=== PATIENT | female | born 1965 | race Caucasian/White ===

== ENCOUNTER 2017-12-15 08:28 | Inpatient (IN) ==
[2017-12-15] MEDS ORDERED: Furosemide 40 MG/4 ML VIAL IVP ONE (08:44)
[2017-12-15] MEDS ORDERED: methylPREDNISolone 125 MG/2 ML VIAL IVP ONE (08:44)
[2017-12-15] MEDS ORDERED: Ipratropium/Albuterol Neb 3 ML IH ONE (08:44)
[2017-12-15 09:00] LABS: Basophils # 0.1 K/mcL (0.0-0.2); Basophils % 0.3 %; Eosinophils % 0.1 %; Hematocrit 51.7 % (35.3-44.9); Hemoglobin 16.2 g/dL (11.5-15.4); Immature Granulocytes % 0.5 % (0-4); Lymphocytes # 0.9 K/mcL (0.6-4.6); Mean Corpuscular HGB Conc 31.3 g/dL (31.6-35.5); Mean Corpuscular Hemoglobin 28.5 pg (28.0-33.3); Mean Corpuscular Volume 90.9 fL (83.0-100.0); Monocytes # 1.4 K/mcL (0.0-1.3); Monocytes % 7.4 %; Platelet Count 202 K/mcL (140-400); Red Blood Count 5.69 M/mcL (3.82-4.97); Red Cell Distribution Width 15.6 % (11.5-14.5); Segmented Neutrophils % 86.7 %
[2017-12-15 09:09] LABS: INR 1.2; Prothrombin Time 13.3 Seconds (9.4-12.1)
[2017-12-15] MEDS ORDERED: Nitroglycerin 25 MG/250 ML INFUS..BTL IVC SCH (09:15)
[2017-12-15 09:20] LABS: BUN/Creatinine Ratio 15 (6-26); Blood Urea Nitrogen 11 mg/dL (6-20); Calcium 9.9 mg/dL (8.6-10.3); Carbon Dioxide 32 mEq/L (23-29); Chloride 95 mEq/L (98-107); Glucose 233 mg/dL (70-105); Osmolality,Calculated 283 (280-300); Potassium 4.6 mEq/L (3.5-5.1); Sodium 133 mEq/L (136-145); Troponin I < 0.03 ng/mL (< 0.04); eGFR For Non-African Americans > 60 (> 60)
[2017-12-15] MEDS ORDERED: 0.9 % Sodium Chloride 250 ML ONE (09:23)
[2017-12-15] MEDS ORDERED: levoFLOXacin 500 MG TABLET PO ONE (09:42)
[2017-12-15 09:47] LABS: Bilirubin,Urine Negative (Negative); Blood,Urine Small (Negative); Clarity,Urine Clear (Clear); Color,Urine Yellow (Yellow); Glucose,Urine (UA) Normal (Normal); Ketones,Urine Negative (Negative); Leukocyte Esterase,Urine Negative (Negative); Nitrite,Urine Negative (Negative); Protein,Urine 30 mg/dL (Neg-Trace); Urobilinogen,Urine Normal (Normal)
[2017-12-15 09:50] LABS: Bacteria,Urine None Seen per hpf (None-Few); Hyaline Casts,Urine None Seen per lpf (None-Few); RBC,Urine 0-3 per hpf (0-3); Squamous Epithelial Cell,Urine Many per lpf (None-Few); WBC,Urine 0-3 per hpf (0-3)
[2017-12-15] MEDS ORDERED: Aspirin 81 MG TAB.CHEW ONE (10:09)
[2017-12-15] MEDS: Aspirin 81 MG TAB.CHEW PO STA ×2 (10:10→10:24)
[2017-12-15] MEDS ORDERED: Isovue-370 500 ML INFUS..BTL IV ONE (10:41)
--- NOTE | 2017-12-15 10:47 | Emergency Department Note ---
Disposition Clinical Impression: Chest pain, COPD exacerbation, Lung nodules, Atypical chest pain Disposition: Admitted As Inpatient Condition: Fair Chest Pain HPI - General Chief Complaint: ED Chest Pain Stated Complaint: "CP,back pain,cough" Time Seen by Provider: 12/15/17 08:30 Source: patient, family Limitations: no limitations Vital Signs Reviewed: Yes Nursing Notes Reviewed: Yes - History of Present Illness HPI Narrative: Ms. Urbano is a 52 year old female patient presenting to the emergency department due to acute onset of dull chest pain that started about 3 hours ago. Pt states that she woke up with pain in her chest and took a nitro which helped relieve her discomfort. Pt also states sob, nausea and radiation of pain to left arm. Pt states that the sob has been ongoing for the past few days but assumed it was related to her history of copd, but was concerned about the intermittent chills/fevers she has been experiencing. 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 Pt complaint: chest pain Onset (ago): hour(s) Duration: constant Pain Location: left chest Severity scale (1-10): 6 Quality: dull Pain Radiation: LUE Improves with: nothing Worsens with: nothing Associated symptoms: Reports: nausea, dyspnea, cough - Related Data Home Medications Medication Instructions Recorded Confirmed Aspirin [Adult Aspirin Regimen] 81 mg PO DAILY 12/15/17 12/15/17 Atorvastatin Calcium [Lipitor] 80 mg PO DAILY 12/15/17 12/15/17 Cholecalciferol (D-3) [Vitamin D] 1,000 unit PO BID 12/15/17 12/15/17 Diclofenac Sodium [Voltaren] 1 appl TP QID PRN 12/15/17 12/15/17 Divalproex (24 HR) [Depakote ER 250 mg PO BID 12/15/17 12/15/17 (24 HR)] Ferrous Sulfate [Iron] 325 mg PO DAILY 12/15/17 12/15/17 Furosemide [Lasix] 80 mg PO DAILY PRN 12/15/17 12/15/17 Gabapentin [Neurontin] 800 mg PO TID 12/15/17 12/15/17 Insulin ASPART [Novolog Flexpen] 2 - 12 unit SQ TID 12/15/17 12/15/17 Insulin DETEMIR [Levemir Flextouch] 15 unit PO DAILY 12/15/17 12/15/17 Ipratropium/Albuterol Sulfate 1 puff IH QID 12/15/17 12/15/17 [Combivent Respimat Inhal [place]] Liraglutide [Victoza 3-Venkat] 1.8 mg SQ DAILY 12/15/17 12/15/17 Loratadine [Allergy Relief] 10 mg PO DAILY 12/15/17 12/15/17 Magnesium Oxide [Magnesium] 400 mg PO DAILY 12/15/17 12/15/17 Metformin HCl 1,000 mg PO BID 12/15/17 12/15/17 Metoprolol [Lopressor] 25 mg PO BID 12/15/17 12/15/17 Montelukast [Singulair] 10 mg PO DAILY 12/15/17 12/15/17 Omeprazole [PriLOSEC] 40 mg PO DAILY 12/15/17 12/15/17 Potassium Chloride [K-Tab ER] 20 meq PO DAILY 12/15/17 12/15/17 RX: Budesonide/Formoterol 160/4.5 2 puff PO BID 12/15/17 12/15/17 [Symbicort 160/4.5] RX: HYDROcodone/Acet 10/325 mg 0.5 tab PO BID 12/15/17 12/15/17 [Vancleave 10-325 mg] RX: Nitroglycerin [Nitrostat] 1 tab SL AD 12/15/17 12/15/17 RX: Oxygen 2 - 5 l IH DAILY 12/15/17 12/15/17 RX: Sertraline [Zoloft] 100 mg PO DAILY 12/15/17 12/15/17 Ticagrelor [Brilinta] 90 mg PO BID 12/15/17 12/15/17 Tiotropium [Spiriva] 1 puff IH DAILY 12/15/17 12/15/17 Allergies Allergy/AdvReac Type Severity Reaction Status Date / Time No Known Allergies Allergy Verified 12/15/17 08:42 Constitutional: Reports: chills Cardiovascular: Reports: chest pain, dyspnea on exertion Respiratory: Reports: cough, dyspnea Gastrointestinal: Reports: nausea. Denies: abdominal pain, vomiting Musculoskeletal: Reports: back pain. Denies: neck pain Psychiatric: Denies: anxiety, depression Endocrine: Denies: fatigue, heat or cold intolerance Hematological/Lymphatic: Denies: easy bleeding, easy bruising Chest Pain PMH - Past Medical History Medical history: Reports: diabetes, hyperlipidemia, hypertension, myocardial infarction Psychiatric history: Reports: no psych history - Social History Smoking Status: Former smoker Alcohol use: Reports: none Drug use: Reports: none Physical Exam - General Limitations: no limitations General appearance: alert - Head Head exam: atraumatic, normocephalic - Chest Chest inspection: Present: symmetric chest wall rise - Respiratory Respiratory exam: Present: other (Diffuse Crackles) - Cardiovascular Cardiovascular exam: Present: regular rate, normal rhythm - Abdominal Exam Abdominal exam: Present: soft, Non-Tender, normal bowel sounds - Expanded Lower Extremity Exam Hip/Pelvis exam: Present: normal inspection Upper leg exam: Present: normal inspection Knee exam: Present: normal inspection Lower leg exam: Present: normal inspection Ankle exam: Present: normal inspection Foot/toe exam: Present: normal inspection - Back Exam Back exam: Present: other - Neurological Exam Neurological exam: Present: alert, oriented X3 - Psychiatric Psychiatric exam: Present: normal affect, normal mood - Skin Skin exam: Present: warm, dry, intact Course Vital Signs Temperature 98.2 F 12/15/17 08:30 Pulse Rate 123 12/15/17 08:30 Respiratory Rate 20 12/15/17 08:30 Blood Pressure 133/83 12/15/17 08:30 O2 Sat by Pulse Oximetry 88 12/15/17 08:30 Temperature 98.2 F 12/15/17 08:36 Pulse Rate 132 12/15/17 10:06 Respiratory Rate 18 12/15/17 13:49 Blood Pressure 105/64 12/15/17 13:49 O2 Sat by Pulse Oximetry 93 12/15/17 10:06 Oxygen Delivery Oxygen Delivery Nasal Cannula Chest Pain - Lab Data Result diagrams: 12/15/17 08:42 12/15/17 08:42 Lab Results 12/15/17 12/15/17 12/15/17 Range/Units 08:42 08:42 08:42 WBC 18.5 H (4.3-11.1) K/mcL RBC 5.69 H (3.82-4.97) M/mcL Hgb 16.2 H (11.5-15.4) g/dL Hct 51.7 H (35.3-44.9) % MCV 90.9 (83.0-100.0) fL MCH 28.5 (28.0-33.3) pg MCHC 31.3 L (31.6-35.5) g/dL RDW 15.6 H (11.5-14.5) % Plt Count 202 (140-400) K/mcL MPV 11.0 (9.4-12.4) fL Immature Gran % 0.5 (0-4) % Seg Neutrophils % 86.7 % Lymphocytes % 5.0 % Monocytes % 7.4 % Eosinophils % 0.1 % Basophils % 0.3 % Neutrophils # 16.0 H (1.6-8.9) K/mcL Lymphocytes # 0.9 (0.6-4.6) K/mcL Monocytes # 1.4 H (0.0-1.3) K/mcL Eosinophils # 0.0 (0.0-0.6) K/mcL Basophils # 0.1 (0.0-0.2) K/mcL PT 13.3 H (9.4-12.1) Seconds INR 1.2 D-Dimer 967 H (0-500) ng/mLFEU Sodium 133 L (136-145) mEq/L Potassium 4.6 (3.5-5.1) mEq/L Chloride 95 L (98-107) mEq/L Carbon Dioxide 32 H (23-29) mEq/L BUN 11 (6-20) mg/dL Creatinine 0.74 (0.60-1.20) mg/dL Est GFR ( Amer) > 60 (> 60) Est GFR (Non-Af Amer) > 60 (> 60) BUN/Creatinine Ratio 15 (6-26) Glucose 233 H (70-105) mg/dL Calculated Osmolality 283 (280-300) Calcium 9.9 (8.6-10.3) mg/dL Troponin I < 0.03 (< 0.04) ng/mL B-Natriuretic Peptide (Less than 100) pg/mL Urine Color (Yellow) Urine Clarity (Clear) Urine pH (5.0-8.0) pH Units Ur Specific [place] (1.010-1.025) Urine Protein (Neg-Trace) mg/dL Urine Glucose (UA) (Normal) mg/dL Urine Ketones (Negative) mg/dL Urine Blood (Negative) Urine Nitrite (Negative) Urine Bilirubin (Negative) Urine Urobilinogen (Normal) mg/dL Ur Leukocyte Esterase (Negative) Urine Microscopic RBC (0-3) per hpf Urine Microscopic WBC (0-3) per hpf Ur Squamous Epith Cells (None-Few) per lpf Urine Bacteria (None-Few) per hpf Hyaline Casts (None-Few) per lpf Ur Culture Indicated? (NO) 12/15/17 12/15/17 Range/Units 08:42 09:36 WBC (4.3-11.1) K/mcL RBC (3.82-4.97) M/mcL Hgb (11.5-15.4) g/dL Hct (35.3-44.9) % MCV (83.0-100.0) fL MCH (28.0-33.3) pg MCHC (31.6-35.5) g/dL RDW (11.5-14.5) % Plt Count (140-400) K/mcL MPV (9.4-12.4) fL Immature Gran % (0-4) % Seg Neutrophils % % Lymphocytes % % Monocytes % % Eosinophils % % Basophils % % Neutrophils # (1.6-8.9) K/mcL Lymphocytes # (0.6-4.6) K/mcL Monocytes # (0.0-1.3) K/mcL Eosinophils # (0.0-0.6) K/mcL Basophils # (0.0-0.2) K/mcL PT (9.4-12.1) Seconds INR D-Dimer (0-500) ng/mLFEU Sodium (136-145) mEq/L Potassium (3.5-5.1) mEq/L Chloride (98-107) mEq/L Carbon Dioxide (23-29) mEq/L BUN (6-20) mg/dL Creatinine (0.60-1.20) mg/dL Est GFR ( Amer) (> 60) Est GFR (Non-Af Amer) (> 60) BUN/Creatinine Ratio (6-26) Glucose (70-105) mg/dL Calculated Osmolality (280-300) Calcium (8.6-10.3) mg/dL Troponin I (< 0.04) ng/mL B-Natriuretic Peptide 61 (Less than 100) pg/mL Urine Color Yellow (Yellow) Urine Clarity Clear (Clear) Urine pH 6.0 (5.0-8.0) pH Units Ur Specific [place] 1.010 (1.010-1.025) Urine Protein 30 H (Neg-Trace) mg/dL Urine Glucose (UA) Normal (Normal) mg/dL Urine Ketones Negative (Negative) mg/dL Urine Blood Small H (Negative) Urine Nitrite Negative (Negative) Urine Bilirubin Negative (Negative) Urine Urobilinogen Normal (Normal) mg/dL Ur Leukocyte Esterase Negative (Negative) Urine Microscopic RBC 0-3 (0-3) per hpf Urine Microscopic WBC 0-3 (0-3) per hpf Ur Squamous Epith Cells Many H (None-Few) per lpf Urine Bacteria None Seen (None-Few) per hpf Hyaline Casts None Seen (None-Few) per lpf Ur Culture Indicated? NO (NO) Attestation Statement - Attestation Attestation: I, Eleno Guillermo DO, examined this patient [id number] and my medical decision-making was reviewed with Saul SARGENT-JOSIE I agree with the documented findings, disposition and treatment plan as described except to the extent set forth below. Please see my progress notes for details.
--- NOTE | 2017-12-15 10:48 | Emergency Department Note ---
Disposition Clinical Impression: Chest pain, COPD exacerbation, Lung nodules, Atypical chest pain Disposition: Admitted As Inpatient Condition: Fair Time of Disposition: 09:54 General Adult HPI - General Chief complaint: ED Chest Pain Stated complaint: "CP,back pain,cough" Time Seen by Provider: 12/15/17 08:30 Source: patient, family Mode of arrival: wheelchair Limitations: no limitations Nursing Notes Reviewed: Yes Vital Signs Reviewed: Yes - History of Present Illness HPI Narrative: Patient is a 52-year-old female that presents emergency Department with chest pain. Patient states that this began around 4:30 this morning. Patient states is located on the left side of her chest and will radiate into her left neck. Patient denies any radiation to her arms or into her back. Patient states that she has had some associated shortness of breath with her chest pain. Patient al so reports that she took one nitroglycerin and this did mildly help her pain. Patient also states that she has had one episode of vomiting. Patient states that she has had 2 previous MIs and 2 stents placed. Patient also states that she does have a history of congestive heart failure and COPD. Patient states that her shortness of breath began approximately one day ago. Patient denies any hormone therapy, recent long car rides, recent surgeries or any history of cancer. Pain Scale: 0 - Related Data Allergies Allergy/AdvReac Type Severity Reaction Status Date / Time No Known Allergies Allergy Verified 12/15/17 08:42 All systems ED: reviewed and negative except as stated. Cardiovascular: Reports: chest pain Respiratory: Reports: cough, dyspnea Gastrointestinal: Reports: nausea, vomiting Past Medical History - Past Medical History Medical history: Reports: diabetes, hyperlipidemia, hypertension, myocardial infarction Psychiatric history: Reports: no psych history - Social History Smoking Status: Former smoker Smokeless Tobacco Status: No Alcohol use: Reports: none Drug use: Reports: none Physical Exam - General Limitations: no limitations General appearance: alert, in no apparent distress - Head Head exam: atraumatic, normocephalic - Eye Eye exam: Present: normal appearance, EOMI - Neck Neck exam: Present: normal inspection, full ROM, trachea midline - Respiratory Respiratory exam: Present: other (R[place] bilaterally) - Cardiovascular Cardiovascular exam: Present: normal rhythm, tachycardia, normal heart sounds, +S1, +S2 - Abdominal Exam Abdominal exam: Present: soft, Non-Tender, normal bowel sounds - Neurological Exam Neurological exam: Present: alert, oriented X3 - Psychiatric Psychiatric exam: Present: normal affect, normal mood - Skin Skin exam: Present: warm, dry, intact Course Vital Signs Temperature 98.2 F 12/15/17 08:30 Pulse Rate 123 12/15/17 08:30 Respiratory Rate 20 12/15/17 08:30 Blood Pressure 133/83 12/15/17 08:30 O2 Sat by Pulse Oximetry 88 12/15/17 08:30 Temperature 98.2 F 12/15/17 08:36 Pulse Rate 132 12/15/17 10:06 Respiratory Rate 22 12/15/17 10:06 Blood Pressure 113/76 12/15/17 10:06 O2 Sat by Pulse Oximetry 93 12/15/17 10:06 Oxygen Delivery Oxygen Delivery Nasal Cannula Medical Decision Making - MDM Narrative Medical decision making narrative: Due the patient is not emergency Department with chest pain and shortness of breath we will obtain basic lab for testing CBC, BMP, trunk chest x-ray and EKG. We will also obtain a BMP and a urinalysis. Patient will be given breathing treatment, Lasix and steroids here in the emergency department. Due to the patient's history of cardiac disease and acute onset of her chest pain patient will likely need admission to the hospital. Patient did have a significant elevated white count of greater than 18. Chest x-ray showed concern for pulmonary edema based on our read here in the emergency department. Patient did have a hemoglobin of 16.2. The patient will need to be admitted to the hospital for further evaluation and management of likely COPD exacerbation and pulmonary edema. Called and spoke with the admitting hospitals Dr. Caro and she has requested a d-dimer be ordered. The d-dimer was ordered and was elevated at 967. A CTA of the chest will be ordered. CTA was negative for pulmonary embolus. There was evidence of possible multifocal pneumonia versus inflammatory changes. The patient will need to be admitted to the hospital for further evaluation and management of her chest pain and respiratory symptoms. 1308 I called and spoke the admitting hospitalist Dr. Caro and she is accepted the patient to their service. Patient be admitted to the hospital at this time for further evaluation and management. - Medical Records Medical records reviewed: Yes I reviewed the patient's medical records. - Lab Data Lab results reviewed: Yes I reviewed the patient's lab results. Result diagrams: 12/16/17 01:25 12/16/17 01:25 Lab Results 12/15/17 12/15/17 12/15/17 Range/Units 08:42 08:42 08:42 WBC 18.5 H (4.3-11.1) K/mcL RBC 5.69 H (3.82-4.97) M/mcL Hgb 16.2 H (11.5-15.4) g/dL Hct 51.7 H (35.3-44.9) % MCV 90.9 (83.0-100.0) fL MCH 28.5 (28.0-33.3) pg MCHC 31.3 L (31.6-35.5) g/dL RDW 15.6 H (11.5-14.5) % Plt Count 202 (140-400) K/mcL MPV 11.0 (9.4-12.4) fL Immature Gran % 0.5 (0-4) % Seg Neutrophils % 86.7 % Lymphocytes % 5.0 % Monocytes % 7.4 % Eosinophils % 0.1 % Basophils % 0.3 % Neutrophils # 16.0 H (1.6-8.9) K/mcL Lymphocytes # 0.9 (0.6-4.6) K/mcL Monocytes # 1.4 H (0.0-1.3) K/mcL Eosinophils # 0.0 (0.0-0.6) K/mcL Basophils # 0.1 (0.0-0.2) K/mcL PT 13.3 H (9.4-12.1) Seconds INR 1.2 D-Dimer 967 H (0-500) ng/mLFEU Sodium 133 L (136-145) mEq/L Potassium 4.6 (3.5-5.1) mEq/L Chloride 95 L (98-107) mEq/L Carbon Dioxide 32 H (23-29) mEq/L BUN 11 (6-20) mg/dL Creatinine 0.74 (0.60-1.20) mg/dL Est GFR ( Amer) > 60 (> 60) Est GFR (Non-Af Amer) > 60 (> 60) BUN/Creatinine Ratio 15 (6-26) Glucose 233 H (70-105) mg/dL Calculated Osmolality 283 (280-300) Calcium 9.9 (8.6-10.3) mg/dL Troponin I < 0.03 (< 0.04) ng/mL B-Natriuretic Peptide (Less than 100) pg/mL Urine Color (Yellow) Urine Clarity (Clear) Urine pH (5.0-8.0) pH Units Ur Specific [place] (1.010-1.025) Urine Protein (Neg-Trace) mg/dL Urine Glucose (UA) (Normal) mg/dL Urine Ketones (Negative) mg/dL Urine Blood (Negative) Urine Nitrite (Negative) Urine Bilirubin (Negative) Urine Urobilinogen (Normal) mg/dL Ur Leukocyte Esterase (Negative) Urine Microscopic RBC (0-3) per hpf Urine Microscopic WBC (0-3) per hpf Ur Squamous Epith Cells (None-Few) per lpf Urine Bacteria (None-Few) per hpf Hyaline Casts (None-Few) per lpf Ur Culture Indicated? (NO) 12/15/17 12/15/17 Range/Units 08:42 09:36 WBC (4.3-11.1) K/mcL RBC (3.82-4.97) M/mcL Hgb (11.5-15.4) g/dL Hct (35.3-44.9) % MCV (83.0-100.0) fL MCH (28.0-33.3) pg MCHC (31.6-35.5) g/dL RDW (11.5-14.5) % Plt Count (140-400) K/mcL MPV (9.4-12.4) fL Immature Gran % (0-4) % Seg Neutrophils % % Lymphocytes % % Monocytes % % Eosinophils % % Basophils % % Neutrophils # (1.6-8.9) K/mcL Lymphocytes # (0.6-4.6) K/mcL Monocytes # (0.0-1.3) K/mcL Eosinophils # (0.0-0.6) K/mcL Basophils # (0.0-0.2) K/mcL PT (9.4-12.1) Seconds INR D-Dimer (0-500) ng/mLFEU Sodium (136-145) mEq/L Potassium (3.5-5.1) mEq/L Chloride (98-107) mEq/L Carbon Dioxide (23-29) mEq/L BUN (6-20) mg/dL Creatinine (0.60-1.20) mg/dL Est GFR ( Amer) (> 60) Est GFR (Non-Af Amer) (> 60) BUN/Creatinine Ratio (6-26) Glucose (70-105) mg/dL Calculated Osmolality (280-300) Calcium (8.6-10.3) mg/dL Troponin I (< 0.04) ng/mL B-Natriuretic Peptide 61 (Less than 100) pg/mL Urine Color Yellow (Yellow) Urine Clarity Clear (Clear) Urine pH 6.0 (5.0-8.0) pH Units Ur Specific [place] 1.010 (1.010-1.025) Urine Protein 30 H (Neg-Trace) mg/dL Urine Glucose (UA) Normal (Normal) mg/dL Urine Ketones Negative (Negative) mg/dL Urine Blood Small H (Negative) Urine Nitrite Negative (Negative) Urine Bilirubin Negative (Negative) Urine Urobilinogen Normal (Normal) mg/dL Ur Leukocyte Esterase Negative (Negative) Urine Microscopic RBC 0-3 (0-3) per hpf Urine Microscopic WBC 0-3 (0-3) per hpf Ur Squamous Epith Cells Many H (None-Few) per lpf Urine Bacteria None Seen (None-Few) per hpf Hyaline Casts None Seen (None-Few) per lpf Ur Culture Indicated? NO (NO) - Radiology Data Radiology results reviewed: Yes I reviewed the patient's radiology results. Chest X-Ray 12/15/17 08:33 IMPRESSION: 1. No radiographic finding to account for patient's chest pain. D/ / Nayan Pearce MD / Nayan Pearce MD Interpreting Provider: Nayan Pearce MD - EKG Data EKG #1 EKG attestation: Yes I reviewed and interpreted this EKG. EKG results narrative: EKG shows sinus tach cardiac rate of 123 bpm, MI interval 147, QRS duration 91, QTC of 452. No evidence of STEMI on EKG. This compared to previous EKG on 03/06/13 which showed a sinus tachycardia at a rate of 106. No evidence of any acute ischemic changes. Attestation Statement - Attestation Attestation: I, Eleno Guillermo DO, examined this patient [id number] and my medical decision-making was reviewed with Dr. Yves Isaacs, Resident Physician. I agree with the documented findings, disposition and treatment plan as described except to the extent set forth below. Please see my progress notes for details.
--- NOTE | 2017-12-15 10:49 | Emergency Department Note ---
Disposition Clinical Impression: COPD exacerbation, Hx of heart failure, Lung nodules Chest pain Qualifiers: Chest pain type: unspecified Qualified Code(s): R07.9 - Chest pain, unspecified Disposition: Admitted As Inpatient Condition: Fair Referrals: Song Diaz DO [Primary Care Provider] - Forms: ED Satisfaction Letter Time of Disposition: 13:02 General Adult HPI - General Chief complaint: ED Chest Pain Stated complaint: "CP,back pain,cough" Time Seen by Provider: 12/15/17 08:30 Source: patient, family Mode of arrival: wheelchair Limitations: no limitations - History of Present Illness Pain Scale: 0 - Related Data Allergies Allergy/AdvReac Type Severity Reaction Status Date / Time No Known Allergies Allergy Verified 12/15/17 08:42 Constitutional: Reports: chills Cardiovascular: Reports: chest pain Respiratory: Reports: cough, dyspnea Gastrointestinal: Reports: nausea, vomiting Musculoskeletal: Reports: back pain. Denies: neck pain Psychiatric: Denies: anxiety, depression Endocrine: Denies: fatigue, heat or cold intolerance Hematological/Lymphatic: Denies: easy bleeding, easy bruising Past Medical History - Past Medical History Medical history: Reports: diabetes, hyperlipidemia, hypertension, myocardial infarction Psychiatric history: Reports: no psych history - Social History Smoking Status: Former smoker Smokeless Tobacco Status: No Alcohol use: Reports: none Drug use: Reports: none Physical Exam - General Limitations: no limitations General appearance: alert, in no apparent distress Course Vital Signs Temperature 98.2 F 12/15/17 08:30 Pulse Rate 123 12/15/17 08:30 Respiratory Rate 20 12/15/17 08:30 Blood Pressure 133/83 12/15/17 08:30 O2 Sat by Pulse Oximetry 88 12/15/17 08:30 Temperature 98.2 F 12/15/17 08:36 Pulse Rate 132 12/15/17 10:06 Respiratory Rate 22 12/15/17 10:06 Blood Pressure 113/76 12/15/17 10:06 O2 Sat by Pulse Oximetry 93 12/15/17 10:06 Oxygen Delivery Oxygen Delivery Nasal Cannula Medical Decision Making - Lab Data Result diagrams: 12/15/17 08:42 12/15/17 08:42 Lab Results 12/15/17 12/15/17 12/15/17 Range/Units 08:42 08:42 08:42 WBC 18.5 H (4.3-11.1) K/mcL RBC 5.69 H (3.82-4.97) M/mcL Hgb 16.2 H (11.5-15.4) g/dL Hct 51.7 H (35.3-44.9) % MCV 90.9 (83.0-100.0) fL MCH 28.5 (28.0-33.3) pg MCHC 31.3 L (31.6-35.5) g/dL RDW 15.6 H (11.5-14.5) % Plt Count 202 (140-400) K/mcL MPV 11.0 (9.4-12.4) fL Immature Gran % 0.5 (0-4) % Seg Neutrophils % 86.7 % Lymphocytes % 5.0 % Monocytes % 7.4 % Eosinophils % 0.1 % Basophils % 0.3 % Neutrophils # 16.0 H (1.6-8.9) K/mcL Lymphocytes # 0.9 (0.6-4.6) K/mcL Monocytes # 1.4 H (0.0-1.3) K/mcL Eosinophils # 0.0 (0.0-0.6) K/mcL Basophils # 0.1 (0.0-0.2) K/mcL PT 13.3 H (9.4-12.1) Seconds INR 1.2 D-Dimer 967 H (0-500) ng/mLFEU Sodium 133 L (136-145) mEq/L Potassium 4.6 (3.5-5.1) mEq/L Chloride 95 L (98-107) mEq/L Carbon Dioxide 32 H (23-29) mEq/L BUN 11 (6-20) mg/dL Creatinine 0.74 (0.60-1.20) mg/dL Est GFR ( Amer) > 60 (> 60) Est GFR (Non-Af Amer) > 60 (> 60) BUN/Creatinine Ratio 15 (6-26) Glucose 233 H (70-105) mg/dL Calculated Osmolality 283 (280-300) Calcium 9.9 (8.6-10.3) mg/dL Troponin I < 0.03 (< 0.04) ng/mL B-Natriuretic Peptide (Less than 100) pg/mL Urine Color (Yellow) Urine Clarity (Clear) Urine pH (5.0-8.0) pH Units Ur Specific [place] (1.010-1.025) Urine Protein (Neg-Trace) mg/dL Urine Glucose (UA) (Normal) mg/dL Urine Ketones (Negative) mg/dL Urine Blood (Negative) Urine Nitrite (Negative) Urine Bilirubin (Negative) Urine Urobilinogen (Normal) mg/dL Ur Leukocyte Esterase (Negative) Urine Microscopic RBC (0-3) per hpf Urine Microscopic WBC (0-3) per hpf Ur Squamous Epith Cells (None-Few) per lpf Urine Bacteria (None-Few) per hpf Hyaline Casts (None-Few) per lpf Ur Culture Indicated? (NO) 12/15/17 12/15/17 Range/Units 08:42 09:36 WBC (4.3-11.1) K/mcL RBC (3.82-4.97) M/mcL Hgb (11.5-15.4) g/dL Hct (35.3-44.9) % MCV (83.0-100.0) fL MCH (28.0-33.3) pg MCHC (31.6-35.5) g/dL RDW (11.5-14.5) % Plt Count (140-400) K/mcL MPV (9.4-12.4) fL Immature Gran % (0-4) % Seg Neutrophils % % Lymphocytes % % Monocytes % % Eosinophils % % Basophils % % Neutrophils # (1.6-8.9) K/mcL Lymphocytes # (0.6-4.6) K/mcL Monocytes # (0.0-1.3) K/mcL Eosinophils # (0.0-0.6) K/mcL Basophils # (0.0-0.2) K/mcL PT (9.4-12.1) Seconds INR D-Dimer (0-500) ng/mLFEU Sodium (136-145) mEq/L Potassium (3.5-5.1) mEq/L Chloride (98-107) mEq/L Carbon Dioxide (23-29) mEq/L BUN (6-20) mg/dL Creatinine (0.60-1.20) mg/dL Est GFR ( Amer) (> 60) Est GFR (Non-Af Amer) (> 60) BUN/Creatinine Ratio (6-26) Glucose (70-105) mg/dL Calculated Osmolality (280-300) Calcium (8.6-10.3) mg/dL Troponin I (< 0.04) ng/mL B-Natriuretic Peptide 61 (Less than 100) pg/mL Urine Color Yellow (Yellow) Urine Clarity Clear (Clear) Urine pH 6.0 (5.0-8.0) pH Units Ur Specific [place] 1.010 (1.010-1.025) Urine Protein 30 H (Neg-Trace) mg/dL Urine Glucose (UA) Normal (Normal) mg/dL Urine Ketones Negative (Negative) mg/dL Urine Blood Small H (Negative) Urine Nitrite Negative (Negative) Urine Bilirubin Negative (Negative) Urine Urobilinogen Normal (Normal) mg/dL Ur Leukocyte Esterase Negative (Negative) Urine Microscopic RBC 0-3 (0-3) per hpf Urine Microscopic WBC 0-3 (0-3) per hpf Ur Squamous Epith Cells Many H (None-Few) per lpf Urine Bacteria None Seen (None-Few) per hpf Hyaline Casts None Seen (None-Few) per lpf Ur Culture Indicated? NO (NO) Attestation Statement - Attestation Attestation: I, Eleno Guillermo DO, examined this patient [id number] and my medical decision-making was reviewed with Dr. Yves Isaacs, Resident Physician. I agree with the documented findings, disposition and treatment plan as described except to the extent set forth below. Please see my progress notes for details. 52-year-old female presents emergency room for evaluation of shortness of breath and chest pain. Over the last 24-48 hours she has had progressively worsening shortness of breath and difficulty breathing. She is orthopneic and has not been able to do anything as far as her normal axis daily living secondary to the shortness of breath. At an unknown time this morning the patient started chest discomfort and pain that woke her from sleep. She describes it as being persistent since approximately midnight. Patient thinks it similar to her previous myocardial infarctions. She has had 4 stents in the past. Initial EKG shows sinus tachycardia with no visible signs of ischemic changes or concern for myocardial ischemia this point. Patient is currently describing chest discomfort or shortness of breath. Denies fevers chills nausea vomiting or diarrhea. No headache or vision change. No new medications falls trauma or injury. She is sitting upright in the bed with oxygen in place. She typically uses 3 L of oxygen at home. She is alert she needed more oxygen. She also has a history of congestive heart failure. Patient's mucous membranes are moist trachea is midline no stridor no trismus. Lungs have diffuse crackles bilaterally in all 4 listing gutiérrez. Heart is regular and tachycardic. Abdomen is soft nontender nondistended no guarding no rigidity no peritoneal symptoms. No pulsatile masses or lesions noted at this time. Patient does have pitting edema bilateral lower extremities up to the knees. She has good pulses in extremities. She moves her upper and lower extremities without any difficulty. Neurologic evaluation shows no asymmetry. Cranial nerves III through XII are grossly intact. Patient is concerning for fluid overload versus anginal-like presentation. EKG CBC chemistry troponin and BNP along with urinalysis will be ordered and collected. Single dose of IV Lasix along with aspirin and nitroglycerin drip will be started for symptomatically control. Breathing treatments and steroids will also be given secondary to COPD history. Patient will be medically managed for what appears to be acute fluid overload with increased work of breathing and orthopnea with concern for anginal equivalent. Initial EKG is unremarkable and nondiagnostic. Disposition will be admission. Approximately 35 minutes of critical care will be applied the patient's hiram tment course secondary to multidisciplinary medical intervention as well as symptomatic treatment. See detailed documentation of the physical exam, medical intervention, medical decision-making and disposition in the resident physician's note. 1045 Patient feels much better after the nitroglycerin as well as breathing treatments have been provided. Chest x-ray does show what looks like early B- lines with no focal signs of fluid overload or vascular congestion. Patient is asymptomatic at this point. Presentation is most consistent this time with COPD exacerbation with underlying bronchitis versus pneumonia and pulmonary edema. The treatment courses been established for flash pulmonary edema considering the context of the presentation as well as a coarse crackles that were noted on ex am. At this time patient will be admitted to the hospitals for continuation of care. No other imaging modalities workup required at this point. Nitroglycerin drip has been titrated 25 g as been stable and the patient has been asymptomatic. Patient will be observed in emergency room until admission processes established. D-dimer was requested by the hospitalist prior to the admission. This test was ordered and is 967. CT angiography the chest is ordered for completion of care prior to the admission be established. 1300 CT angiography the chest is unremarkable. Patient is otherwise stable. There is concern for multifocal pneumonia versus cavitary lesions. Is also discussed the possibility of cancerous presentation of this point. Oral Levaquin was provided. Medications will be discussed with the hospitalist admission process will be completed
--- NOTE | 2017-12-15 13:43 | Internal Med History&Physical ---
<Ashish Yan S - Last Filed: 12/15/17 14:24> Date of Encounter: 12/15/17 Time of Encounter: 13:39 Internal Medicine - H&P: HPI Chief complaint: chest pain Admitted From: Home Plans for Post Hospital Care: Home History of present illness: [facility]. Urbano [facility] 52 [facility], COPD, chronic bronchitis, HTN, HDL, T2DM, bipolar d/o, hx of stents x 4 last was 10 yrs ago, GERD, anixety/depression. She states that her symptoms started yesterday and they woke her up from sleep. She took a nitro and that resolved her pain and then five minutes later she began to vomit and become SOB. At baseline at she uses 2L of oxygen during the day and 5L at night. Yesterday she had to turn up her oxygen to 3.5 L. She had 10/10 crushing chest pain that felt similar to her previous PR's and there was radiation to her left arm/back. Her SOB has been worsening for the last few days. At baseline she is SOB with any activity and at at rest. The pt describes an increase in watery sputum but denies changes in color. In the ER , the pt is given a nitro drip. She has a d-dimer of 967; CT scan was negative for PE. Past Med Surg Social Fam HX - Past Medical History Medical history: diabetes, hyperlipidemia, hypertension, myocardial infarction Psychiatric history: no psych history - Past Surgical History Additional surgical history: Heart Stent x4 - Social History Smoking Status: Former smoker Smokeless Tobacco Status: No Alcohol use: none Drug use: none Internal Medicine - H&P: Meds Aspirin [Adult Aspirin Regimen] 81 mg PO DAILY 12/15/17 [History] Atorvastatin Calcium [Lipitor] 80 mg PO DAILY 12/15/17 [History] Budesonide/Formoterol 160/4.5 [Symbicort 160/4.5] 2 puff PO BID 12/15/17 [History] Cholecalciferol (D-3) [Vitamin D] 1,000 unit PO BID 12/15/17 [History] Diclofenac Sodium [Voltaren] 1 appl TP QID PRN 12/15/17 [History] Divalproex (24 HR) [Depakote ER (24 HR)] 250 mg PO BID 12/15/17 [History] Ferrous Sulfate [Iron] 325 mg PO DAILY 12/15/17 [History] Furosemide [Lasix] 80 mg PO DAILY PRN 12/15/17 [History] Gabapentin [Neurontin] 800 mg PO TID 12/15/17 [History] HYDROcodone/Acet 10/325 mg [Paradis 10-325 mg] 0.5 tab PO BID 12/15/17 [History] Insulin ASPART [Novolog Flexpen] 2 - 12 unit SQ TID 12/15/17 [History] Insulin DETEMIR [Levemir Flextouch] 15 unit PO DAILY 12/15/17 [History] Ipratropium/Albuterol Sulfate [Combivent Respimat Inhal Dike] 1 puff IH QID 12/15/17 [History] Liraglutide [Victoza 3-Venkat] 1.8 mg SQ DAILY 12/15/17 [History] Loratadine [Allergy Relief] 10 mg PO DAILY 12/15/17 [History] Magnesium Oxide [Magnesium] 400 mg PO DAILY 12/15/17 [History] Metformin HCl 1,000 mg PO BID 12/15/17 [History] Metoprolol [Lopressor] 25 mg PO BID 12/15/17 [History] Montelukast [Singulair] 10 mg PO DAILY 12/15/17 [History] Nitroglycerin [Nitrostat] 1 tab SL AD 12/15/17 [History] Omeprazole [PriLOSEC] 40 mg PO DAILY 12/15/17 [History] Oxygen 2 - 5 l IH DAILY 12/15/17 [History] Potassium Chloride [K-Tab ER] 20 meq PO DAILY 12/15/17 [History] Sertraline [Zoloft] 100 mg PO DAILY 12/15/17 [History] Ticagrelor [Brilinta] 90 mg PO BID 12/15/17 [History] Tiotropium [Spiriva] 1 puff IH DAILY 12/15/17 [History] Allergy/AdvReac Type Severity Reaction Status Date / Time No Known Allergies Allergy Verified 12/15/17 08:42 All Systems PM: A 10-system review of systems was performed and is negative for pertinent find ings except as documented above in the HPI. - Constitutional Constitutional: chills, fatigue, fever(s) - EENT Ears: no decreased hearing, no tinnitus - Cardiovascular Cardiovascular ROS IM: chest pain, diaphoresis, dyspnea, dyspnea on exertion, no orthopnea, no palpitations - Respiratory Respiratory: cough, dyspnea, dyspnea on exertion, excessive phlegm production, no change in phlegm color - Gastrointestinal Gastrointestinal: abdominal pain, vomiting, no nausea - Musculoskeletal Musculoskeletal ROS IM: back pain, myalgias, stiffness - Integumentary Integumentary IM: sores, no rash - Neurological Neurological ROS: headache(s), no numbness, no tingling - Psychiatric Psychiatric: anxiety, depression - Constitutional Vitals: Temp Pulse Resp BP Pulse Ox 98.2 F 132 22 113/76 93 12/15/17 08:36 12/15/17 10:06 12/15/17 10:06 12/15/17 10:06 12/15/17 10:06 Exam: General - AOx3, slightly distressed, laying in bed HEENT - normocephalic, atraumatic, moist mucus membranes Cardio - tacycardic, s1s2, regular rhythm Lungs - decreased breath sounds bilaterally, no wheeze/rhonchi/crackles noted Abd - nontender, nondistended, no rebound/guarding, obese Extremities - 1+ pitting edema Skin - no rash, no track cueva, no tattoos Internal Med - H&P Results - Labs CBC & Chem 7: 12/15/17 08:42 12/15/17 08:42 Labs: Short CBC 12/15/17 Range/Units 08:42 WBC 18.5 H (4.3-11.1) K/mcL Hgb 16.2 H (11.5-15.4) g/dL Hct 51.7 H (35.3-44.9) % Plt Count 202 (140-400) K/mcL Neutrophils # 16.0 H (1.6-8.9) K/mcL BMP 12/15/17 08:42 Sodium 133 L Potassium 4.6 Chloride 95 L Carbon Dioxide 32 H BUN 11 Creatinine 0.74 Glucose 233 H Calcium 9.9 Cardiac Enzymes 12/15/17 Range/Units 08:42 Troponin I < 0.03 (< 0.04) ng/mL Urine 12/15/17 Range/Units 09:36 Urine Color Yellow (Yellow) Urine Clarity Clear (Clear) Urine pH 6.0 (5.0-8.0) pH Units Ur Specific [place] 1.010 (1.010-1.025) Urine Protein 30 H (Neg-Trace) mg/dL Urine Glucose (UA) Normal (Normal) mg/dL - Impressions ITS Impressions Chest X-Ray 12/15/17 08:33 IMPRESSION: 1. No radiographic finding to account for patient's chest pain. D/ / Nayan Pearce MD / Nayan Pearce MD Interpreting Provider: Nayan Pearce MD Chest CTA 12/15/17 10:41 IMPRESSION: No pulmonary emboli are identified. Acute bilateral multilobar nonspecific centrilobular pulmonary nodules seen with minimal adjacent ground-glass change most concerning for an acute atypical infectious/inflammatory process. Some of the small areas of nodularity demonstrate central lucency which could be related to associated bronchiectasis versus cavitation. There is also mild mediastinal lymphadenopathy. No spiculated lung mass or bulky lymphadenopathy. Recommend a follow-up CT scan of the chest following treatment to document resolution. Sequela of remote granulomatous process. D/ / Alvarado Velásquez MD / Alvarado Velásquez MD Interpreting Provider: Alvarado Velásquez MD - Assessment and plan (1) Sepsis Current Visit: Yes Status: Acute Assessment and plan: Pt presented with increasing sputum productive, fevers/chills, chest pain On admission pt met SIRS criteria - HR 132, WBC 18.5 - (+) source most likely atypical infxn vs inflammatory process seen on CT CXR negative for acute cardiopulmonary process Plan: - most likely due to a bacterial pneumonia IV solumedrol q8hr DuoNebs q6hr scheduled - monitor CBC/CMP - blood cultures pending - sputum cx pending - legionella, mycoplasma IgM/IgG, s pnuemo pending - lactic acid and procalcitonin pending - start Azithromycin 500mg PO daily and Rocephin 2g q24hr Qualifiers: Sepsis type: sepsis due to unspecified organism Qualified Code(s): A41.9 - Sepsis, unspecified organism (2) Lung nodules Current Visit: Yes Status: Acute Assessment and plan: On CT there were some small areas of nodularity and mild mediastinla LAD - may need close follow up after resolution of infxn for further workup (3) Acute on chronic respiratory failure Current Visit: Yes Status: Acute Assessment and plan: Pt usually requires 2L , currently requiring 4L - O2 sat 93% on 4L - most likely due to COPD exacerbation and underlying pneumonia - see plan as above for sepsis Qualifiers: Respiratory failure complication: unspecified whether with hypoxia or hypercapnia Qualified Code(s): J96.20 - Acute and chronic respiratory failure, unspecified whether with hypoxia or hypercapnia (4) Chest pain Current Visit: Yes Status: Acute Assessment and plan: Most likely due to underlying pneumonia causing pleuritic chest pain - may be unstable angina Pt has an extensive hx of cardiac problems, including multiple PR's and stents x 4 Troponin was <0.03 in the ER EKG showed sinus tacycardia, old anteroseptal PR -normal sinus rhythm - normal axis - no ST elevation or depression Plan: - cycle troponins x3 - ECHO pending - continue home dose Lasix 80mg PO daily Qualifiers: Chest pain type: other chest pain Qualified Code(s): R07.89 - Other chest pain; R07.8 - Other chest pain (5) COPD exacerbation Current Visit: Yes Status: Acute Assessment and plan: Most likely due to underlying pneumonia - see plan as above for sepsis (6) Tobacco abuse Current Visit: No Status: Chronic Assessment and plan: Smokes 1/2 ppd - offer nrt and counseling (7) Obesity (BMI 30.0-34.9) Current Visit: No Status: Chronic Assessment and plan: BMI 33.4 - healthier lifestyle choices (8) GERD (gastroesophageal reflux disease) Current Visit: No Status: Chronic Assessment and plan: On prilosec chronic continue home meds Qualifiers: Esophagitis presence: esophagitis presence not specified Qualified Code(s): K21.9 - Gastro-esophageal reflux disease without esophagitis (9) Type 2 diabetes mellitus Current Visit: No Status: Chronic Assessment and plan: Hx of T2DM - glucose was 233 - MDSS Qualifiers: Diabetes mellitus remote computer terminal operator insulin use: unspecified remote computer terminal operator insulin use status Diabetes mellitus complication status: with unspecified complications Qualified Code(s): E11.8 - Type 2 diabetes mellitus with unspecified complications (10) Anxiety and depression Current Visit: No Status: Chronic Assessment and plan: On sertaline (11) Hypertension Current Visit: No Status: Chronic Assessment and plan: BP 113/76 - controlled - on Lopressor Qualifiers: Hypertension type: essential hypertension Qualified Code(s): I10 - Essential (primary) hypertension (12) Hyperlipidemia Current Visit: No Status: Chronic Assessment and plan: On lipitor - chronic Qualifiers: Hyperlipidemia type: unspecified Qualified Code(s): E78.5 - Hyperlipidemia, unspecified (13) DVT prophylaxis Current Visit: Yes Status: Acute Assessment and plan: SQ heparin (14) Coronary artery disease Current Visit: Yes Status: Acute Assessment and plan: Hx of multiple PR's and stents x4 Plan: - continue aspirin, brillineta, lipitor, lopressor - continue lasix home dose Qualifiers: Coronary Disease-Associated Artery/Lesion type: unspecified vessel or lesion type [place] vs. transplanted heart: [place] heart Associated angina: with unstable angina Qualified Code(s): I25.110 - Atherosclerotic heart disease of [place] coronary artery with unstable angina pectoris - Time Spent With Patient Total time spent is greater than 50% in coordination of care (as documented) at patient's floor/unit and/or counseling patient: less than 15 minutes <Tayler Dawson - Last Filed: 12/16/17 15:00> Internal Medicine - H&P: HPI History of present illness: Ms. Urbano is a 52 year old female Past Med Surg Social Fam HX - Family History Mother Living Status: Still Living Hx Family Cardiac Disorders: Yes All Systems PM: A 10-system review of systems was performed and is negative for pertinent findings except as documented above in the HPI. - Constitutional Vitals: Temp Pulse Resp BP Pulse Ox 98.5 F 100 17 106/70 90 12/16/17 11:45 12/16/17 11:45 12/16/17 11:45 12/16/17 11:45 12/16/17 11:45 Internal Med - H&P Results - Labs CBC & Chem 7: 12/16/17 01:25 12/16/17 01:25 Labs: Short CBC 12/16/17 Range/Units 01:25 WBC 14.9 H (4.3-11.1) K/mcL Hgb 14.8 (11.5-15.4) g/dL Hct 46.6 H (35.3-44.9) % Plt Count 189 (140-400) K/mcL Neutrophils # 13.1 H (1.6-8.9) K/mcL BMP 12/16/17 01:25 Sodium 130 L Potassium 4.5 Chloride 92 L Carbon Dioxide 29 BUN 21 H Creatinine 0.90 Glucose 374 H Calcium 10.0 Cardiac Enzymes 12/15/17 12/15/17 12/16/17 Range/Units 14:40 18:47 01:25 Troponin I < 0.03 < 0.03 < 0.03 (< 0.04) ng/mL Liver Function 12/16/17 Range/Units 01:25 Total Bilirubin 0.2 L (0.3-1.0) mg/dL AST 15 (13-39) Units/L ALT 12 (7-52) Units/L Alkaline Phosphatase 124 H (34-104) Units/L Albumin 3.8 (3.5-5.7) g/dL - Impressions ITS Impressions Chest X-Ray 12/15/17 08:33 IMPRESSION: 1. No radiographic finding to account for patient's chest pain. D/ / Nayan Pearce MD / Nayan Pearce MD Interpreting Provider: Nayan Pearce MD Chest CTA 12/15/17 10:41 IMPRESSION: No pulmonary emboli are identified. Acute bilateral multilobar nonspecific centrilobular pulmonary nodules seen with minimal adjacent ground-glass change most concerning for an acute atypical infectious/inflammatory process. Some of the small areas of nodularity demonstrate central lucency which could be related to associated bronchiectasis versus cavitation. There is also mild mediastinal lymphadenopathy. No spiculated lung mass or bulky lymphadenopathy. Recommend a follow-up CT scan of the chest following treatment to document resolution. Sequela of remote granulomatous process. D/ / Alvarado Velásquez MD / Alvarado Velásquez MD Interpreting Provider: Alvarado Velásquez MD Echocardiogram 12/15/17 14:03 Impressions: LVEF 55-60%. Normal LV chamber size, wall thickness and function. Normal right ventricular structure and function. No significant valvular dysfunction. - Assessment and plan (1) Chest pain Current Visit: Yes Status: Resolved Qualifiers: Chest pain type: other chest pain Qualified Code(s): R07.89 - Other chest pain; R07.8 - Other chest pain (2) COPD exacerbation Current Visit: Yes Status: Acute (3) Lung nodules Current Visit: Yes Status: Acute (4) Tobacco abuse Current Visit: No Status: Chronic (5) Sepsis Current Visit: Yes Status: Acute Qualifiers: Sepsis type: sepsis due to unspecified organism Qualified Code(s): A41.9 - Sepsis, unspecified organism (6) Acute on chronic respiratory failure Current Visit: Yes Status: Resolved Qualifiers: Respiratory failure complication: unspecified whether with hypoxia or hypercapnia Qualified Code(s): J96.20 - Acute and chronic respiratory failure, unspecified whether with hypoxia or hypercapnia (7) Obesity (BMI 30.0-34.9) Current Visit: No Status: Chronic (8) GERD (gastroesophageal reflux disease) Current Visit: No Status: Chronic Qualifiers: Esophagitis presence: esophagitis presence not specified Qualified Code(s): K21.9 - Gastro-esophageal reflux disease without esophagitis (9) Type 2 diabetes mellitus Current Visit: No Status: Chronic Qualifiers: Diabetes mellitus long-term insulin use: unspecified remote computer terminal operator insulin use status Diabetes mellitus complication status: with unspecified complications Qualified Code(s): E11.8 - Type 2 diabetes mellitus with unspecified complications (10) Anxiety and depression Current Visit: No Status: Chronic (11) Hypertension Current Visit: No Status: Chronic Qualifiers: Hypertension type: essential hypertension Qualified Code(s): I10 - Essential (primary) hypertension (12) Hyperlipidemia Current Visit: No Status: Chronic Qualifiers: Hyperlipidemia type: unspecified Qualified Code(s): E78.5 - Hyperlipidemia, unspecified (13) DVT prophylaxis Current Visit: Yes Status: Acute (14) Coronary artery disease Current Visit: Yes Status: Acute Qualifiers: Coronary Disease-Associated Artery/Lesion type: unspecified vessel or lesion type [place] vs. transplanted heart: [place] heart Associated angina: with unstable angina Qualified Code(s): I25.110 - Atherosclerotic heart disease of [place] coronary artery with unstable angina pectoris - Time Spent With Patient Total time spent is greater than 50% in coordination of care (as documented) at patient's floor/unit and/or counseling patient: - Attending Attestation I examined this patient and my medical decision-making was reviewed with the Resident Physician. I agree with the documented findings, disposition and treatment plan as described except to the extent set forth below.
[2017-12-15] MEDS ORDERED: Naloxone 0.4 MG/ML INJ IVP PRN (13:57)
[2017-12-15] MEDS ORDERED: *HR* Dextrose 50 % in Water (Syg) 50 ML SYRINGE IVP PRN (14:42)
[2017-12-15] MEDS ORDERED: Dextrose Gel 15 GM/37.5 ML TUBE PO PRN ×2 (14:42)
[2017-12-15] MEDS ORDERED: D5% in Water 1,000 ML IVC PRN (14:42)
[2017-12-15] MEDS ORDERED: Gabapentin 400 MG CAPSULE PO SCH (15:45)
[2017-12-15] MEDS ORDERED: methylPREDNISolone 125 MG/2 ML VIAL IVP SCH (16:00)
[2017-12-15] MEDS: Azithromycin 250 MG TABLET PO SCH (16:15)
[2017-12-15] MEDS: cefTRIAXone 2,000 MG in Water for inj. (sterile) 20 ML 20 ML IVP SCH (16:16)
[2017-12-15] MEDS: Insulin LISPRO 300 UNITS/3 ML VIAL SQ SCH (16:19)
[2017-12-15] MEDS: Ipratropium/Albuterol Neb 3 ML IH SCH ×2 (16:36→21:57)
[2017-12-15] MEDS: *HR* Heparin 5,000 UNIT/ML VIAL SQ SCH (17:20)
[2017-12-15] MEDS ORDERED: Furosemide 40 MG TABLET PO PRN (17:27)
[2017-12-15] MEDS ORDERED: Nitroglycerin 0.4 MG TAB.SUBL SL PRN (17:30)
[2017-12-15] MEDS ORDERED: Ondansetron 4 MG/2 ML VIAL IVP PRN (17:30)
[2017-12-15] MEDS: *HR* Ticagrelor 90 MG TABLET PO SCH (20:38)
[2017-12-15] MEDS: Divalproex (24 HR) 250 MG TABLET PO SCH (20:39)
[2017-12-15] MEDS: Gabapentin 400 MG CAPSULE PO SCH (20:39)
[2017-12-15] MEDS ORDERED: NON-FORMULARY MEDICATION 1 EACH EACH (Ipratropium/Albuterol Sulfate [Combivent Respimat 20 IH SCH (21:00)
[2017-12-15] MEDS ORDERED: Insulin LISPRO 300 UNITS/3 ML VIAL SQ SCH (21:00)
[2017-12-15] MEDS ORDERED: Insulin DETEMIR 100 UNIT/ML X5UNITS SQ SCH (21:00)
[2017-12-15] MEDS: *HR* HYDROcodone/Acet 10/325 mg TABLET PO SCH (21:45)
[2017-12-15] MEDS: Budesonide/Formoterol 160/4.5 1 PUFF INH IH SCH (21:57)
[2017-12-15] MEDS ORDERED: Insulin DETEMIR 100 UNIT/ML X5UNITS SQ ONE (22:15)
[2017-12-16] MEDS: methylPREDNISolone 125 MG/2 ML VIAL IVP SCH ×4 (00:26→17:37)
[2017-12-16] MEDS: *HR* HYDROcodone/Acet 10/325 mg TABLET PO SCH ×2 (00:26→07:52)
[2017-12-16] MEDS ORDERED: Insulin LISPRO 300 UNITS/3 ML VIAL SQ ONE ×2 (01:12→14:50)
[2017-12-16 01:58] LABS: Basophils % 0.1 %; Hematocrit 46.6 % (35.3-44.9); Hemoglobin 14.8 g/dL (11.5-15.4); Immature Granulocytes % 0.5 % (0-4); Lymphocytes % 6.7 %; Mean Corpuscular HGB Conc 31.8 g/dL (31.6-35.5); Mean Corpuscular Hemoglobin 28.8 pg (28.0-33.3); Mean Corpuscular Volume 90.7 fL (83.0-100.0); Mean Platelet Volume 11.8 fL (9.4-12.4); Monocytes # 0.7 K/mcL (0.0-1.3); Monocytes % 4.4 %; Neutrophils # 13.1 K/mcL (1.6-8.9); Platelet Count 189 K/mcL (140-400); Red Blood Count 5.14 M/mcL (3.82-4.97); Red Cell Distribution Width 15.8 % (11.5-14.5); Segmented Neutrophils % 88.3 %
[2017-12-16 02:32] LABS: Bilirubin,Total 0.2 mg/dL (0.3-1.0)
[2017-12-16 02:33] LABS: Alanine Aminotransferase 12 Units/L (7-52); Albumin 3.8 g/dL (3.5-5.7); Alkaline Phosphatase 124 Units/L (34-104); Aspartate Amino Transferase 15 Units/L (13-39); BUN/Creatinine Ratio 23 (6-26); Blood Urea Nitrogen 21 mg/dL (6-20); Carbon Dioxide 29 mEq/L (23-29); Chloride 92 mEq/L (98-107); Globulin 3.9 g/dL (2.4-3.5); Glucose 374 mg/dL (70-105); Osmolality,Calculated 288 (280-300); Potassium 4.5 mEq/L (3.5-5.1); Sodium 130 mEq/L (136-145); Total Protein 7.7 g/dL (6.4-8.9); eGFR For Non-African Americans > 60 (> 60)
[2017-12-16] MEDS: Ipratropium/Albuterol Neb 3 ML IH SCH ×4 (04:21→22:08)
[2017-12-16] MEDS: *HR* Heparin 5,000 UNIT/ML VIAL SQ SCH ×2 (07:14→17:36)
[2017-12-16] MEDS: Loratadine 10 MG TABLET PO SCH (07:52)
[2017-12-16] MEDS: *HR* Ticagrelor 90 MG TABLET PO SCH ×2 (07:53→21:21)
[2017-12-16] MEDS: Azithromycin 250 MG TABLET PO SCH (07:54)
[2017-12-16] MEDS: Gabapentin 400 MG CAPSULE PO SCH ×3 (07:54→21:20)
[2017-12-16] MEDS: Magnesium Oxide 400 MG TABLET PO SCH (07:54)
[2017-12-16] MEDS: Aspirin Enteric Coated 81 MG Tablet PO SCH (07:54)
[2017-12-16] MEDS ORDERED: Insulin DETEMIR 100 UNIT/ML X5UNITS SQ SCH (08:00)
[2017-12-16] MEDS: Divalproex (24 HR) 250 MG TABLET PO SCH ×2 (08:13→21:21)
[2017-12-16] MEDS: Insulin LISPRO 300 UNITS/3 ML VIAL SQ SCH ×4 (08:15→21:27)
--- NOTE | 2017-12-16 08:55 | Internal Med Progress Note ---
<Tayler Dawson - Last Filed: 12/16/17 15:00> Hospitalist Progress Note - Exam Vitals: Temp Pulse Resp BP Pulse Ox 98.5 F 100 17 106/70 90 12/16/17 11:45 12/16/17 11:45 12/16/17 11:45 12/16/17 11:45 12/16/17 11:45 - Assessment and Plan (1) Chest pain Current Visit: Yes Status: Resolved (2) COPD exacerbation Current Visit: Yes Status: Acute (3) Lung nodules Current Visit: Yes Status: Acute (4) Tobacco abuse Current Visit: No Status: Chronic (5) Sepsis Current Visit: Yes Status: Acute (6) Acute on chronic respiratory failure Current Visit: Yes Status: Resolved (7) Obesity (BMI 30.0-34.9) Current Visit: No Status: Chronic (8) GERD (gastroesophageal reflux disease) Current Visit: No Status: Chronic (9) Type 2 diabetes mellitus Current Visit: No Status: Chronic (10) Anxiety and depression Current Visit: No Status: Chronic (11) Hypertension Current Visit: No Status: Chronic (12) Hyperlipidemia Current Visit: No Status: Chronic (13) DVT prophylaxis Current Visit: Yes Status: Acute (14) Coronary artery disease Current Visit: Yes Status: Acute - Time Spent with Patient Total time spent is greater than 50% in coordination of care (as documented) at patient's floor/unit and/or counseling patient: Internal Medicine: Result - Labs CBC & Chem 7: 12/16/17 01:25 12/16/17 01:25 Labs: Short CBC 12/16/17 Range/Units 01:25 WBC 14.9 H (4.3-11.1) K/mcL Hgb 14.8 (11.5-15.4) g/dL Hct 46.6 H (35.3-44.9) % Plt Count 189 (140-400) K/mcL Neutrophils # 13.1 H (1.6-8.9) K/mcL BMP 12/16/17 01:25 Sodium 130 L Potassium 4.5 Chloride 92 L Carbon Dioxide 29 BUN 21 H Creatinine 0.90 Glucose 374 H Calcium 10.0 Cardiac Enzymes 12/15/17 12/15/17 12/16/17 Range/Units 14:40 18:47 01:25 Troponin I < 0.03 < 0.03 < 0.03 (< 0.04) ng/mL Liver Function 12/16/17 Range/Units 01:25 Total Bilirubin 0.2 L (0.3-1.0) mg/dL AST 15 (13-39) Units/L ALT 12 (7-52) Units/L Alkaline Phosphatase 124 H (34-104) Units/L Albumin 3.8 (3.5-5.7) g/dL - ABG Interpretation ABG results: PT/INR, D-dimer PT 13.3 Seconds (9.4-12.1) H 12/15/17 08:42 D-Dimer 967 ng/mLFEU (0-500) H 12/15/17 08:42 - Impressions Impressions Echocardiogram 12/15/17 14:03 Impressions: LVEF 55-60%. Normal LV chamber size, wall thickness and function. Normal right ventricular structure and function. No significant valvular dysfunction. Consult Discharge Plan - Plan Referrals: Song Diaz DO [Primary Care Provider] - (Web-requested) - Attending Attestation I examined this patient and my medical decision-making was reviewed with the Resident Physician. I agree with the documented findings, disposition and treatment plan as described except to the extent set forth below. <Ashish Yan S - Last Filed: 12/17/17 07:01> Hospitalist Progress Note - Encounter Date of Encounter: 12/16/17 Time of Encounter: 08:52 - Subjective Interval History: [facility]rb[facility] 52 [facility], COPD, chronic bronchitis, HTN, HDL, T2DM, bipolar d/o, hx of stents x 4 last was 10 yrs ago, GERD, anixety/depression. She states that her symptoms started the day before she came to the hospital and they woke her up from sleep. She took a nitro and that resolved her pain and then five minutes later she began to vomit and become SOB. At baseline at she uses 2L of oxygen during the day and 5L at night. Yesterday she had to turn up her oxygen to 3.5 L. She had 10/10 crushing chest pain that felt similar to her previous NM's and there was radiation to her left arm/back. Her SOB has been worsening for the last few days. At baseline she is SOB with any activity and at at rest. The pt describes an increase in watery sputum but denies changes in color. In the ER , the pt is given a nitro drip. She has a d-dimer of 967; CT scan was negative for PE. Today the pt feels much better. CP has resolved. SOB improving. She has no n/v/d. No abd pain. At baseline oxygen use. - Exam Vitals: Temp Pulse Resp BP Pulse Ox 97.7 F 101 17 100/59 90 12/16/17 07:26 12/16/17 07:26 12/16/17 07:26 12/16/17 07:26 12/16/17 07:26 Exam: General - AOx3, slightly distressed, laying in bed HEENT - normocephalic, atraumatic, moist mucus membranes Cardio - tacycardic, s1s2, regular rhythm Lungs - decreased breath sounds bilaterally, mild expiratory wheeze Abd - nontender, nondistended, no rebound/guarding, obese Extremities - 1+ pitting edema Skin - no rash, no track cueva, no tattoos - Assessment and Plan (1) Sepsis Current Visit: Yes Status: Acute Assessment and Plan: Pt presented with increasing sputum productive, fevers/chills, chest pain On admission pt met SIRS criteria - HR 132, WBC 18.5 - (+) source most likely atypical infxn vs inflammatory process seen on CT Currently meets criteria for WBC of 14.9, HR 101 - afebrile - RR 17 - BP stable overnight CXR negative for acute cardiopulmonary process Lactic acid 3.9 on admission, 3.6 on repeat Legionella, s pneumo antigens negative Plan: - most likely due to a bacterial pneumonia IV solumedrol q8hr, will decrease to q12hr DuoNebs q6hr scheduled - monitor CBC/CMP - blood cultures pending - sputum cx pending - mycoplasma IgM/IgG pending - repeat lactic acid and procalcitonin pending - start Azithromycin 500mg PO daily and Rocephin 2g q24hr day 2 (2) Lung nodules Current Visit: Yes Status: Acute Assessment and Plan: On CT there were some small areas of nodularity and mild mediastinla LAD - may need close follow up after resolution of infxn for further workup (3) Acute on chronic respiratory failure Current Visit: Yes Status: Resolved Assessment and Plan: Pt usually requires 2L , requiring 4L on admission - O2 sat 93% on 4L on admission - most likely due to COPD exacerbation and underlying pneumonia - see plan as above for sepsis Currently the pt is back to baseline O2 use, on 2L currently (4) Chest pain Current Visit: Yes Status: Resolved Assessment and Plan: Resolved. Most likely due to underlying pneumonia causing pleuritic chest pain - may be unstable angina Pt has an extensive hx of cardiac problems, including multiple NM's and stents x 4 Troponin was <0.03 in the ER, repeat <0.03 too EKG showed sinus tacycardia, old anteroseptal NM -normal sinus rhythm - normal axis - no ST elevation or depression Plan: - ECHO pending - continue home dose Lasix 80mg PO daily - fluid restriction diet - cardiac/ada diet (5) COPD exacerbation Current Visit: Yes Status: Acute Assessment and Plan: Most likely due to underlying pneumonia - see plan as above for sepsis (6) Tobacco abuse Current Visit: No Status: Chronic Assessment and Plan: Smokes 1/2 ppd - offer nrt and counseling (7) Obesity (BMI 30.0-34.9) Current Visit: No Status: Chronic Assessment and Plan: BMI 33.4 - healthier lifestyle choices (8) GERD (gastroesophageal reflux disease) Current Visit: No Status: Chronic Assessment and Plan: On prilosec chronic continue home meds (9) Type 2 diabetes mellitus Current Visit: No Status: Chronic Assessment and Plan: Hx of T2DM - glucose was 233 on admission - glucose this morning 374 Plan: - MDSS - levemir 25U BID (10) Anxiety and depression Current Visit: No Status: Chronic Assessment and Plan: On sertaline (11) Hypertension Current Visit: No Status: Chronic Assessment and Plan: BP 100/59 - controlled - on Lopressor (12) Hyperlipidemia Current Visit: No Status: Chronic Assessment and Plan: On lipitor - chronic (13) DVT prophylaxis Current Visit: Yes Status: Acute Assessment and Plan: SQ heparin (14) Coronary artery disease Current Visit: Yes Status: Acute Assessment and Plan: Hx of multiple NM's and stents x4 Plan: - continue aspirin, brillineta, lipitor, lopressor - continue lasix home dose - Time Spent with Patient Total time spent is greater than 50% in coordination of care (as documented) at patient's floor/unit and/or counseling patient: less than 15 minutes Plan of Care Discussed with: patient Internal Medicine: Result - Labs CBC & Chem 7: 12/17/17 05:45 12/17/17 05:45 Labs: Short CBC 12/15/17 12/16/17 Range/Units 08:42 01:25 WBC 18.5 H 14.9 H (4.3-11.1) K/mcL Hgb 16.2 H 14.8 (11.5-15.4) g/dL Hct 51.7 H 46.6 H (35.3-44.9) % Plt Count 202 189 (140-400) K/mcL Neutrophils # 16.0 H 13.1 H (1.6-8.9) K/mcL BMP 12/15/17 12/16/17 08:42 01:25 Sodium 133 L 130 L Potassium 4.6 4.5 Chloride 95 L 92 L Carbon Dioxide 32 H 29 BUN 11 21 H Creatinine 0.74 0.90 Glucose 233 H 374 H Calcium 9.9 10.0 Cardiac Enzymes 12/15/17 12/15/17 12/15/17 Range/Units 08:42 14:40 18:47 Troponin I < 0.03 < 0.03 < 0.03 (< 0.04) ng/mL 12/16/17 Range/Units 01:25 Troponin I < 0.03 (< 0.04) ng/mL Liver Function 12/16/17 Range/Units 01:25 Total Bilirubin 0.2 L (0.3-1.0) mg/dL AST 15 (13-39) Units/L ALT 12 (7-52) Units/L Alkaline Phosphatase 124 H (34-104) Units/L Albumin 3.8 (3.5-5.7) g/dL Urine 12/15/17 Range/Units 09:36 Urine Color Yellow (Yellow) Urine Clarity Clear (Clear) Urine pH 6.0 (5.0-8.0) pH Units Ur Specific [place] 1.010 (1.010-1.025) Urine Protein 30 H (Neg-Trace) mg/dL Urine Glucose (UA) Normal (Normal) mg/dL - ABG Interpretation ABG results: PT/INR, D-dimer PT 13.3 Seconds (9.4-12.1) H 12/15/17 08:42 D-Dimer 967 ng/mLFEU (0-500) H 12/15/17 08:42 - Impressions Impressions Chest X-Ray 12/15/17 08:33 IMPRESSION: 1. No radiographic finding to account for patient's chest pain. D/ / Nayan Pearce MD / Nayan Pearce MD Interpreting Provider: Nayan Pearce MD Chest CTA 12/15/17 10:41 IMPRESSION: No pulmonary emboli are identified. Acute bilateral multilobar nonspecific centrilobular pulmonary nodules seen with minimal adjacent ground-glass change most concerning for an acute atypical infectious/inflammatory process. Some of the small areas of nodularity demonstrate central lucency which could be related to associated bronchiectasis versus cavitation. There is also mild mediastinal lymphadenopathy. No spiculated lung mass or bulky lymphadenopathy. Recommend a follow-up CT scan of the chest following treatment to document resolution. Sequela of remote granulomatous process. D/ / Alvarado Velásquez MD / Alvarado Velásquez MD Interpreting Provider: Alvarado Velásquez MD <Tayler Dawson - Last Filed: 12/16/17 15:00> (1) Chest pain Qualifiers: Chest pain type: other chest pain Qualified Code(s): R07.89 - Other chest pain; R07.8 - Other chest pain (5) Sepsis Qualifiers: Sepsis type: sepsis due to unspecified organism Qualified Code(s): A41.9 - Sepsis, unspecified organism (6) Acute on chronic respiratory failure Qualifiers: Respiratory failure complication: unspecified whether with hypoxia or hypercapnia Qualified Code(s): J96.20 - Acute and chronic respiratory failure, unspecified whether with hypoxia or hypercapnia (8) GERD (gastroesophageal reflux disease) Qualifiers: Esophagitis presence: esophagitis presence not specified Qualified Code(s): K21.9 - Gastro-esophageal reflux disease without esophagitis (9) Type 2 diabetes mellitus Qualifiers: Diabetes mellitus ferry terminal agent insulin use: unspecified intermediate insulin use status Diabetes mellitus complication status: with unspecified complications Qualified Code(s): E11.8 - Type 2 diabetes mellitus with unspecified complications (11) Hypertension Qualifiers: Hypertension type: essential hypertension Qualified Code(s): I10 - Essential (primary) hypertension (12) Hyperlipidemia Qualifiers: Hyperlipidemia type: unspecified Qualified Code(s): E78.5 - Hyperlipidemia, unspecified (14) Coronary artery disease Qualifiers: Coronary Disease-Associated Artery/Lesion type: unspecified vessel or lesion type [place] vs. transplanted heart: [place] heart Associated angina: with unstable angina Qualified Code(s): I25.110 - Atherosclerotic heart disease of [place] coronary artery with unstable angina pectoris <Ashish Yan - Last Filed: 12/17/17 07:01> (1) Sepsis Qualifiers: Sepsis type: sepsis due to unspecified organism Qualified Code(s): A41.9 - Sepsis, unspecified organism (3) Acute on chronic respiratory failure Qualifiers: Respiratory failure complication: unspecified whether with hypoxia or hypercapnia Qualified Code(s): J96.20 - Acute and chronic respiratory failure, unspecified whether with hypoxia or hypercapnia (4) Chest pain Qualifiers: Chest pain type: other chest pain Qualified Code(s): R07.89 - Other chest pain; R07.8 - Other chest pain (8) GERD (gastroesophageal reflux disease) Qualifiers: Esophagitis presence: esophagitis presence not specified Qualified Code(s): K21.9 - Gastro-esophageal reflux disease without esophagitis (9) Type 2 diabetes mellitus Qualifiers: Diabetes mellitus intermediate insulin use: unspecified [place] terminal agent insulin use status Diabetes mellitus complication status: with unspecified complications Qualified Code(s): E11.8 - Type 2 diabetes mellitus with unspecified complications (11) Hypertension Qualifiers: Hypertension type: essential hypertension Qualified Code(s): I10 - Essential (primary) hypertension (12) Hyperlipidemia Qualifiers: Hyperlipidemia type: unspecified Qualified Code(s): E78.5 - Hyperlipidemia, unspecified (14) Coronary artery disease Qualifiers: Coronary Disease-Associated Artery/Lesion type: unspecified vessel or lesion type [place] vs. transplanted heart: [place] heart Associated angina: with unstable angina Qualified Code(s): I25.110 - Atherosclerotic heart disease of [place] coronary artery with unstable angina pectoris
[2017-12-16] MEDS: *HR* HYDROcodone/Acet 5/325 mg TABLET PO SCH ×2 (09:48→21:21)
[2017-12-16] MEDS ORDERED: Tiotropium 18 MCG inhalation IH SCH ×2 (10:00)
[2017-12-16] MEDS: Furosemide 40 MG TABLET PO SCH (10:22)
[2017-12-16] MEDS: Budesonide/Formoterol 160/4.5 1 PUFF INH IH SCH ×2 (10:46→22:08)
[2017-12-16] MEDS: cefTRIAXone 2,000 MG in Water for inj. (sterile) 20 ML 20 ML IVP SCH (15:06)
--- NOTE | 2017-12-16 15:59 | Electrocardiograph Report ---
[facility] [email or web address] Test Date: 2017-12-15 Pat Name: Casi Urbano Department: EXAM3 Room: 2A42 Gender: F Family Medicine Chair: : 1965 Requested By: Yves Isaacs Order Number: [id number] Reading MD: Seth Murray Measurements Intervals [place] Rate: 123 P: 88 ME: 147 QRS: 81 QRSD: 91 T: 74 QT: 316 QTc: 452 Interpretive Statements Sinus tachycardia Anterior infarct, old Electronically Signed On 12-16-2017 15:58:25 EDT by Seth Murray
[2017-12-16] MEDS: Insulin DETEMIR 100 UNIT/ML X5UNITS SQ SCH (22:10)
[2017-12-17] MEDS: Ipratropium/Albuterol Neb 3 ML IH SCH ×4 (03:30→22:26)
[2017-12-17] MEDS: methylPREDNISolone 125 MG/2 ML VIAL IVP SCH (05:53)
[2017-12-17] MEDS: *HR* Heparin 5,000 UNIT/ML VIAL SQ SCH ×2 (05:54→17:37)
[2017-12-17 05:58] LABS: Basophils % 0.2 %; Eosinophils % 0.1 %; Hematocrit 43.1 % (35.3-44.9); Hemoglobin 13.6 g/dL (11.5-15.4); Immature Granulocytes % 0.5 % (0-4); Lymphocytes # 1.6 K/mcL (0.6-4.6); Lymphocytes % 12.4 %; Mean Corpuscular HGB Conc 31.6 g/dL (31.6-35.5); Mean Corpuscular Hemoglobin 28.6 pg (28.0-33.3); Mean Corpuscular Volume 90.5 fL (83.0-100.0); Mean Platelet Volume 10.7 fL (9.4-12.4); Monocytes # 0.7 K/mcL (0.0-1.3); Monocytes % 5.1 %; Neutrophils # 10.7 K/mcL (1.6-8.9); Platelet Count 183 K/mcL (140-400); Red Blood Count 4.76 M/mcL (3.82-4.97); Red Cell Distribution Width 15.5 % (11.5-14.5); Segmented Neutrophils % 81.7 %
[2017-12-17 06:20] LABS: Alanine Aminotransferase 10 Units/L (7-52); Albumin 3.3 g/dL (3.5-5.7); Albumin/Globulin Ratio 0.9 (1.1-2.2); Alkaline Phosphatase 96 Units/L (34-104); Aspartate Amino Transferase 7 Units/L (13-39); BUN/Creatinine Ratio 30 (6-26); Bilirubin,Total 0.2 mg/dL (0.3-1.0); Blood Urea Nitrogen 24 mg/dL (6-20); Calcium 9.7 mg/dL (8.6-10.3); Carbon Dioxide 38 mEq/L (23-29); Chloride 94 mEq/L (98-107); Globulin 3.5 g/dL (2.4-3.5); Glucose 351 mg/dL (70-105); Osmolality,Calculated 300 (280-300); Potassium 4.2 mEq/L (3.5-5.1); Sodium 136 mEq/L (136-145); Total Protein 6.8 g/dL (6.4-8.9); eGFR For Non-African Americans > 60 (> 60)
[2017-12-17] MEDS: Insulin LISPRO 300 UNITS/3 ML VIAL SQ SCH ×4 (08:45→20:49)
[2017-12-17] MEDS: Magnesium Oxide 400 MG TABLET PO SCH (08:46)
[2017-12-17] MEDS: *HR* Ticagrelor 90 MG TABLET PO SCH ×2 (08:46→20:48)
[2017-12-17] MEDS: *HR* HYDROcodone/Acet 5/325 mg TABLET PO SCH ×2 (08:46→20:47)
[2017-12-17] MEDS: Divalproex (24 HR) 250 MG TABLET PO SCH ×2 (08:46→20:47)
[2017-12-17] MEDS: Loratadine 10 MG TABLET PO SCH (08:46)
[2017-12-17] MEDS: Gabapentin 400 MG CAPSULE PO SCH ×3 (08:46→20:47)
[2017-12-17] MEDS: Aspirin Enteric Coated 81 MG Tablet PO SCH (08:47)
[2017-12-17] MEDS: Azithromycin 250 MG TABLET PO SCH (08:47)
[2017-12-17] MEDS: Furosemide 40 MG TABLET PO SCH (08:47)
[2017-12-17] MEDS ORDERED: Sennosides/Docusate Sodium TABLET PO PRN (08:50)
[2017-12-17] MEDS ORDERED: Insulin DETEMIR 100 UNIT/ML X5UNITS SQ ONE (08:50)
--- NOTE | 2017-12-17 08:53 | Internal Med Progress Note ---
<YanAshish S - Last Filed: 12/17/17 10:38> Hospitalist Progress Note - Encounter Date of Encounter: 12/17/17 Time of Encounter: 08:46 - Subjective Interval History: Ms. Urbano [facility] 52 [facility], COPD, chronic bronchitis, HTN, HDL, T2DM, bipolar d/o, hx of stents x 4 last was 10 yrs ago, GERD, anixety/depression. She states that her symptoms started the day before she came to the hospital and they woke her up from sleep. She took a nitro and that resolved her pain and then five minutes later she began to vomit and become SOB. At baseline at she uses 2L of oxygen during the day and 5L at night. Yesterday she had to turn up her oxygen to 3.5 L. She had 10/10 crushing chest pain that felt similar to her previous WV's and there was radiation to her left arm/back. Her SOB has been worsening for the last few days. At baseline she is SOB with any activity and at at rest. The pt describes an increase in watery sputum but denies changes in color. In the ER , the pt is given a nitro drip. She has a d-dimer of 967; CT scan was negative for PE. Today the pt feels much better. CP has resolved. SOB improving. Still has some mucus production, ivory in color and hard to get to come up. She has no n/v/d. No abd pain. At baseline oxygen use. - Exam Vitals: Temp Pulse Resp BP Pulse Ox 98 F 76 20 122/57 94 12/17/17 07:02 12/17/17 07:02 12/17/17 07:02 12/17/17 07:02 12/17/17 07:02 Exam: General - AOx3, slightly distressed, laying in bed HEENT - normocephalic, atraumatic, moist mucus membranes Cardio - tacycardic, s1s2, regular rhythm Lungs - decreased breath sounds bilaterally, air movement improving, mild expiratory wheeze heard B/L Abd - nontender, nondistended, no rebound/guarding, obese Extremities - 1+ pitting edema Skin - no rash, no track cueva, no tattoos - Assessment and Plan (1) Sepsis Current Visit: Yes Status: Acute Assessment and Plan: Pt presented with increasing sputum productive, fevers/chills, chest pain On admission pt met SIRS criteria - HR 132, WBC 18.5 - (+) source most likely atypical infxn vs inflammatory process seen on CT Currently does NOT meet criteria for sepsis - WBC count 13 - HR 76 - afebrile - RR 20 - BP stable overnight CXR negative for acute cardiopulmonary process Lactic acid 3.9 on admission, 3.6 on repeat; last lactic acid 2.0 Legionella, s pneumo antigens negative Plan: - most likely due to a bacterial pneumonia IV solumedrol q12hr d/c Start prednisone PO today 60mg DuoNebs q6hr scheduled - monitor CBC/CMP - blood cultures pending - sputum cx pending - mycoplasma IgM/IgG pending - procalcitonin pending - start Azithromycin 500mg PO daily and Rocephin 2g q24hr day 3 , plan to de- escalate tomorrow - Mucinex PO BID (2) Lung nodules Current Visit: Yes Status: Acute Assessment and Plan: On CT there were some small areas of nodularity and mild mediastinla LAD - may need close follow up after resolution of infxn for further workup (3) Acute on chronic respiratory failure Current Visit: Yes Status: Resolved Assessment and Plan: Pt usually requires 2L , requiring 4L on admission - O2 sat 93% on 4L on admission - most likely due to COPD exacerbation and underlying pneumonia - see plan as above for sepsis Currently the pt is back to baseline O2 use, on 2L currently (4) Chest pain Current Visit: Yes Status: Resolved Assessment and Plan: Resolved. Most likely due to underlying pneumonia causing pleuritic chest pain - may be unstable angina Pt has an extensive hx of cardiac problems, including multiple [place]'s and stents x 4 Troponin was <0.03 in the ER, repeat <0.03 too EKG showed sinus tacycardia, old anteroseptal [place] -normal sinus rhythm - normal axis - no ST elevation or depression ECHO showed LVEF 60% Plan: - continue home dose Lasix 80mg PO daily ---> d/c today - fluid restriction diet - cardiac/ada diet (5) COPD exacerbation Current Visit: Yes Status: Acute Assessment and Plan: Most likely due to underlying pneumonia - see plan as above for sepsis (6) Tobacco abuse Current Visit: No Status: Chronic Assessment and Plan: Smokes 1/2 ppd - offer nrt and counseling (7) Obesity (BMI 30.0-34.9) Current Visit: No Status: Chronic Assessment and Plan: BMI 33.4 - healthier lifestyle choices (8) GERD (gastroesophageal reflux disease) Current Visit: No Status: Chronic Assessment and Plan: On prilosec chronic continue home meds (9) Type 2 diabetes mellitus Current Visit: No Status: Chronic Assessment and Plan: Hx of T2DM - glucose was 233 on admission - glucose this morning 351 Plan: - HDSS - levemir 30U BID - give 10U levemir extra this morning (10) Anxiety and depression Current Visit: No Status: Chronic Assessment and Plan: On sertaline (11) Hypertension Current Visit: No Status: Chronic Assessment and Plan: BP 122/57 - controlled - on Lopressor (12) Hyperlipidemia Current Visit: No Status: Chronic Assessment and Plan: On lipitor - chronic (13) DVT prophylaxis Current Visit: Yes Status: Acute Assessment and Plan: SQ heparin (14) Coronary artery disease Current Visit: Yes Status: Acute Assessment and Plan: Hx of multiple [place]'s and stents x4 Plan: - continue aspirin, brillineta, lipitor, lopressor - discontinue lasix this morning (15) Constipation Current Visit: No Status: Chronic Assessment and Plan: Senna prn - Time Spent with Patient Total time spent is greater than 50% in coordination of care (as documented) at patient's floor/unit and/or counseling patient: less than 15 minutes Plan of Care Discussed with: patient Internal Medicine: Result - Labs CBC & Chem 7: 12/17/17 05:45 12/17/17 05:45 Labs: Short CBC 12/17/17 Range/Units 05:45 WBC 13.0 H (4.3-11.1) K/mcL Hgb 13.6 (11.5-15.4) g/dL Hct 43.1 (35.3-44.9) % Plt Count 183 (140-400) K/mcL Neutrophils # 10.7 H (1.6-8.9) K/mcL BMP 12/17/17 05:45 Sodium 136 Potassium 4.2 Chloride 94 L Carbon Dioxide 38 H BUN 24 H Creatinine 0.80 Glucose 351 H Calcium 9.7 Liver Function 12/17/17 Range/Units 05:45 Total Bilirubin 0.2 L (0.3-1.0) mg/dL AST 7 L (13-39) Units/L ALT 10 (7-52) Units/L Alkaline Phosphatase 96 (34-104) Units/L Albumin 3.3 L (3.5-5.7) g/dL - ABG Interpretation ABG results: PT/INR, D-dimer PT 13.3 Seconds (9.4-12.1) H 12/15/17 08:42 D-Dimer 967 ng/mLFEU (0-500) H 12/15/17 08:42 - Impressions Impressions Echocardiogram 12/15/17 14:03 Impressions: LVEF 55-60%. Normal LV chamber size, wall thickness and function. Normal right ventricular structure and function. No significant valvular dysfunction. Consult Discharge Plan - Plan Referrals: Song Diaz DO [Primary Care Provider] - (Web-requested) <Tayler Dawson - Last Filed: 12/17/17 12:21> Hospitalist Progress Note - Exam Vitals: Temp Pulse Resp BP Pulse Ox 98 F 81 20 114/60 92 12/17/17 10:51 12/17/17 10:51 12/17/17 10:51 12/17/17 10:51 12/17/17 10:51 - Assessment and Plan (1) Chest pain Current Visit: Yes Status: Resolved (2) COPD exacerbation Current Visit: Yes Status: Acute (3) Lung nodules Current Visit: Yes Status: Acute (4) Tobacco abuse Current Visit: No Status: Chronic (5) Sepsis Current Visit: Yes Status: Acute (6) Acute on chronic respiratory failure Current Visit: Yes Status: Resolved (7) Obesity (BMI 30.0-34.9) Current Visit: No Status: Chronic (8) GERD (gastroesophageal reflux disease) Current Visit: No Status: Chronic (9) Type 2 diabetes mellitus Current Visit: No Status: Chronic (10) Anxiety and depression Current Visit: No Status: Chronic (11) Hypertension Current Visit: No Status: Chronic (12) Hyperlipidemia Current Visit: No Status: Chronic (13) DVT prophylaxis Current Visit: Yes Status: Acute (14) Coronary artery disease Current Visit: Yes Status: Acute (15) Constipation Current Visit: No Status: Chronic - Time Spent with Patient Total time spent is greater than 50% in coordination of care (as documented) at patient's floor/unit and/or counseling patient: Internal Medicine: Result - Labs CBC & Chem 7: 12/17/17 05:45 12/17/17 05:45 Labs: Short CBC 12/17/17 Range/Units 05:45 WBC 13.0 H (4.3-11.1) K/mcL Hgb 13.6 (11.5-15.4) g/dL Hct 43.1 (35.3-44.9) % Plt Count 183 (140-400) K/mcL Neutrophils # 10.7 H (1.6-8.9) K/mcL BMP 12/17/17 05:45 Sodium 136 Potassium 4.2 Chloride 94 L Carbon Dioxide 38 H BUN 24 H Creatinine 0.80 Glucose 351 H Calcium 9.7 Liver Function 12/17/17 Range/Units 05:45 Total Bilirubin 0.2 L (0.3-1.0) mg/dL AST 7 L (13-39) Units/L ALT 10 (7-52) Units/L Alkaline Phosphatase 96 (34-104) Units/L Albumin 3.3 L (3.5-5.7) g/dL - ABG Interpretation ABG results: PT/INR, D-dimer PT 13.3 Seconds (9.4-12.1) H 12/15/17 08:42 D-Dimer 967 ng/mLFEU (0-500) H 12/15/17 08:42 - Attending Attestation I examined this patient and my medical decision-making was reviewed with the Resident Physician. I agree with the documented findings, disposition and treatment plan as described except to the extent set forth below. <Ashish Yan S - Last Filed: 12/17/17 10:38> (1) Sepsis Qualifiers: Sepsis type: sepsis due to unspecified organism Qualified Code(s): A41.9 - Sepsis, unspecified organism (3) Acute on chronic respiratory failure Qualifiers: Respiratory failure complication: unspecified whether with hypoxia or hypercapnia Qualified Code(s): J96.20 - Acute and chronic respiratory failure, unspecified whether with hypoxia or hypercapnia (4) Chest pain Qualifiers: Chest pain type: other chest pain Qualified Code(s): R07.89 - Other chest pain; R07.8 - Other chest pain (8) GERD (gastroesophageal reflux disease) Qualifiers: Esophagitis presence: esophagitis presence not specified Qualified Code(s): K21.9 - Gastro-esophageal reflux disease without esophagitis (9) Type 2 diabetes mellitus Qualifiers: Diabetes mellitus terminal superintendent insulin use: unspecified terminal superintendent insulin use status Diabetes mellitus complication status: with unspecified complications Qualified Code(s): E11.8 - Type 2 diabetes mellitus with unspecified complications (11) Hypertension Qualifiers: Hypertension type: essential hypertension Qualified Code(s): I10 - Essential (primary) hypertension (12) Hyperlipidemia Qualifiers: Hyperlipidemia type: unspecified Qualified Code(s): E78.5 - Hyperlipidemia, unspecified (14) Coronary artery disease Qualifiers: Coronary Disease-Associated Artery/Lesion type: unspecified vessel or lesion type [place] vs. transplanted heart: [place] heart Associated angina: with unstable angina Qualified Code(s): I25.110 - Atherosclerotic heart disease of [place] coronary artery with unstable angina pectoris (15) Constipation Qualifiers: Constipation type: chronic idiopathic constipation Qualified Code(s): K59.04 - Chronic idiopathic constipation <Tayler Dawson - Last Filed: 12/17/17 12:21> (1) Chest pain Qualifiers: Chest pain type: other chest pain Qualified Code(s): R07.89 - Other chest pain; R07.8 - Other chest pain (5) Sepsis Qualifiers: Sepsis type: sepsis due to unspecified organism Qualified Code(s): A41.9 - Sepsis, unspecified organism (6) Acute on chronic respiratory failure Qualifiers: Respiratory failure complication: unspecified whether with hypoxia or hypercapnia Qualified Code(s): J96.20 - Acute and chronic respiratory failure, unspecified whether with hypoxia or hypercapnia (8) GERD (gastroesophageal reflux disease) Qualifiers: Esophagitis presence: esophagitis presence not specified Qualified Code(s): K21.9 - Gastro-esophageal reflux disease without esophagitis (9) Type 2 diabetes mellitus Qualifiers: Diabetes mellitus terminal superintendent insulin use: unspecified skilled nursing insulin use status Diabetes mellitus complication status: with unspecified complications Qualified Code(s): E11.8 - Type 2 diabetes mellitus with unspecified complications (11) Hypertension Qualifiers: Hypertension type: essential hypertension Qualified Code(s): I10 - Essential (primary) hypertension (12) Hyperlipidemia Qualifiers: Hyperlipidemia type: unspecified Qualified Code(s): E78.5 - Hyperlipidemia, unspecified (14) Coronary artery disease Qualifiers: Coronary Disease-Associated Artery/Lesion type: unspecified vessel or lesion type [place] vs. transplanted heart: [place] heart Associated angina: with unstable angina Qualified Code(s): I25.110 - Atherosclerotic heart disease of [place] coronary artery with unstable angina pectoris (15) Constipation Qualifiers: Constipation type: chronic idiopathic constipation Qualified Code(s): K59.04 - Chronic idiopathic constipation
[2017-12-17] MEDS: Budesonide/Formoterol 160/4.5 1 PUFF INH IH SCH ×2 (09:50→22:26)
[2017-12-17] MEDS: predniSONE 20 MG TABLET PO SCH (09:56)
[2017-12-17] MEDS ORDERED: Insulin Regular, Human 100 UNIT/ML SQ ONE (12:17)
[2017-12-17] MEDS: cefTRIAXone 2,000 MG in Water for inj. (sterile) 20 ML 20 ML IVP SCH (14:29)
[2017-12-17] MEDS: Insulin DETEMIR 100 UNIT/ML X5UNITS SQ SCH (20:49)
[2017-12-18] MEDS: Ipratropium/Albuterol Neb 3 ML IH SCH ×2 (04:01→10:59)
[2017-12-18] MEDS: *HR* Heparin 5,000 UNIT/ML VIAL SQ SCH (04:59)
[2017-12-18 06:13] LABS: Basophils % 0.2 %; Eosinophils % 0.2 %; Hematocrit 43.4 % (35.3-44.9); Hemoglobin 13.7 g/dL (11.5-15.4); Immature Granulocytes % 0.5 % (0-4); Lymphocytes # 2.7 K/mcL (0.6-4.6); Lymphocytes % 26.5 %; Mean Corpuscular HGB Conc 31.6 g/dL (31.6-35.5); Mean Corpuscular Hemoglobin 28.4 pg (28.0-33.3); Mean Corpuscular Volume 89.9 fL (83.0-100.0); Mean Platelet Volume 11.1 fL (9.4-12.4); Monocytes # 0.6 K/mcL (0.0-1.3); Monocytes % 5.5 %; Neutrophils # 6.9 K/mcL (1.6-8.9); Platelet Count 177 K/mcL (140-400); Red Blood Count 4.83 M/mcL (3.82-4.97); Red Cell Distribution Width 15.3 % (11.5-14.5); Segmented Neutrophils % 67.1 %
[2017-12-18 06:34] LABS: BUN/Creatinine Ratio 39 (6-26); Blood Urea Nitrogen 23 mg/dL (6-20); Calcium 9.5 mg/dL (8.6-10.3); Carbon Dioxide 33 mEq/L (23-29); Chloride 94 mEq/L (98-107); Glucose 280 mg/dL (70-105); Osmolality,Calculated 292 (280-300); Potassium 3.6 mEq/L (3.5-5.1); Sodium 134 mEq/L (136-145); eGFR For Non-African Americans > 60 (> 60)
[2017-12-18 08:23] VITALS: BP 131/75
--- NOTE | 2017-12-18 08:35 | Internal Med Progress Note ---
Hospitalist Progress Note - Encounter Date of Encounter: 12/18/17 Time of Encounter: 08:33 - Subjective Interval History: Ms. Urbano is a 52 year old female [facility] multiple [place]'s, COPD, chronic bronchitis, HTN, HDL, T2DM, bipolar d/o, hx of stents x 4 last was 10 yrs ago, GERD, anixety/depression. She states that her symptoms started the day before she came to the hospital and they woke her up from sleep. She took a nitro and that resolved her pain and then five minutes later she began to vomit and become SOB. At baseline at she uses 2L of oxygen during the day and 5L at night. Yesterday she had to turn up her oxygen to 3.5 L. She had 10/10 crushing chest pain that felt similar to her previous [place]'s and there was radiation to her left arm/back. Her SOB has been worsening for the last few days. At baseline she is SOB with any activity and at at rest. The pt describes an increase in watery sputum but denies changes in color. In the ER , the pt is given a nitro drip. She has a d-dimer of 967; CT scan was negative for PE. Today the pt feels much better. CP has resolved. SOB improving. Still has some mucus production, ivory in color and hard to get to come up but is improving with Mucinex. She says she is back to her baseline. She has no n/v/d. No abd pain. At baseline oxygen use. - Exam Vitals: Temp Pulse Resp BP Pulse Ox 98.3 F 81 16 131/75 94 12/18/17 08:17 12/18/17 08:17 12/18/17 08:17 12/18/17 08:17 12/18/17 08:17 Exam: General - AOx3, slightly distressed, laying in bed HEENT - normocephalic, atraumatic, moist mucus membranes Cardio - tacycardic, s1s2, regular rhythm Lungs - decreased breath sounds bilaterally, air movement continues to improve, mild expiratory wheeze heard B/L Abd - nontender, nondistended, no rebound/guarding, obese Extremities - 1+ pitting edema Skin - no rash, no track cueva, no tattoos - Assessment and Plan (1) Sepsis Current Visit: Yes Status: Acute Assessment and Plan: Pt presented with increasing sputum productive, fevers/chills, chest pain On admission pt met SIRS criteria - HR 132, WBC 18.5 - (+) source most likely atypical infxn vs inflammatory process seen on CT Currently does NOT meet criteria for sepsis - WBC count 10 - HR 81 - afebrile - RR 16 - BP stable overnight CXR negative for acute cardiopulmonary process Lactic acid 3.9 on admission, 3.6 on repeat; last lactic acid 2.0 Legionella, s pneumo antigens negative Sputum cx showed normal upper resp tract hima, no pathogens isolates Plan: - most likely due to a bacterial pneumonia IV solumedrol q12hr d/c Start prednisone PO today 60mg DuoNebs q6hr scheduled - monitor CBC/CMP - blood cultures pending - mycoplasma IgM/IgG pending - procalcitonin pending - start Azithromycin 500mg PO daily and Rocephin 2g q24hr day 3 , plan to de- escalate today - Mucinex PO BID (2) Lung nodules Current Visit: Yes Status: Acute Assessment and Plan: On CT there were some small areas of nodularity and mild mediastinla LAD - may need close follow up after resolution of infxn for further workup (3) Acute on chronic respiratory failure Current Visit: Yes Status: Resolved Assessment and Plan: Pt usually requires 2L , requiring 4L on admission - O2 sat 93% on 4L on admission - most likely due to COPD exacerbation and underlying pneumonia - see plan as above for sepsis Currently the pt is back to baseline O2 use, on 2L currently (4) Chest pain Current Visit: Yes Status: Resolved Assessment and Plan: Resolved. Most likely due to underlying pneumonia causing pleuritic chest pain - may be unstable angina Pt has an extensive hx of cardiac problems, including multiple [place]'s and stents x 4 Troponin was <0.03 in the ER, repeat <0.03 too EKG showed sinus tacycardia, old anteroseptal [place] -normal sinus rhythm - normal axis - no ST elevation or depression ECHO showed LVEF 60% Plan: - continue home dose Lasix 80mg PO daily ---> d/c 12/17 - fluid restriction diet - cardiac/ada diet (5) COPD exacerbation Current Visit: Yes Status: Acute Assessment and Plan: Most likely due to underlying pneumonia - see plan as above for sepsis (6) Tobacco abuse Current Visit: No Status: Chronic Assessment and Plan: Smokes 1/2 ppd - offer nrt and counseling (7) Obesity (BMI 30.0-34.9) Current Visit: No Status: Chronic Assessment and Plan: BMI 33.9 - healthier lifestyle choices (8) GERD (gastroesophageal reflux disease) Current Visit: No Status: Chronic Assessment and Plan: On prilosec chronic continue home meds (9) Type 2 diabetes mellitus Current Visit: No Status: Chronic Assessment and Plan: Hx of T2DM - glucose was 233 on admission - glucose this morning 280 Plan: - HDSS - levemir 30U BID ---> increased to 35U - 5U extra levemir this morning (10) Anxiety and depression Current Visit: No Status: Chronic Assessment and Plan: On sertaline (11) Hypertension Current Visit: No Status: Chronic Assessment and Plan: BP 131/75 - controlled - on Lopressor (12) Hyperlipidemia Current Visit: No Status: Chronic Assessment and Plan: On lipitor - chronic (13) DVT prophylaxis Current Visit: Yes Status: Acute Assessment and Plan: SQ heparin (14) Coronary artery disease Current Visit: Yes Status: Acute Assessment and Plan: Hx of multiple [place]'s and stents x4 Plan: - continue aspirin, brillineta, lipitor, lopressor - discontinue lasix (15) Constipation Current Visit: No Status: Chronic Assessment and Plan: Senna prn - Time Spent with Patient Total time spent is greater than 50% in coordination of care (as documented) at patient's floor/unit and/or counseling patient: less than 15 minutes Plan of Care Discussed with: patient Internal Medicine: Result - Labs CBC & Chem 7: 12/18/17 05:49 12/18/17 05:49 Labs: Short CBC 12/18/17 Range/Units 05:49 WBC 10.3 (4.3-11.1) K/mcL Hgb 13.7 (11.5-15.4) g/dL Hct 43.4 (35.3-44.9) % Plt Count 177 (140-400) K/mcL Neutrophils # 6.9 (1.6-8.9) K/mcL BMP 12/18/17 05:49 Sodium 134 L Potassium 3.6 Chloride 94 L Carbon Dioxide 33 H BUN 23 H Creatinine 0.59 L Glucose 280 H Calcium 9.5 - ABG Interpretation ABG results: PT/INR, D-dimer PT 13.3 Seconds (9.4-12.1) H 12/15/17 08:42 D-Dimer 967 ng/mLFEU (0-500) H 12/15/17 08:42 Consult Discharge Plan - Plan Referrals: Song Diaz DO [Primary Care Provider] - (Web-requested) (1) Sepsis Qualifiers: Sepsis type: sepsis due to unspecified organism Qualified Code(s): A41.9 - Sepsis, unspecified organism (3) Acute on chronic respiratory failure Qualifiers: Respiratory failure complication: unspecified whether with hypoxia or hypercapnia Qualified Code(s): J96.20 - Acute and chronic respiratory failure, unspecified whether with hypoxia or hypercapnia (4) Chest pain Qualifiers: Chest pain type: other chest pain Qualified Code(s): R07.89 - Other chest pain; R07.8 - Other chest pain (8) GERD (gastroesophageal reflux disease) Qualifiers: Esophagitis presence: esophagitis presence not specified Qualified Code(s): K21.9 - Gastro-esophageal reflux disease without esophagitis (9) Type 2 diabetes mellitus Qualifiers: Diabetes mellitus terminal clerk insulin use: unspecified terminal clerk insulin use status Diabetes mellitus complication status: with unspecified complications Qualified Code(s): E11.8 - Type 2 diabetes mellitus with unspecified complications (11) Hypertension Qualifiers: Hypertension type: essential hypertension Qualified Code(s): I10 - Essential (primary) hypertension (12) Hyperlipidemia Qualifiers: Hyperlipidemia type: unspecified Qualified Code(s): E78.5 - Hyperlipidemia, unspecified (14) Coronary artery disease Qualifiers: Coronary Disease-Associated Artery/Lesion type: unspecified vessel or lesion type [place] vs. transplanted heart: [place] heart Associated angina: with unstable angina Qualified Code(s): I25.110 - Atherosclerotic heart disease of [place] coronary artery with unstable angina pectoris (15) Constipation Qualifiers: Constipation type: chronic idiopathic constipation Qualified Code(s): K59.04 - Chronic idiopathic constipation
[2017-12-18] MEDS ORDERED: Insulin DETEMIR 100 UNIT/ML X5UNITS SQ ONE (08:37)
--- NOTE | 2017-12-18 09:37 | Discharge Summary ---
<Ashish Yan S - Last Filed: 12/18/17 09:35> - NOTES TO OUTPATIENT PROVIDER Notes to Outpatient Provider: Follow up for resolution of s/s and breathing status. Make sure abx course completed. Follow lung nodules, may need pulmonology referral. Orders not resulted at time of discharge: Pending orders 12/15/17 10:16 Culture,Blood [BC] Stat 12/15/17 14:40 Mycoplasma pneumoniae IgG IgM Routine 12/19/17 04:00 CMP [Comprehensive Metabolic Panel] AM 0400 Complete Blood Count [HEME] AM 0400 Date of Encounter: 12/18/17 Time of Encounter: 09:36 - Discharge Diagnosis (1) Sepsis Priority: Primary Status: Acute Qualifiers: Sepsis type: sepsis due to unspecified organism Qualified Code(s): A41.9 - Sepsis, unspecified organism (2) Lung nodules Priority: Secondary Status: Acute (3) Acute on chronic respiratory failure Priority: Secondary Status: Resolved Qualifiers: Respiratory failure complication: unspecified whether with hypoxia or hypercapnia Qualified Code(s): J96.20 - Acute and chronic respiratory failure, unspecified whether with hypoxia or hypercapnia (4) Chest pain Priority: Secondary Status: Resolved Qualifiers: Chest pain type: other chest pain Qualified Code(s): R07.89 - Other chest pain; R07.8 - Other chest pain (5) COPD exacerbation Priority: Primary Status: Acute (6) Tobacco abuse Priority: Secondary Status: Chronic (7) Obesity (BMI 30.0-34.9) Priority: Secondary Status: Chronic (8) GERD (gastroesophageal reflux disease) Priority: Secondary Status: Chronic Qualifiers: Esophagitis presence: esophagitis presence not specified Qualified Code(s): K21.9 - Gastro-esophageal reflux disease without esophagitis (9) Type 2 diabetes mellitus Priority: Secondary Status: Chronic Qualifiers: Diabetes mellitus [employer] worker insulin use: unspecified [place] [facility] insulin use status Diabetes mellitus complication status: with unspecified complications Qualified Code(s): E11.8 - Type 2 diabetes mellitus with unspecified complications (10) Anxiety and depression Priority: Secondary Status: Chronic (11) Hypertension Priority: Secondary Status: Chronic Qualifiers: Hypertension type: essential hypertension Qualified Code(s): I10 - Essential (primary) hypertension (12) Hyperlipidemia Priority: Secondary Status: Chronic Qualifiers: Hyperlipidemia type: unspecified Qualified Code(s): E78.5 - Hyperlipidemia, unspecified (13) DVT prophylaxis Priority: Secondary Status: Acute (14) Coronary artery disease Priority: Secondary Status: Acute Qualifiers: Coronary Disease-Associated Artery/Lesion type: unspecified vessel or lesion type [place] vs. transplanted heart: [place] heart Associated angina: with unstable angina Qualified Code(s): I25.110 - Atherosclerotic heart disease of [place] coronary artery with unstable angina pectoris (15) Constipation Priority: Secondary Status: Chronic Qualifiers: Constipation type: chronic idiopathic constipation Qualified Code(s): K59.04 - Chronic idiopathic constipation Hospital course: Ms. Urbano is a 52 [address] [facility] multiple OK's, COPD, chronic bronchitis, HTN, HDL, T2DM, bipolar d/o, hx of stents x 4 last was 10 yrs ago, GERD, anixety/depression. She states that her symptoms started the day before she came to the hospital and they woke her up from sleep. She took a nitro and that resolved her pain and then five minutes later she began to vomit and become SOB. At baseline at she uses 2L of oxygen during the day and 5L at night. Yesterday she had to turn up her oxygen to 3.5 L. She had 10/10 crushing chest pain that felt similar to her previous OK's and there was radiation to her left arm/back. Her SOB has been worsening for the last few days. At baseline she is SOB with any activity and at at rest. The pt describes an increase in watery sputum but denies changes in color. In the ER , the pt is given a nitro drip. She has a d-dimer of 967; CT scan was negative for PE. The pt was treated x 3 days with azithromycin and rocephin - pt will be d/c with 2 more days of 500mg azithromycin - pt will be d/c with 7 days of omnicef BID - steroid taper as per instructions prescribed - will write prescription for nebulizer - Mucinex prescribed - all medications were sent to pt pharmacy Pt had lung nodules seen on CT - will benefit from pulmonology referral by PCP and follow up - small areas of nodularity and mild mediastinal LAD Today the pt feels much better. CP has resolved. SOB improving. Still has some mucus production, ivory in color and hard to get to come up but is improving with Mucinex. She says she is back to her baseline. She has no n/v/d. No abd pain. At baseline oxygen use. Pt is stable for d/c home Discharge discussed with: patient, nurse Time spent discussing smoking cessation with patient: 3 to 10 minutes - Time Spent with Patient Total time spent providing and/or coordinating discharge services: Less than 30 minutes - Discharge Medications Prescriptions: RX: Azithromycin [Zithromax] 500 mg PO DAILY 2 Days #2 tablet Cefdinir [Omnicef] 300 mg PO BID 7 Days #14 capsule Guaifenesin [Mucinex] 600 mg PO BID 30 Days #60 tab.er.12h RX: PredniSONE [Deltasone] 20 mg PO DAILY 9 Days #12 tablet RX: predniSONE [PredniSONE] 60 mg PO DAILY 2 Days #2 tablet Home Medications: RX: Aspirin [Adult Aspirin Regimen] 81 mg PO DAILY 12/15/17 [History] RX: Atorvastatin Calcium [Lipitor] 80 mg PO DAILY 12/15/17 [History] RX: Budesonide/Formoterol 160/4.5 [Symbicort 160/4.5] 2 puff PO BID 12/15/17 [History] RX: Cholecalciferol (D-3) [Vitamin D] 1,000 unit PO BID 12/15/17 [History] RX: Diclofenac Sodium [Voltaren] 1 appl TP QID PRN 12/15/17 [History] RX: Divalproex (24 HR) [Depakote ER (24 HR)] 250 mg PO BID 12/15/17 [History] RX: Ferrous Sulfate [Iron] 325 mg PO DAILY 12/15/17 [History] RX: Furosemide [Lasix] 80 mg PO DAILY PRN 12/15/17 [History] RX: Gabapentin [Neurontin] 800 mg PO TID 12/15/17 [History] RX: HYDROcodone/Acet 10/325 mg [[place] 10-325 mg] 0.5 tab PO BID 12/15/17 [History] RX: Insulin ASPART [Novolog Flexpen] 2 - 12 unit SQ TID 12/15/17 [History] RX: Insulin DETEMIR [Levemir Flextouch] 15 unit PO DAILY 12/15/17 [History] RX: Ipratropium/Albuterol Sulfate [Combivent Respimat 20-100 Mcg] 1 puff IH QID 12/15/17 [History] RX: Liraglutide [Victoza 3-Venkat] 1.8 mg SQ DAILY 12/15/17 [History] RX: Loratadine [Allergy Relief] 10 mg PO DAILY 12/15/17 [History] RX: Magnesium Oxide [Magnesium] 400 mg PO DAILY 12/15/17 [History] RX: Metformin HCl 1,000 mg PO BID 12/15/17 [History] RX: Metoprolol [Lopressor] 25 mg PO BID 12/15/17 [History] RX: Montelukast [Singulair] 10 mg PO DAILY 12/15/17 [History] RX: Nitroglycerin [Nitrostat] 1 tab SL AD 12/15/17 [History] RX: Omeprazole [PriLOSEC] 40 mg PO DAILY 12/15/17 [History] RX: Oxygen 2 - 5 l IH DAILY 12/15/17 [History] RX: Potassium Chloride [K-Tab ER] 20 meq PO DAILY 12/15/17 [History] RX: Sertraline [Zoloft] 100 mg PO DAILY 12/15/17 [History] RX: Ticagrelor [Brilinta] 90 mg PO BID 12/15/17 [History] RX: Tiotropium [Spiriva] 1 puff IH DAILY 12/15/17 [History] Cefdinir [Omnicef] 300 mg PO BID 7 Days #14 capsule 12/18/17 [Rx] Guaifenesin [Mucinex] 600 mg PO BID 30 Days #60 tab.er.12h 12/18/17 [Rx] RX: Azithromycin [Zithromax] 500 mg PO DAILY 2 Days #2 tablet 12/18/17 [Rx] RX: PredniSONE [Deltasone] 20 mg PO DAILY 9 Days #12 tablet 12/18/17 [Rx] RX: predniSONE [PredniSONE] 60 mg PO DAILY 2 Days #2 tablet 12/18/17 [Rx] Allergies/Adverse Reactions: Allergy/AdvReac Type Severity Reaction Status Date / Time No Known Allergies Allergy Verified 12/15/17 08:42 Date of admission: 12/15/17 13:28 Primary care physician: Song Diaz DO Discharging clinician: Ashish Yan Anticipated date of discharge: 12/18/17 - Constitutional Vitals: Temp Pulse Resp BP Pulse Ox 98.3 F 81 16 131/75 94 12/18/17 08:17 12/18/17 08:17 12/18/17 08:17 12/18/17 08:17 12/18/17 08:17 Exam: General - AOx3, slightly distressed, laying in bed HEENT - normocephalic, atraumatic, moist mucus membranes Cardio - tacycardic, s1s2, regular rhythm Lungs - decreased breath sounds bilaterally, air movement continues to improve, mild expiratory wheeze heard B/L Abd - nontender, nondistended, no rebound/guarding, obese Extremities - 1+ pitting edema Skin - no rash, no track cueva, no tattoos - Patient Status Disposition: Home, Self-Care Condition: Fair Functional capacity at discharge: independent ambulation Overall status at discharge: patient is progressing back to baseline - Discharge Instructions Instructions: Prednisone (By mouth), Guaifenesin (By mouth), Azithromycin (By mouth), Cefdinir (By mouth) Follow Up With: Song Diaz DO [Primary Care Provider] - (Web-request completed) - Diet and Activity Activity: increase activity as tolerated Diet: diabetic diet, low fat, low cholesterol <Tayler Dawson - Last Filed: 12/18/17 21:01> Orders not resulted at time of discharge: Pending orders 12/15/17 10:16 Culture,Blood [BC] Stat 12/15/17 14:40 Mycoplasma pneumoniae IgG IgM Routine - Discharge Diagnosis (1) Chest pain Status: Resolved Qualifiers: Chest pain type: other chest pain Qualified Code(s): R07.89 - Other chest pain; R07.8 - Other chest pain (2) COPD exacerbation Status: Acute (3) Lung nodules Status: Acute (4) Tobacco abuse Status: Chronic (5) Sepsis Status: Acute Qualifiers: Sepsis type: sepsis due to unspecified organism Qualified Code(s): A41.9 - Sepsis, unspecified organism (6) Acute on chronic respiratory failure Status: Resolved Qualifiers: Respiratory failure complication: unspecified whether with hypoxia or hypercapnia Qualified Code(s): J96.20 - Acute and chronic respiratory failure, unspecified whether with hypoxia or hypercapnia (7) Obesity (BMI 30.0-34.9) Status: Chronic (8) GERD (gastroesophageal reflux disease) Status: Chronic Qualifiers: Esophagitis presence: esophagitis presence not specified Qualified Code(s): K21.9 - Gastro-esophageal reflux disease without esophagitis (9) Type 2 diabetes mellitus Status: Chronic Qualifiers: Diabetes mellitus [employer] worker insulin use: unspecified [facility] insulin use status Diabetes mellitus complication status: with unspecified complications Qualified Code(s): E11.8 - Type 2 diabetes mellitus with unspecified complications (10) Anxiety and depression Status: Chronic (11) Hypertension Status: Chronic Qualifiers: Hypertension type: essential hypertension Qualified Code(s): I10 - Essential (primary) hypertension (12) Hyperlipidemia Status: Chronic Qualifiers: Hyperlipidemia type: unspecified Qualified Code(s): E78.5 - Hyperlipidemia, unspecified (13) DVT prophylaxis Status: Acute (14) Coronary artery disease Status: Acute Qualifiers: Coronary Disease-Associated Artery/Lesion type: unspecified vessel or lesion type [place] vs. transplanted heart: [place] heart Associated angina: with unstable angina Qualified Code(s): I25.110 - Atherosclerotic heart disease of [place] coronary artery with unstable angina pectoris (15) Constipation Status: Chronic Qualifiers: Constipation type: chronic idiopathic constipation Qualified Code(s): K59.04 - Chronic idiopathic constipation Hospital course: Ms. Urbano is a 52 year old female - Time Spent with Patient Total time spent providing and/or coordinating discharge services: Date of admission: 12/15/17 13:28 Primary care physician: Song Diaz DO - Constitutional Vitals: Temp Pulse Resp BP Pulse Ox 98.3 F 81 16 131/75 95 12/18/17 08:17 12/18/17 08:17 12/18/17 10:59 12/18/17 08:17 12/18/17 10:59 - Attending Attestation I examined this patient and my medical decision-making was reviewed with the Resident Physician. I agree with the documented findings, disposition and treatment plan as described except to the extent set forth below.
[2017-12-18] MEDS: Insulin LISPRO 300 UNITS/3 ML VIAL SQ SCH ×2 (09:54→12:28)
[2017-12-18] MEDS: Budesonide/Formoterol 160/4.5 1 PUFF INH IH SCH (10:59)
[2017-12-18] MEDS: Gabapentin 400 MG CAPSULE PO SCH (11:29)
[2017-12-18] MEDS: Magnesium Oxide 400 MG TABLET PO SCH (11:30)
[2017-12-18] MEDS: Aspirin Enteric Coated 81 MG Tablet PO SCH (11:30)
[2017-12-18] MEDS: *HR* HYDROcodone/Acet 5/325 mg TABLET PO SCH (11:31)
[2017-12-18] MEDS: *HR* Ticagrelor 90 MG TABLET PO SCH (11:31)
[2017-12-18] MEDS: Divalproex (24 HR) 250 MG TABLET PO SCH (11:31)
[2017-12-18] MEDS: Loratadine 10 MG TABLET PO SCH (11:31)
[2017-12-18] MEDS: Azithromycin 250 MG TABLET PO SCH (11:32)
[2017-12-18] MEDS: predniSONE 20 MG TABLET PO SCH (11:34)
[2017-12-18] MEDS ORDERED: Insulin DETEMIR 100 UNIT/ML X5UNITS SQ SCH (21:00)
[2017-12-19 14:57] LABS: Mycoplasma pneumoniae IgG 0.09 U/L (<=0.09)
== END 2017-12-18 14:33 | disposition home or self-care (01) | DRG 871 ==
LOC: EMEROOARM 08:28 → SUATTDRO 13:28 → 2ANU 13:28
PROVIDERS: ADMIT Internal Medicine Nephrology; ATTEND Student in an Organized Health Care Education/Training Program

== ENCOUNTER 2020-03-31 20:37 | Inpatient (IN) ==
[2020-03-31] MEDS ORDERED: Isovue-370 500 ML BOTTLE IVP ONE (21:01)
[2020-03-31 21:43] LABS: Basophils % 0.5 %; Eosinophils # 0.1 K/mcL (0.0-0.6); Eosinophils % 0.9 %; Hematocrit 40.8 % (35.3-44.9); Hemoglobin 10.8 g/dL (11.5-15.4); Immature Granulocytes % 1.5 % (0-4); Lymphocytes # 1.7 K/mcL (0.6-4.6); Lymphocytes % 19.8 %; Mean Corpuscular HGB Conc 26.5 g/dL (31.6-35.5); Mean Corpuscular Hemoglobin 24.5 pg (28.0-33.3); Mean Corpuscular Volume 92.7 fL (83.0-100.0); Mean Platelet Volume 10.6 fL (9.4-12.4); Monocytes % 11.9 %; Neutrophils # 5.6 K/mcL (1.6-8.9); Nucleated Red Blood Cells 1.1 /100 WBC (0); Platelet Count 246 K/mcL (140-400); Segmented Neutrophils % 65.4 %; White Blood Count 8.5 K/mcL (4.3-11.1)
[2020-03-31 21:49] LABS: Amphetamine Screen,Urine Negative ng/mL (Cutoff=1000); Barbiturate Screen,Urine Negative ng/mL (Cutoff=200); Benzodiazepines Screen,Urine Negative ng/mL (Cutoff=200); Cannabinoid Screen,Urine Negative ng/mL (Cutoff = 50); Cocaine Screen,Urine Negative ng/mL (Cutoff= 300); Opiate Screen,Urine Positive ng/mL (Cutoff=300); Phencyclidine Screen,Urine Negative ng/mL (Cutoff=25)
[2020-03-31 22:06] LABS: INR 1.4; Prothrombin Time 15.7 Seconds (9.4-12.1)
[2020-03-31 22:07] LABS: Alanine Aminotransferase 46 Units/L (7-52); Albumin 2.7 g/dL (3.5-5.7); Albumin/Globulin Ratio 0.6 (1.1-2.2); Alkaline Phosphatase 188 Units/L (34-104); Aspartate Amino Transferase 214 Units/L (13-39); BUN/Creatinine Ratio 13 (6-26); Bilirubin,Direct 0.5 mg/dL (0.0-0.2); Bilirubin,Indirect 0.4 mg/dL (0.0-1.0); Bilirubin,Total 0.9 mg/dL (0.3-1.0); Blood Urea Nitrogen 31 mg/dL (6-20); Calcium 8.2 mg/dL (8.6-10.3); Carbon Dioxide 33 mEq/L (23-29); Chloride 93 mEq/L (98-107); Creatine Kinase 224 Units/L (30-223); Ethanol < 10 mg/dL (Less than 10); Globulin 4.4 g/dL (2.4-3.5); Glucose 60 mg/dL (70-105); Osmolality,Calculated 278 (280-300); Potassium 6.5 mEq/L (3.5-5.1); Sodium 132 mEq/L (136-145); Total Protein 7.1 g/dL (6.4-8.9); Troponin I < 0.03 ng/mL (< 0.04); eGFR For African Americans 25 (> 60); eGFR For Non-African Americans 20 (> 60)
[2020-03-31 22:14] LABS: Thyroid Stimulating Hormone 5.718 mcIU/mL (0.340-5.600)
[2020-03-31] MEDS ORDERED: *HR* Dextrose 50 % in Water (Vial) 50 ML VIAL IVP ONE (22:15)
[2020-03-31] MEDS ORDERED: Insulin Human Regular 5 UNIT in 0.9 % Sodium Chloride 10 ML IV ONE (22:16)
[2020-03-31 22:34] LABS: Anisocytosis 2+ (Not Present); Platelet Estimate Normal (Normal); Polychromasia 1+ (Not Present)
[2020-03-31 23:14] LABS: Bilirubin,Urine Negative (Negative); Blood,Urine Negative (Negative); Clarity,Urine Turbid (Clear); Color,Urine Dark-Yellow (Yellow); Glucose,Urine (UA) Normal (Normal); Ketones,Urine Negative (Negative); Leukocyte Esterase,Urine Negative (Negative); Nitrite,Urine Negative (Negative); PH,Urine 5.5 pH Units (5.0-8.0); Protein,Urine 100 mg/dL (Neg-Trace); Specific Gravity,Urine 1.025 (1.010-1.025)
[2020-03-31 23:17] LABS: Squamous Epithelial Cell,Urine Moderate per hpf (None-Few)
[2020-03-31 23:18] LABS: Amorphous Sediment,Urine Moderate per hpf (None-Few)
[2020-03-31 23:40] LABS: Adenovirus Not Detected (Not Detect); Bordetella Pertussis Not Detected (Not Detect); Chlamydophila pneumoniae Not Detected (Not Detect); Coronavirus 229E Not Detected (Not Detect); Coronavirus HKU1 Not Detected (Not Detect); Coronavirus NL63 Not Detected (Not Detect); Coronavirus OC43 Not Detected (Not Detect); Human Metapneumovirus Not Detected (Not Detect); Human Rhinovirus/Enterovirus Not Detected (Not Detect); Influenza A Subtype 2009 H1 Not Detected (Not Detect); Influenza B Not Detected (Not Detect); Mycoplasma pneumoniae Not Detected (Not Detect); Parainfluenza Virus 1 Not Detected (Not Detect); Parainfluenza Virus 2 Not Detected (Not Detect); Parainfluenza Virus 3 Not Detected (Not Detect); Parainfluenza Virus 4 Not Detected (Not Detect); Respiratory Syncytial Virus Not Detected (Not Detect); SARS-CoV-2 Not Detected (Not Detect)
[2020-04-01] MEDS ORDERED: Calcium Gluconate 1gm/50mL 1 GM/50 ML BAG IVPB ONE ×2 (00:09→05:34)
[2020-04-01] MEDS ORDERED: *HR* Etomidate 20 MG/10 ML AMPUL IVP ONE (00:37)
[2020-04-01] MEDS ORDERED: *HR* Rocuronium Bromide 50 MG/5 ML VIAL IVP ONE (00:37)
[2020-04-01] MEDS ORDERED: *HR* Propofol 200 MG/20 ML VIAL IVP ONE (00:37)
[2020-04-01 02:39] LABS: ABG Base Excess 6 mEq/L (-2 to 3); ABG HCO3 39 mEq/L (21-27); ABG Oxygen Saturation 77 % (95-98); ABG PCO2 100 mmHg (35-45); ABG PO2 55 mmHg (85-104); ABG TCO2 42 mEq/L (20-26)
[2020-04-01] MEDS ORDERED: Ondansetron 4 MG/2 ML VIAL IVP PRN ×2 (02:58→08:02)
[2020-04-01] MEDS ORDERED: Acetaminophen 325 MG TABLET PO PRN ×2 (02:58→08:02)
[2020-04-01] MEDS ORDERED: Naloxone 0.4 MG/ML INJ IVP PRN ×2 (02:58→08:02)
[2020-04-01] MEDS: Albuterol 2.5 MG/3 ML NEBULIZER IH ONE ×2 (03:01→05:26)
[2020-04-01] MEDS ORDERED: Dextrose Gel 15 GM/37.5 ML TUBE PO PRN ×4 (03:33→08:02)
[2020-04-01] MEDS ORDERED: D5% in Water 1,000 ML IVC PRN ×2 (03:33→08:02)
[2020-04-01] MEDS: *HR* Dextrose 50 % in Water (Vial) 50 ML VIAL IVP PRN ×2 (03:41→04:35)
[2020-04-01 03:42] LABS: ABG Base Excess 4 mEq/L (-2 to 3); ABG HCO3 36 mEq/L (21-27); ABG Oxygen Saturation 93 % (95-98); ABG PCO2 95 mmHg (35-45); ABG PH 7.19 pH Units (7.32-7.45); ABG PO2 87 mmHg (85-104); ABG TCO2 39 mEq/L (20-26); Blood Gas Modality AVAPS; Blood Gas VT 500 cc
[2020-04-01 04:35] LABS: Basophils % 0.6 %; Hemoglobin 10.7 g/dL (11.5-15.4); Red Cell Distribution Width 26.3 % (11.5-14.5)
[2020-04-01 04:36] LABS: INR 1.4; Prothrombin Time 15.9 Seconds (9.4-12.1)
[2020-04-01 04:37] LABS: Basophils # 0.1 K/mcL (0.0-0.2); Eosinophils # 0.2 K/mcL (0.0-0.6); Eosinophils % 1.9 %; Immature Granulocytes % 1.3 % (0-4); Lymphocytes # 1.6 K/mcL (0.6-4.6); Lymphocytes % 20.3 %; Mean Corpuscular HGB Conc 26.8 g/dL (31.6-35.5); Mean Corpuscular Hemoglobin 24.8 pg (28.0-33.3); Mean Corpuscular Volume 92.8 fL (83.0-100.0); Mean Platelet Volume 10.5 fL (9.4-12.4); Monocytes # 0.9 K/mcL (0.0-1.3); Monocytes % 12.1 %; Neutrophils # 4.9 K/mcL (1.6-8.9); Nucleated Red Blood Cells 0.9 /100 WBC (0); Platelet Count 223 K/mcL (140-400); Red Blood Count 4.31 M/mcL (3.82-4.97); Segmented Neutrophils % 63.8 %; White Blood Count 7.7 K/mcL (4.3-11.1)
[2020-04-01] MEDS ORDERED: Artificial Tears SOLN 15 ML BOTTLE BOTH EYES PRN ×2 (04:37→08:02)
[2020-04-01 04:42] LABS: Alanine Aminotransferase 51 Units/L (7-52); Albumin 2.6 g/dL (3.5-5.7); Albumin/Globulin Ratio 0.6 (1.1-2.2); Alkaline Phosphatase 181 Units/L (34-104); Aspartate Amino Transferase 228 Units/L (13-39); BUN/Creatinine Ratio 12 (6-26); Bilirubin,Total 0.8 mg/dL (0.3-1.0); Blood Urea Nitrogen 32 mg/dL (6-20); Calcium 8.1 mg/dL (8.6-10.3); Carbon Dioxide 35 mEq/L (23-29); Chloride 94 mEq/L (98-107); Globulin 4.1 g/dL (2.4-3.5); Glucose 65 mg/dL (70-105); Magnesium 1.8 mg/dL (1.6-2.6); Osmolality,Calculated 279 (280-300); Phosphorous 6.9 mg/dL (2.7-4.5); Potassium 6.1 mEq/L (3.5-5.1); Sodium 132 mEq/L (136-145); Total Protein 6.7 g/dL (6.4-8.9); Troponin I < 0.03 ng/mL (< 0.04); eGFR For African Americans 22 (> 60); eGFR For Non-African Americans 19 (> 60)
[2020-04-01] MEDS ORDERED: FentaNYL (PF) 1,000 MCG/100 ML IV.SOLN IVC SCH (04:45)
[2020-04-01] MEDS ORDERED: methylPREDNISolone 125 MG/2 ML VIAL IVP ONE (05:17)
[2020-04-01] MEDS ORDERED: Calcium Gluconate 1gm/50mL 1 GM/50 ML BAG IVPB PRN ×2 (05:30→08:02)
[2020-04-01 05:31] LABS: ABG Base Excess 4 mEq/L (-2 to 3); ABG HCO3 36 mEq/L (21-27); ABG Oxygen Saturation 91 % (95-98); ABG PCO2 87 mmHg (35-45); ABG PH 7.22 pH Units (7.32-7.45); ABG PO2 76 mmHg (85-104); ABG TCO2 38 mEq/L (20-26); Blood Gas VT 430 cc
[2020-04-01 05:41] LABS: Anisocytosis 1+ (Not Present); Hypochromasia Present (Not Present); Macrocytosis Present (Not Present)
[2020-04-01 05:42] LABS: Platelet Estimate Normal (Normal); Target Cells 1+ (Not Present)
[2020-04-01] MEDS ORDERED: *HR* Heparin 5,000 UNIT/ML VIAL SQ SCH (06:00)
[2020-04-01] MEDS ORDERED: Pantoprazole 40 MG VIAL IVP SCH (06:30)
[2020-04-01] MEDS ORDERED: Artificial Tears SOLN 15 ML BOTTLE BOTH EYES SCH (08:00)
[2020-04-01] MEDS ORDERED: Azithromycin 500 MG in 0.9 % Sodium Chloride 250 ML IVPB SCH (08:00)
[2020-04-01] MEDS ORDERED: Isovue-370 500 ML BOTTLE IVP ONE (08:02)
[2020-04-01] MEDS ORDERED: *HR* Dextrose 50 % in Water (Vial) 50 ML VIAL IVP PRN (08:02)
[2020-04-01] MEDS: Albuterol 2.5 MG/3 ML NEBULIZER IH SCH ×5 (08:13→23:34)
[2020-04-01] MEDS: Chlorhexidine Rinse 15 ML MOUTHWASH MM SCH ×2 (08:30→20:43)
[2020-04-01] MEDS: Azithromycin 500 MG in 0.9 % Sodium Chloride 250 ML IVPB SCH (08:31)
[2020-04-01] MEDS: Artificial Tears SOLN 15 ML BOTTLE BOTH EYES SCH ×4 (08:31→20:42)
[2020-04-01] MEDS: Cefepime HCl 2,000 MG in 0.9 % Sodium Chloride Mini Bag 100 ML IVPB SCH ×2 (08:33→20:43)
[2020-04-01] MEDS ORDERED: *HR* Midazolam HCl 2 MG/2 ML VIAL IVP PRN (08:46)
[2020-04-01] MEDS ORDERED: Chlorhexidine Rinse 15 ML MOUTHWASH MM SCH (09:00)
[2020-04-01] MEDS: Albumin Human 5% 12.5 GM/250 ML IV.SOLN IVC SCH ×2 (09:20→09:45)
[2020-04-01] MEDS ORDERED: *HR* Midazolam HCl 2 MG/2 ML VIAL IVP ONE (10:06)
[2020-04-01] MEDS: Dexmedetomidine HCl 400 MCG/100 ML MLS IVC SCH ×2 (10:08→18:43)
[2020-04-01] MEDS: Norepinephrine 4 MG/254 ML IV.SOLN IVC SCH (11:20)
[2020-04-01] MEDS ORDERED: methylPREDNISolone 125 MG/2 ML VIAL IVP SCH ×2 (12:00)
[2020-04-01] MEDS ORDERED: Vancomycin 1,750 MG/517.5 ML IV.SOLN IVPB ONE (13:00)
[2020-04-01] MEDS ORDERED: Vancomycin 1,750 MG in 0.9 % Sodium Chloride 250 ML IVPB SCH (13:00)
[2020-04-01 15:26] LABS: Calcium 8.5 mg/dL (8.6-10.3); Potassium 6.2 mEq/L (3.5-5.1)
[2020-04-01] MEDS ORDERED: Cefepime HCl 2,000 MG in 0.9 % Sodium Chloride Mini Bag 100 ML IVPB SCH (18:00)
[2020-04-01] MEDS: *HR* Heparin 5,000 UNIT/ML VIAL SQ SCH (18:15)
[2020-04-01] MEDS: methylPREDNISolone 125 MG/2 ML VIAL IVP SCH (18:15)
[2020-04-01] MEDS: FentaNYL (PF) 1,000 MCG/100 ML IV.SOLN IVC SCH (18:16)
[2020-04-01 20:34] LABS: Calcium 8.2 mg/dL (8.6-10.3); Potassium 6.3 mEq/L (3.5-5.1)
[2020-04-02] MEDS: Artificial Tears SOLN 15 ML BOTTLE BOTH EYES SCH ×7 (00:24→23:49)
[2020-04-02] MEDS: Albuterol 2.5 MG/3 ML NEBULIZER IH SCH ×5 (03:32→19:59)
[2020-04-02 03:57] LABS: Immature Granulocytes % 0.6 % (0-4)
[2020-04-02 03:58] LABS: Hematocrit 37.1 % (35.3-44.9); Hemoglobin 10.3 g/dL (11.5-15.4); Lymphocytes # 0.3 K/mcL (0.6-4.6); Lymphocytes % 2.6 %; Mean Corpuscular HGB Conc 27.8 g/dL (31.6-35.5); Mean Corpuscular Hemoglobin 24.9 pg (28.0-33.3); Mean Corpuscular Volume 89.8 fL (83.0-100.0); Mean Platelet Volume 9.5 fL (9.4-12.4); Monocytes # 0.4 K/mcL (0.0-1.3); Monocytes % 3.8 %; Neutrophils # 10.4 K/mcL (1.6-8.9); Platelet Count 186 K/mcL (140-400); Red Blood Count 4.13 M/mcL (3.82-4.97); Red Cell Distribution Width 26.3 % (11.5-14.5); White Blood Count 11.2 K/mcL (4.3-11.1)
[2020-04-02 04:14] LABS: Albumin 2.6 g/dL (3.5-5.7); Albumin/Globulin Ratio 0.7 (1.1-2.2); Bilirubin,Total 0.9 mg/dL (0.3-1.0); Calcium 8.6 mg/dL (8.6-10.3); Globulin 3.6 g/dL (2.4-3.5); Potassium 6.2 mEq/L (3.5-5.1); Total Protein 6.2 g/dL (6.4-8.9)
[2020-04-02 04:23] LABS: Hypochromasia Present (Not Present)
[2020-04-02 04:24] LABS: Anisocytosis 3+ (Not Present); Macrocytosis Present (Not Present); Microcytosis Present (Not Present); Platelet Estimate Normal (Normal); Poikilocytosis 1+ (Not Present); Polychromasia 1+ (Not Present); Target Cells 1+ (Not Present)
[2020-04-02] MEDS: methylPREDNISolone 125 MG/2 ML VIAL IVP SCH ×2 (04:24→17:36)
[2020-04-02] MEDS: *HR* Heparin 5,000 UNIT/ML VIAL SQ SCH ×2 (04:24→17:36)
[2020-04-02 04:37] LABS: ABG Base Excess 4 mEq/L (-2 to 3); ABG HCO3 32 mEq/L (21-27); ABG Oxygen Saturation 96 % (95-98); ABG PCO2 66 mmHg (35-45); ABG PO2 95 mmHg (85-104); ABG TCO2 34 mEq/L (20-26); Blood Gas VT 450 cc
[2020-04-02] MEDS ORDERED: Vancomycin 1,250 MG/262.5 ML IV.SOLN IVPB ONE (06:00)
[2020-04-02] MEDS: Pantoprazole 40 MG VIAL IVP SCH (06:29)
[2020-04-02] MEDS: Azithromycin 500 MG in 0.9 % Sodium Chloride 250 ML IVPB SCH (07:47)
[2020-04-02] MEDS: Cefepime HCl 2,000 MG in 0.9 % Sodium Chloride Mini Bag 100 ML IVPB SCH ×2 (07:47→21:03)
[2020-04-02] MEDS: Chlorhexidine Rinse 15 ML MOUTHWASH MM SCH ×2 (07:48→19:50)
[2020-04-02] MEDS: FentaNYL (PF) 1,000 MCG/100 ML IV.SOLN IVC SCH (07:49)
[2020-04-02] MEDS ORDERED: Furosemide 40 MG/4 ML VIAL IVP ONE ×2 (08:18→21:00)
[2020-04-02] MEDS ORDERED: Perflutren Lipid Microsphere 1.3 ML in 0.9 % Sodium Chloride 8.7 ML IVP PRN (10:07)
[2020-04-02] MEDS: Norepinephrine 4 MG/254 ML IV.SOLN IVC SCH (11:45)
[2020-04-02] MEDS: Insulin LISPRO 300 UNITS/3 ML VIAL SUBQ SCH ×4 (13:14→23:49)
[2020-04-02 15:51] LABS: Calcium 8.5 mg/dL (8.6-10.3); Potassium 5.9 mEq/L (3.5-5.1)
[2020-04-02] MEDS: Dexmedetomidine HCl 400 MCG/100 ML MLS IVC SCH (21:02)
[2020-04-03] MEDS: Albuterol 2.5 MG/3 ML NEBULIZER IH SCH ×7 (00:05→22:30)
[2020-04-03 03:43] LABS: ABG Base Excess 8 mEq/L (-2 to 3); ABG HCO3 35 mEq/L (21-27); ABG Oxygen Saturation 95 % (95-98); ABG PCO2 65 mmHg (35-45); ABG PH 7.34 pH Units (7.32-7.45); ABG PO2 82 mmHg (85-104); ABG TCO2 37 mEq/L (20-26); Blood Gas Modality ASSIST CONTROL; Blood Gas VT 450 cc
[2020-04-03] MEDS: Insulin LISPRO 300 UNITS/3 ML VIAL SUBQ SCH ×5 (03:44→20:00)
[2020-04-03] MEDS: Artificial Tears SOLN 15 ML BOTTLE BOTH EYES SCH ×5 (03:45→20:30)
[2020-04-03 04:03] LABS: Hematocrit 34.7 % (35.3-44.9); Hemoglobin 10.1 g/dL (11.5-15.4); Immature Granulocytes % 0.4 % (0-4); Lymphocytes # 0.3 K/mcL (0.6-4.6); Lymphocytes % 2.8 %; Mean Corpuscular HGB Conc 29.1 g/dL (31.6-35.5); Mean Corpuscular Hemoglobin 25.3 pg (28.0-33.3); Mean Corpuscular Volume 86.8 fL (83.0-100.0); Mean Platelet Volume 9.7 fL (9.4-12.4); Monocytes # 0.5 K/mcL (0.0-1.3); Monocytes % 4.8 %; Neutrophils # 9.2 K/mcL (1.6-8.9); Nucleated Red Blood Cells 0.3 /100 WBC (0); Platelet Count 165 K/mcL (140-400); Red Cell Distribution Width 26.5 % (11.5-14.5)
[2020-04-03 04:23] LABS: Calcium 8.6 mg/dL (8.6-10.3); Magnesium 1.7 mg/dL (1.6-2.6); Phosphorous 4.3 mg/dL (2.7-4.5); Potassium 5.2 mEq/L (3.5-5.1)
[2020-04-03 04:30] LABS: Anisocytosis 2+ (Not Present); Hypochromasia Present (Not Present); Platelet Estimate Normal (Normal); Poikilocytosis 1+ (Not Present); Target Cells 1+ (Not Present)
[2020-04-03] MEDS: Dexmedetomidine HCl 400 MCG/100 ML MLS IVC SCH (04:30)
[2020-04-03] MEDS: *HR* Heparin 5,000 UNIT/ML VIAL SQ SCH ×2 (06:04→17:59)
[2020-04-03] MEDS: Pantoprazole 40 MG VIAL IVP SCH (06:04)
[2020-04-03] MEDS: methylPREDNISolone 125 MG/2 ML VIAL IVP SCH (06:04)
[2020-04-03] MEDS: Azithromycin 500 MG in 0.9 % Sodium Chloride 250 ML IVPB SCH (08:32)
[2020-04-03] MEDS: Chlorhexidine Rinse 15 ML MOUTHWASH MM SCH ×2 (08:32→19:54)
[2020-04-03] MEDS: Cefepime HCl 2,000 MG in 0.9 % Sodium Chloride Mini Bag 100 ML IVPB SCH ×2 (08:33→19:54)
[2020-04-03] MEDS: FentaNYL (PF) 1,000 MCG/100 ML IV.SOLN IVC SCH (08:33)
[2020-04-03] MEDS ORDERED: Furosemide 40 MG/4 ML VIAL IVP ONE ×2 (08:54→12:00)
[2020-04-03 10:54] LABS: ABG Base Excess 9 mEq/L (-2 to 3); ABG HCO3 39 mEq/L (21-27); ABG Oxygen Saturation 100 % (95-98); ABG PCO2 83 mmHg (35-45); ABG PH 7.28 pH Units (7.32-7.45); ABG PO2 433 mmHg (85-104); ABG TCO2 42 mEq/L (20-26); Blood Gas Modality BiLevel
[2020-04-03] MEDS: Norepinephrine 4 MG/254 ML IV.SOLN IVC SCH (10:58)
[2020-04-03 11:57] LABS: Albumin 2.5 g/dL (3.5-5.7); Albumin/Globulin Ratio 0.7 (1.1-2.2); Bilirubin,Direct 0.4 mg/dL (0.0-0.2); Bilirubin,Indirect 0.3 mg/dL (0.0-1.0); Bilirubin,Total 0.7 mg/dL (0.3-1.0); Globulin 3.5 g/dL (2.4-3.5)
[2020-04-04] MEDS: Insulin LISPRO 300 UNITS/3 ML VIAL SUBQ SCH ×6 (04:00→19:41)
[2020-04-04 04:05] LABS: Hematocrit 35.6 % (35.3-44.9); Nucleated Red Blood Cells 0.2 /100 WBC (0)
[2020-04-04 04:08] LABS: Immature Granulocytes % 0.8 % (0-4); Immature Platelets 3.8 % (1.1-6.1); Lymphocytes # 0.8 K/mcL (0.6-4.6); Mean Corpuscular HGB Conc 28.1 g/dL (31.6-35.5); Mean Corpuscular Hemoglobin 24.9 pg (28.0-33.3); Mean Corpuscular Volume 88.8 fL (83.0-100.0); Monocytes # 0.7 K/mcL (0.0-1.3); Monocytes % 5.1 %; Platelet Count 147 K/mcL (140-400); Red Blood Count 4.01 M/mcL (3.82-4.97); Red Cell Distribution Width 26.8 % (11.5-14.5); Segmented Neutrophils % 88.1 %; White Blood Count 13.1 K/mcL (4.3-11.1)
[2020-04-04] MEDS: Artificial Tears SOLN 15 ML BOTTLE BOTH EYES SCH ×3 (04:09→08:16)
[2020-04-04 04:13] LABS: Neutrophils # 11.5 K/mcL (1.6-8.9)
[2020-04-04] MEDS: Albuterol 2.5 MG/3 ML NEBULIZER IH SCH ×5 (04:14→19:36)
[2020-04-04 04:26] LABS: BUN/Creatinine Ratio 37 (6-26); Blood Urea Nitrogen 35 mg/dL (6-20); Calcium 9.1 mg/dL (8.6-10.3); Carbon Dioxide 34 mEq/L (23-29); Chloride 99 mEq/L (98-107); Glucose 124 mg/dL (70-105); Magnesium 1.6 mg/dL (1.6-2.6); Osmolality,Calculated 297 (280-300); Phosphorous 3.1 mg/dL (2.7-4.5); Potassium 4.5 mEq/L (3.5-5.1); Sodium 139 mEq/L (136-145); eGFR For African Americans > 60 (> 60); eGFR For Non-African Americans > 60 (> 60)
[2020-04-04 04:51] LABS: Anisocytosis 3+ (Not Present); Hypochromasia Present (Not Present); Platelet Estimate Normal (Normal); Poikilocytosis 1+ (Not Present); Target Cells 1+ (Not Present)
[2020-04-04] MEDS: Pantoprazole 40 MG VIAL IVP SCH (05:36)
[2020-04-04] MEDS: *HR* Heparin 5,000 UNIT/ML VIAL SQ SCH ×2 (05:37→17:16)
[2020-04-04] MEDS: Cefepime HCl 2,000 MG in 0.9 % Sodium Chloride Mini Bag 100 ML IVPB SCH ×2 (07:58→19:40)
[2020-04-04] MEDS: Chlorhexidine Rinse 15 ML MOUTHWASH MM SCH (07:58)
[2020-04-04] MEDS: Azithromycin 500 MG in 0.9 % Sodium Chloride 250 ML IVPB SCH (07:59)
[2020-04-04] MEDS: MethylPREDNISolone 40 MG/ML VIAL IVP SCH (07:59)
[2020-04-04] MEDS: Dexmedetomidine HCl 400 MCG/100 ML MLS IVC SCH (08:01)
[2020-04-04] MEDS: FentaNYL (PF) 1,000 MCG/100 ML IV.SOLN IVC SCH (08:01)
[2020-04-04] MEDS ORDERED: Vancomycin 1,500 MG/265 ML IV.SOLN IVPB ONE (09:00)
[2020-04-04] MEDS ORDERED: *HR* Metoprolol 5 MG/5 ML VIAL IVP PRN (09:21)
[2020-04-04] MEDS ORDERED: *HR* Metoprolol 5 MG/5 ML VIAL IVP ONE (09:22)
[2020-04-04] MEDS: *HR* HYDROcodone/Acet 10/325 mg TABLET PO PRN ×3 (10:36→21:54)
[2020-04-04] MEDS: Aspirin Enteric Coated 81 MG Tablet PO SCH (10:43)
[2020-04-04] MEDS: rOPINIRole 1 MG TABLET PO SCH ×3 (10:43→19:39)
[2020-04-04] MEDS: Divalproex (12 HR) 500 MG TABLET PO SCH ×2 (10:44→19:39)
[2020-04-04] MEDS: Norepinephrine 4 MG/254 ML IV.SOLN IVC SCH (10:44)
[2020-04-04] MEDS ORDERED: Furosemide 40 MG/4 ML VIAL IVP ONE (11:30)
[2020-04-04] MEDS: Budesonide/Formoterol 160/4.5 1 PUFF INH IH SCH ×2 (11:39→19:36)
[2020-04-04] MEDS: Magnesium Oxide 400 MG TABLET PO SCH (13:09)
[2020-04-05] MEDS: Albuterol 2.5 MG/3 ML NEBULIZER IH SCH ×4 (00:05→11:07)
[2020-04-05] MEDS: Dexmedetomidine HCl 400 MCG/100 ML MLS IVC SCH (00:22)
[2020-04-05] MEDS: Insulin LISPRO 300 UNITS/3 ML VIAL SUBQ SCH ×6 (00:23→21:08)
[2020-04-05 06:15] LABS: Basophils % 0.2 %; Eosinophils % 0.1 %; Nucleated Red Blood Cells 0.2 /100 WBC (0); Red Blood Count 3.99 M/mcL (3.82-4.97); Red Cell Distribution Width 26.5 % (11.5-14.5)
[2020-04-05 06:17] LABS: Hematocrit 35.8 % (35.3-44.9); Hemoglobin 9.9 g/dL (11.5-15.4); Immature Granulocytes % 0.6 % (0-4); Lymphocytes # 1.9 K/mcL (0.6-4.6); Lymphocytes % 16.4 %; Mean Corpuscular HGB Conc 27.7 g/dL (31.6-35.5); Mean Corpuscular Hemoglobin 24.8 pg (28.0-33.3); Mean Corpuscular Volume 89.7 fL (83.0-100.0); Mean Platelet Volume 9.7 fL (9.4-12.4); Monocytes # 0.8 K/mcL (0.0-1.3); Monocytes % 6.8 %; Neutrophils # 8.7 K/mcL (1.6-8.9); Platelet Count 123 K/mcL (140-400); Segmented Neutrophils % 75.9 %; White Blood Count 11.4 K/mcL (4.3-11.1)
[2020-04-05] MEDS: *HR* Heparin 5,000 UNIT/ML VIAL SQ SCH ×2 (06:18→16:43)
[2020-04-05 06:33] LABS: BUN/Creatinine Ratio 40 (6-26); Blood Urea Nitrogen 34 mg/dL (6-20); Calcium 9.1 mg/dL (8.6-10.3); Carbon Dioxide 39 mEq/L (23-29); Chloride 100 mEq/L (98-107); Glucose 137 mg/dL (70-105); Magnesium 1.9 mg/dL (1.6-2.6); Osmolality,Calculated 296 (280-300); Phosphorous 2.9 mg/dL (2.7-4.5); Potassium 4.3 mEq/L (3.5-5.1); Sodium 138 mEq/L (136-145); eGFR For African Americans > 60 (> 60); eGFR For Non-African Americans > 60 (> 60)
[2020-04-05 06:41] LABS: Anisocytosis 1+ (Not Present); Hypochromasia Present (Not Present); Platelet Estimate Slight Decrease (Normal); Poikilocytosis 1+ (Not Present)
[2020-04-05] MEDS: Budesonide/Formoterol 160/4.5 1 PUFF INH IH SCH ×2 (07:28→23:29)
[2020-04-05] MEDS: rOPINIRole 1 MG TABLET PO SCH ×3 (07:55→20:56)
[2020-04-05] MEDS: Magnesium Oxide 400 MG TABLET PO SCH (07:55)
[2020-04-05] MEDS: Divalproex (12 HR) 500 MG TABLET PO SCH ×2 (07:55→20:55)
[2020-04-05] MEDS: Aspirin Enteric Coated 81 MG Tablet PO SCH (07:56)
[2020-04-05] MEDS: MethylPREDNISolone 40 MG/ML VIAL IVP SCH (07:56)
[2020-04-05] MEDS: Azithromycin 500 MG in 0.9 % Sodium Chloride 250 ML IVPB SCH (07:56)
[2020-04-05] MEDS: Cefepime HCl 2,000 MG in 0.9 % Sodium Chloride Mini Bag 100 ML IVPB SCH (07:57)
[2020-04-05] MEDS ORDERED: Furosemide 40 MG TABLET PO SCH (09:00)
[2020-04-05] MEDS ORDERED: Vancomycin 1,500 MG/265 ML IV.SOLN IVPB ONE (11:00)
[2020-04-05] MEDS: *HR* HYDROcodone/Acet 10/325 mg TABLET PO PRN (12:31)
[2020-04-05] MEDS ORDERED: Ondansetron 4 MG/2 ML VIAL IVP PRN (14:20)
[2020-04-05] MEDS ORDERED: D5% in Water 1,000 ML IVC PRN (14:20)
[2020-04-05] MEDS ORDERED: Albuterol 2.5 MG/3 ML NEBULIZER IH PRN (14:20)
[2020-04-05] MEDS ORDERED: Dextrose Gel 15 GM/37.5 ML TUBE PO PRN ×2 (14:20)
[2020-04-05] MEDS ORDERED: Naloxone 0.4 MG/ML INJ IVP PRN (14:20)
[2020-04-05] MEDS ORDERED: *HR* Dextrose 50 % in Water (Vial) 50 ML VIAL IVP PRN (14:20)
[2020-04-05] MEDS: Furosemide 40 MG TABLET PO SCH (16:43)
[2020-04-05] MEDS: *HR* Metoprolol 5 MG/5 ML VIAL IVP PRN (17:09)
[2020-04-06 02:44] LABS: Basophils % 0.2 %; Eosinophils % 0.1 %; Nucleated Red Blood Cells 0.3 /100 WBC (0)
[2020-04-06 02:45] LABS: Hematocrit 39.4 % (35.3-44.9); Hemoglobin 10.9 g/dL (11.5-15.4); Immature Granulocytes % 0.7 % (0-4); Lymphocytes # 2.4 K/mcL (0.6-4.6); Lymphocytes % 19.9 %; Mean Corpuscular HGB Conc 27.7 g/dL (31.6-35.5); Mean Corpuscular Volume 90.4 fL (83.0-100.0); Mean Platelet Volume 9.9 fL (9.4-12.4); Neutrophils # 8.7 K/mcL (1.6-8.9); Platelet Count 147 K/mcL (140-400); Red Blood Count 4.36 M/mcL (3.82-4.97); Red Cell Distribution Width 26.3 % (11.5-14.5); Segmented Neutrophils % 71.1 %; White Blood Count 12.2 K/mcL (4.3-11.1)
[2020-04-06 02:53] LABS: BUN/Creatinine Ratio 39 (6-26); Blood Urea Nitrogen 32 mg/dL (6-20); Calcium 9.1 mg/dL (8.6-10.3); Carbon Dioxide 38 mEq/L (23-29); Chloride 100 mEq/L (98-107); Glucose 112 mg/dL (70-105); Magnesium 2.2 mg/dL (1.6-2.6); Osmolality,Calculated 296 (280-300); Phosphorous 3.2 mg/dL (2.7-4.5); Potassium 4.8 mEq/L (3.5-5.1); Sodium 139 mEq/L (136-145); eGFR For African Americans > 60 (> 60); eGFR For Non-African Americans > 60 (> 60)
[2020-04-06 03:00] LABS: Anisocytosis 3+ (Not Present); Hypochromasia Present (Not Present); Platelet Estimate Normal (Normal)
[2020-04-06 03:01] LABS: Poikilocytosis 1+ (Not Present); Stomatocytes 1+ (Not Present)
[2020-04-06] MEDS ORDERED: Furosemide 20 MG TABLET PO ONE (05:14)
[2020-04-06] MEDS: *HR* Heparin 5,000 UNIT/ML VIAL SQ SCH ×3 (05:28→18:49)
[2020-04-06] MEDS: *HR* Metoprolol 5 MG/5 ML VIAL IVP PRN (07:18)
[2020-04-06] MEDS: Magnesium Oxide 400 MG TABLET PO SCH (08:11)
[2020-04-06] MEDS: Divalproex (12 HR) 500 MG TABLET PO SCH ×2 (08:11→20:54)
[2020-04-06] MEDS: Aspirin Enteric Coated 81 MG Tablet PO SCH (08:11)
[2020-04-06] MEDS: rOPINIRole 1 MG TABLET PO SCH ×3 (08:11→20:55)
[2020-04-06] MEDS: predniSONE 20 MG TABLET PO SCH (08:11)
[2020-04-06] MEDS: Furosemide 40 MG TABLET PO SCH (08:12)
[2020-04-06] MEDS: Insulin LISPRO 300 UNITS/3 ML VIAL SUBQ SCH ×4 (08:34→20:55)
[2020-04-06] MEDS: Budesonide/Formoterol 160/4.5 1 PUFF INH IH SCH ×2 (10:08→22:28)
[2020-04-06] MEDS: Levalbuterol Neb 0.63 MG/3 ML IH SCH ×3 (10:08→22:28)
[2020-04-06] MEDS: DilTIAZem 50 MG/50 ML IV.SOLN IVC SCH ×2 (10:12→13:37)
[2020-04-06] MEDS ORDERED: *HR* Metoprolol 5 MG/5 ML VIAL IVP ONE (11:35)
[2020-04-06] MEDS: *HR* HYDROcodone/Acet 10/325 mg TABLET PO PRN (12:23)
[2020-04-06] MEDS: Albumin 25% 25gram/100mL 25 GM/100 ML IV.SOLN IVPB SCH ×2 (13:03→20:54)
[2020-04-06] MEDS: Furosemide 80 MG in 0.9 % Sodium Chloride 50 ML IVPB SCH ×2 (13:26→20:13)
[2020-04-06] MEDS ORDERED: Furosemide 80 MG in 0.9 % Sodium Chloride 50 ML IVPB SCH ×2 (15:00→21:00)
[2020-04-06] MEDS ORDERED: Amiodarone Premix 360 MG/200 ML BAG IVC ONE ×2 (17:22→18:30)
[2020-04-06] MEDS ORDERED: Amiodarone Premix 150 MG/100 ML BAG IVPB ONE ×2 (17:22→17:59)
[2020-04-07] MEDS ORDERED: Amiodarone Premix 360 MG/200 ML BAG IVC SCH
[2020-04-07] MEDS: Amiodarone Premix 360 MG/200 ML BAG IVC SCH ×2 (00:34→22:16)
[2020-04-07 03:23] LABS: BUN/Creatinine Ratio 46 (6-26); Blood Urea Nitrogen 40 mg/dL (6-20); Calcium 9.2 mg/dL (8.6-10.3); Carbon Dioxide 32 mEq/L (23-29); Chloride 100 mEq/L (98-107); Glucose 138 mg/dL (70-105); Osmolality,Calculated 302 (280-300); Sodium 140 mEq/L (136-145); eGFR For African Americans > 60 (> 60); eGFR For Non-African Americans > 60 (> 60)
[2020-04-07] MEDS: Levalbuterol Neb 0.63 MG/3 ML IH SCH ×4 (04:02→20:44)
[2020-04-07 05:26] LABS: Hematocrit 35.1 % (35.3-44.9); Hemoglobin 9.4 g/dL (11.5-15.4); Mean Corpuscular HGB Conc 26.8 g/dL (31.6-35.5); Mean Corpuscular Hemoglobin 24.4 pg (28.0-33.3); Mean Corpuscular Volume 90.9 fL (83.0-100.0); Mean Platelet Volume 10.2 fL (9.4-12.4); Platelet Count 130 K/mcL (140-400); Red Blood Count 3.86 M/mcL (3.82-4.97)
[2020-04-07] MEDS: *HR* Heparin 5,000 UNIT/ML VIAL SQ SCH ×2 (05:29→16:59)
[2020-04-07] MEDS: Albumin 25% 25gram/100mL 25 GM/100 ML IV.SOLN IVPB SCH ×3 (05:29→22:12)
[2020-04-07] MEDS: Insulin LISPRO 300 UNITS/3 ML VIAL SUBQ SCH ×4 (07:54→20:31)
[2020-04-07] MEDS: Divalproex (12 HR) 500 MG TABLET PO SCH ×2 (07:54→20:27)
[2020-04-07] MEDS: Magnesium Oxide 400 MG TABLET PO SCH (07:54)
[2020-04-07] MEDS: rOPINIRole 1 MG TABLET PO SCH ×3 (07:54→20:27)
[2020-04-07] MEDS: Aspirin Enteric Coated 81 MG Tablet PO SCH (07:54)
[2020-04-07] MEDS: predniSONE 20 MG TABLET PO SCH (07:54)
[2020-04-07] MEDS: Furosemide 80 MG in 0.9 % Sodium Chloride 50 ML IVPB SCH ×2 (07:57→21:13)
[2020-04-07] MEDS: *HR* HYDROcodone/Acet 10/325 mg TABLET PO PRN (08:10)
[2020-04-07] MEDS: Budesonide/Formoterol 160/4.5 1 PUFF INH IH SCH ×2 (10:00→20:40)
[2020-04-07] MEDS: Lactulose Oral Soln 20 GM/30 ML UDC PO SCH ×2 (11:02→11:13)
[2020-04-07] MEDS: MethylPREDNISolone 40 MG/ML VIAL IVP SCH ×2 (11:02→16:59)
[2020-04-07 11:35] LABS: VBG HCO3 34 mEq/L (21-27); VBG PCO2 55 mmHg (41-51); VBG PO2 199 mmHg (25-50)
[2020-04-07 12:29] LABS: Hepatitis B Surface Antigen Nonreactive (Nonreactive)
[2020-04-07 12:58] LABS: Hepatitis C Virus Antibody Nonreactive (Nonreactive)
[2020-04-07 12:59] LABS: Hepatitis B Core IgM Nonreactive (Nonreactive)
[2020-04-07 13:01] LABS: Hepatitis A Antibody IgM Nonreactive (Nonreactive)
[2020-04-07] MEDS: Gabapentin 400 MG CAPSULE PO SCH ×2 (15:19→20:27)
[2020-04-07] MEDS: metOLazone 5 MG TABLET PO SCH (20:27)
[2020-04-08] MEDS: Levalbuterol Neb 0.63 MG/3 ML IH SCH ×5 (03:50→21:53)
[2020-04-08] MEDS: Albumin 25% 25gram/100mL 25 GM/100 ML IV.SOLN IVPB SCH ×3 (05:39→22:04)
[2020-04-08] MEDS: *HR* Heparin 5,000 UNIT/ML VIAL SQ SCH ×2 (05:39→16:41)
[2020-04-08] MEDS: MethylPREDNISolone 40 MG/ML VIAL IVP SCH (05:40)
[2020-04-08 06:46] LABS: Hemoglobin 10.2 g/dL (11.5-15.4); Mean Corpuscular HGB Conc 26.8 g/dL (31.6-35.5); Mean Corpuscular Hemoglobin 24.9 pg (28.0-33.3); Mean Corpuscular Volume 92.9 fL (83.0-100.0); Platelet Count 131 K/mcL (140-400); Red Blood Count 4.09 M/mcL (3.82-4.97); Red Cell Distribution Width 26.3 % (11.5-14.5); White Blood Count 6.3 K/mcL (4.3-11.1)
[2020-04-08 06:53] LABS: BUN/Creatinine Ratio 41 (6-26); Blood Urea Nitrogen 41 mg/dL (6-20); Calcium 10.3 mg/dL (8.6-10.3); Carbon Dioxide 37 mEq/L (23-29); Chloride 96 mEq/L (98-107); Glucose 206 mg/dL (70-105); Osmolality,Calculated 304 (280-300); Sodium 139 mEq/L (136-145); eGFR For African Americans > 60 (> 60); eGFR For Non-African Americans 58 (> 60)
[2020-04-08] MEDS: rOPINIRole 1 MG TABLET PO SCH ×3 (07:37→22:03)
[2020-04-08] MEDS: Divalproex (12 HR) 500 MG TABLET PO SCH ×2 (07:37→22:03)
[2020-04-08] MEDS: Aspirin Enteric Coated 81 MG Tablet PO SCH (07:38)
[2020-04-08] MEDS: Gabapentin 400 MG CAPSULE PO SCH ×3 (07:38→22:03)
[2020-04-08] MEDS: Magnesium Oxide 400 MG TABLET PO SCH (07:38)
[2020-04-08] MEDS: metOLazone 5 MG TABLET PO SCH (07:38)
[2020-04-08] MEDS: Furosemide 80 MG in 0.9 % Sodium Chloride 50 ML IVPB SCH ×2 (07:39→20:07)
[2020-04-08] MEDS: Insulin LISPRO 300 UNITS/3 ML VIAL SUBQ SCH ×4 (07:39→22:05)
[2020-04-08] MEDS ORDERED: NON-FORMULARY MEDICATION 1 EACH EACH (Omeprazole [Prilosec] 40 MG) PO SCH (09:00)
[2020-04-08] MEDS: Budesonide/Formoterol 160/4.5 1 PUFF INH IH SCH ×2 (10:11→21:53)
[2020-04-08] MEDS: Amiodarone Premix 360 MG/200 ML BAG IVC SCH ×2 (10:26→22:04)
[2020-04-08 13:50] LABS: % Iron Saturation 13 % (15-50); Iron 34 mcg/dL (50-170); Transferrin 191 mg/dL (203-362)
[2020-04-08 14:08] LABS: Ferritin 64 ng/mL (10-120)
[2020-04-08] MEDS: *HR* Metoprolol 5 MG/5 ML VIAL IVP PRN (15:10)
[2020-04-09 01:46] LABS: Mean Corpuscular Volume 92.8 fL (83.0-100.0)
[2020-04-09 01:48] LABS: Hematocrit 30.9 % (35.3-44.9); Hemoglobin 8.3 g/dL (11.5-15.4); Immature Platelets 6.6 % (1.1-6.1); Mean Corpuscular HGB Conc 26.9 g/dL (31.6-35.5); Mean Corpuscular Hemoglobin 24.9 pg (28.0-33.3); Mean Platelet Volume 11.3 fL (9.4-12.4); Red Blood Count 3.33 M/mcL (3.82-4.97); Red Cell Distribution Width 26.1 % (11.5-14.5); White Blood Count 7.3 K/mcL (4.3-11.1)
[2020-04-09 02:00] LABS: BUN/Creatinine Ratio 48 (6-26); Blood Urea Nitrogen 44 mg/dL (6-20); Calcium 10.1 mg/dL (8.6-10.3); Carbon Dioxide 37 mEq/L (23-29); Chloride 96 mEq/L (98-107); Glucose 253 mg/dL (70-105); Osmolality,Calculated 310 (280-300); Potassium 4.1 mEq/L (3.5-5.1); Sodium 140 mEq/L (136-145); eGFR For African Americans > 60 (> 60); eGFR For Non-African Americans > 60 (> 60)
[2020-04-09] MEDS: Levalbuterol Neb 0.63 MG/3 ML IH SCH ×4 (03:58→21:40)
[2020-04-09] MEDS: *HR* Heparin 5,000 UNIT/ML VIAL SQ SCH ×2 (04:54→17:47)
[2020-04-09] MEDS: Albumin 25% 25gram/100mL 25 GM/100 ML IV.SOLN IVPB SCH ×2 (04:54→12:42)
[2020-04-09] MEDS: *HR* HYDROcodone/Acet 10/325 mg TABLET PO PRN (04:54)
[2020-04-09] MEDS: Aspirin Enteric Coated 81 MG Tablet PO SCH (07:20)
[2020-04-09] MEDS: rOPINIRole 1 MG TABLET PO SCH ×3 (07:20→20:44)
[2020-04-09] MEDS: Gabapentin 400 MG CAPSULE PO SCH ×3 (07:21→20:44)
[2020-04-09] MEDS: metOLazone 5 MG TABLET PO SCH (07:21)
[2020-04-09] MEDS: Divalproex (12 HR) 500 MG TABLET PO SCH ×2 (07:21→20:44)
[2020-04-09] MEDS: Magnesium Oxide 400 MG TABLET PO SCH (07:21)
[2020-04-09] MEDS: Acetaminophen 325 MG TABLET PO PRN (07:21)
[2020-04-09] MEDS: MethylPREDNISolone 40 MG/ML VIAL IVP SCH (07:27)
[2020-04-09] MEDS: Furosemide 80 MG in 0.9 % Sodium Chloride 50 ML IVPB SCH ×2 (07:33→20:41)
[2020-04-09] MEDS: Insulin LISPRO 300 UNITS/3 ML VIAL SUBQ SCH ×4 (07:34→20:43)
[2020-04-09] MEDS: Amiodarone Premix 360 MG/200 ML BAG IVC SCH (07:52)
[2020-04-09] MEDS ORDERED: Metoprolol XL (24 HR) Succ 25 MG TAB.ER.24H PO SCH (09:00)
[2020-04-09] MEDS: Budesonide/Formoterol 160/4.5 1 PUFF INH IH SCH ×2 (10:01→21:40)
[2020-04-09] MEDS ORDERED: *HR* Digoxin 0.5 MG/2 ML AMPUL IVP ONE (14:00)
[2020-04-09] MEDS: *HR* Digoxin 0.5 MG/2 ML AMPUL IVP SCH ×2 (17:47→23:45)
[2020-04-09] MEDS: Insulin DETEMIR 100 UNIT/ML X5UNITS SUBQ SCH (20:43)
[2020-04-09] MEDS: Metoprolol XL (24 HR) Succ 25 MG TAB.ER.24H PO SCH (20:44)
[2020-04-09] MEDS ORDERED: Albumin 25% 25gram/100mL 25 GM/100 ML IV.SOLN IVPB SCH (21:00)
[2020-04-10] MEDS: Levalbuterol Neb 0.63 MG/3 ML IH SCH ×4 (03:47→21:51)
[2020-04-10 04:58] LABS: VBG HCO3 42 mEq/L (21-27); VBG PCO2 86 mmHg (41-51); VBG PO2 212 mmHg (25-50)
[2020-04-10] MEDS: *HR* Heparin 5,000 UNIT/ML VIAL SQ SCH ×2 (05:05→17:42)
[2020-04-10 05:06] LABS: Alanine Aminotransferase 7 Units/L (7-52); Albumin 4.4 g/dL (3.5-5.7); Albumin/Globulin Ratio 1.8 (1.1-2.2); Alkaline Phosphatase 60 Units/L (34-104); Aspartate Amino Transferase 8 Units/L (13-39); BUN/Creatinine Ratio 42 (6-26); Bilirubin,Total 0.7 mg/dL (0.3-1.0); Blood Urea Nitrogen 44 mg/dL (6-20); Calcium 10.1 mg/dL (8.6-10.3); Carbon Dioxide 39 mEq/L (23-29); Chloride 97 mEq/L (98-107); Globulin 2.4 g/dL (2.4-3.5); Glucose 251 mg/dL (70-105); Osmolality,Calculated 310 (280-300); Potassium 4.5 mEq/L (3.5-5.1); Sodium 140 mEq/L (136-145); Total Protein 6.8 g/dL (6.4-8.9); eGFR For African Americans > 60 (> 60); eGFR For Non-African Americans 55 (> 60)
[2020-04-10 05:09] LABS: Basophils % 0.1 %; Mean Corpuscular Hemoglobin 25.1 pg (28.0-33.3)
[2020-04-10 05:11] LABS: Hematocrit 34.5 % (35.3-44.9); Immature Granulocytes % 2.2 % (0-4); Immature Platelets 6.9 % (1.1-6.1); Lymphocytes # 0.7 K/mcL (0.6-4.6); Lymphocytes % 10.5 %; Mean Corpuscular HGB Conc 26.1 g/dL (31.6-35.5); Mean Corpuscular Volume 96.1 fL (83.0-100.0); Mean Platelet Volume 11.4 fL (9.4-12.4); Monocytes # 0.9 K/mcL (0.0-1.3); Platelet Count 159 K/mcL (140-400); Red Blood Count 3.59 M/mcL (3.82-4.97); Red Cell Distribution Width 25.8 % (11.5-14.5); Segmented Neutrophils % 74.2 %; White Blood Count 6.9 K/mcL (4.3-11.1)
[2020-04-10 05:35] LABS: Neutrophils # 5.1 K/mcL (1.6-8.9)
[2020-04-10 06:09] LABS: Anisocytosis 2+ (Not Present)
[2020-04-10 06:10] LABS: Hypochromasia Present (Not Present); Macrocytosis Present (Not Present); Platelet Estimate Normal (Normal)
[2020-04-10 06:47] LABS: ANA IgG by ELISA NONE DETECTED (None Detected)
[2020-04-10] MEDS: Aspirin Enteric Coated 81 MG Tablet PO SCH (08:06)
[2020-04-10] MEDS: rOPINIRole 1 MG TABLET PO SCH ×2 (08:10→14:08)
[2020-04-10] MEDS: Gabapentin 400 MG CAPSULE PO SCH (08:11)
[2020-04-10] MEDS: MethylPREDNISolone 40 MG/ML VIAL IVP SCH (08:11)
[2020-04-10] MEDS: Magnesium Oxide 400 MG TABLET PO SCH (08:11)
[2020-04-10] MEDS: Metoprolol XL (24 HR) Succ 25 MG TAB.ER.24H PO SCH (08:11)
[2020-04-10] MEDS: Divalproex (12 HR) 500 MG TABLET PO SCH (08:11)
[2020-04-10] MEDS: metOLazone 5 MG TABLET PO SCH (08:11)
[2020-04-10] MEDS: Insulin LISPRO 300 UNITS/3 ML VIAL SUBQ SCH ×3 (08:12→17:41)
[2020-04-10] MEDS: Furosemide 40 MG/4 ML VIAL IVP SCH (09:08)
[2020-04-10] MEDS: Budesonide/Formoterol 160/4.5 1 PUFF INH IH SCH ×2 (11:22→21:52)
[2020-04-10] MEDS: Iron Sucrose Complex 250 MG in 0.9 % Sodium Chloride 250 ML IVPB SCH (13:28)
[2020-04-10] MEDS: Gabapentin 300 MG CAPSULE PO SCH (14:08)
[2020-04-10 20:11] LABS: ABG Base Excess 13 mEq/L (-2 to 3); ABG HCO3 46 mEq/L (21-27); ABG Oxygen Saturation 97 % (95-98); ABG PCO2 117 mmHg (35-45); ABG PH 7.21 pH Units (7.32-7.45); ABG PO2 123 mmHg (85-104); ABG TCO2 50 mEq/L (20-26)
[2020-04-10 22:05] LABS: ABG Base Excess 16 mEq/L (-2 to 3); ABG HCO3 49 mEq/L (21-27); ABG Oxygen Saturation 95 % (95-98); ABG PCO2 122 mmHg (35-45); ABG PH 7.21 pH Units (7.32-7.45); ABG PO2 101 mmHg (85-104); ABG TCO2 > 50 mEq/L (20-26); Blood Gas VT 500 cc
[2020-04-10 23:57] LABS: ABG Base Excess 13 mEq/L (-2 to 3); ABG HCO3 46 mEq/L (21-27); ABG Oxygen Saturation 91 % (95-98); ABG PCO2 110 mmHg (35-45); ABG PH 7.23 pH Units (7.32-7.45); ABG PO2 79 mmHg (85-104); ABG TCO2 49 mEq/L (20-26); Blood Gas Modality AVAPS
[2020-04-11] MEDS: Divalproex (12 HR) 500 MG TABLET PO SCH ×3 (00:35→19:57)
[2020-04-11] MEDS: Insulin LISPRO 300 UNITS/3 ML VIAL SUBQ SCH ×5 (00:37→23:35)
[2020-04-11] MEDS: Insulin DETEMIR 100 UNIT/ML X5UNITS SUBQ SCH ×2 (00:38→21:29)
[2020-04-11] MEDS: Furosemide 40 MG/4 ML VIAL IVP SCH ×3 (01:02→19:57)
[2020-04-11 05:19] LABS: ABG Base Excess 16 mEq/L (-2 to 3); ABG HCO3 48 mEq/L (21-27); ABG Oxygen Saturation 88 % (95-98); ABG PCO2 100 mmHg (35-45); ABG PH 7.29 pH Units (7.32-7.45); ABG PO2 67 mmHg (85-104); ABG TCO2 > 50 mEq/L (20-26); Blood Gas VT 550 cc
[2020-04-11] MEDS: rOPINIRole 1 MG TABLET PO SCH ×4 (06:13→19:57)
[2020-04-11] MEDS: Gabapentin 300 MG CAPSULE PO SCH (06:13)
[2020-04-11] MEDS: Metoprolol XL (24 HR) Succ 25 MG TAB.ER.24H PO SCH ×3 (06:14→19:57)
[2020-04-11] MEDS: *HR* Heparin 5,000 UNIT/ML VIAL SQ SCH ×2 (06:15→18:47)
[2020-04-11] MEDS: Budesonide/Formoterol 160/4.5 1 PUFF INH IH SCH ×2 (07:46→23:19)
[2020-04-11] MEDS ORDERED: acetaZOLAMIDE 250 MG in Water for inj. (sterile) 2.5 ML IVP ONE (07:48)
[2020-04-11] MEDS ORDERED: *HR* Midazolam HCl 5 MG/5 ML VIAL IVP ONE (09:52)
[2020-04-11] MEDS ORDERED: *HR* Rocuronium Bromide 50 MG/5 ML VIAL IVP ONE (09:52)
[2020-04-11] MEDS ORDERED: *HR* Etomidate 20 MG/10 ML AMPUL IVP ONE (09:52)
[2020-04-11 10:07] LABS: Serine Protease-3 Antibody 85 AU/mL (0-19)
[2020-04-11] MEDS: Aspirin Enteric Coated 81 MG Tablet PO SCH (10:41)
[2020-04-11] MEDS: metOLazone 5 MG TABLET PO SCH (10:43)
[2020-04-11] MEDS: Magnesium Oxide 400 MG TABLET PO SCH (10:43)
[2020-04-11] MEDS: MethylPREDNISolone 40 MG/ML VIAL IVP SCH (10:44)
[2020-04-11] MEDS: Iron Sucrose Complex 250 MG in 0.9 % Sodium Chloride 250 ML IVPB SCH (10:47)
[2020-04-11 11:02] LABS: Alanine Aminotransferase 5 Units/L (7-52); Albumin 4.1 g/dL (3.5-5.7); Albumin/Globulin Ratio 1.5 (1.1-2.2); Alkaline Phosphatase 80 Units/L (34-104); Aspartate Amino Transferase 13 Units/L (13-39); BUN/Creatinine Ratio 50 (6-26); Bilirubin,Total 0.8 mg/dL (0.3-1.0); Blood Urea Nitrogen 46 mg/dL (6-20); Calcium 10.7 mg/dL (8.6-10.3); Carbon Dioxide 38 mEq/L (23-29); Chloride 97 mEq/L (98-107); Globulin 2.8 g/dL (2.4-3.5); Glucose 237 mg/dL (70-105); Osmolality,Calculated 310 (280-300); Potassium 4.8 mEq/L (3.5-5.1); Sodium 140 mEq/L (136-145); Total Protein 6.9 g/dL (6.4-8.9); eGFR For African Americans > 60 (> 60); eGFR For Non-African Americans > 60 (> 60)
[2020-04-11 12:42] LABS: Basophils % 0.1 %; Mean Corpuscular HGB Conc 26.7 g/dL (31.6-35.5)
[2020-04-11 12:44] LABS: Eosinophils % 0.1 %; Hematocrit 38.2 % (35.3-44.9); Hemoglobin 10.2 g/dL (11.5-15.4); Immature Granulocytes % 0.9 % (0-4); Lymphocytes # 0.6 K/mcL (0.6-4.6); Lymphocytes % 4.5 %; Mean Corpuscular Hemoglobin 25.2 pg (28.0-33.3); Mean Corpuscular Volume 94.6 fL (83.0-100.0); Mean Platelet Volume 10.9 fL (9.4-12.4); Monocytes # 0.9 K/mcL (0.0-1.3); Monocytes % 6.8 %; Platelet Count 171 K/mcL (140-400); Red Blood Count 4.04 M/mcL (3.82-4.97); Red Cell Distribution Width 25.4 % (11.5-14.5); Segmented Neutrophils % 87.6 %; White Blood Count 13.7 K/mcL (4.3-11.1)
[2020-04-11 13:14] LABS: Anisocytosis 1+ (Not Present); Platelet Estimate Increased (Normal); Poikilocytosis 2+ (Not Present); Target Cells 1+ (Not Present)
[2020-04-11 13:15] LABS: Stomatocytes 3+ (Not Present)
[2020-04-11 17:34] LABS: ABG Base Excess 13 mEq/L (-2 to 3); ABG HCO3 48 mEq/L (21-27); ABG Oxygen Saturation 92 % (95-98); ABG PCO2 140 mmHg (35-45); ABG PH 7.14 pH Units (7.32-7.45); ABG PO2 89 mmHg (85-104); ABG TCO2 > 50 mEq/L (20-26); Blood Gas Modality avaps; Blood Gas VT 500 cc
[2020-04-11] MEDS ORDERED: Ipratropium/Albuterol Neb 3 ML ONE (17:46)
[2020-04-11] MEDS ORDERED: Ipratropium/Albuterol Neb 3 ML IH ONE (18:13)
[2020-04-11 18:30] LABS: ABG Base Excess 16 mEq/L (-2 to 3); ABG HCO3 46 mEq/L (21-27); ABG Oxygen Saturation 89 % (95-98); ABG PCO2 88 mmHg (35-45); ABG PH 7.32 pH Units (7.32-7.45); ABG PO2 66 mmHg (85-104); ABG TCO2 49 mEq/L (20-26); Blood Gas Modality ASSIST CONTROL; Blood Gas VT 450 cc
[2020-04-11] MEDS ORDERED: Albuterol 2.5 MG/3 ML NEBULIZER IH SCH (18:30)
[2020-04-11] MEDS: FentaNYL (PF) 1,000 MCG/100 ML IV.SOLN IVC SCH (19:00)
[2020-04-11] MEDS: Midazolam HCl 50 MG/100 ML IV.SOLN IVC SCH (19:01)
[2020-04-11] MEDS ORDERED: Artificial Tears SOLN 15 ML BOTTLE BOTH EYES PRN (20:48)
[2020-04-11] MEDS: Chlorhexidine Rinse 15 ML MOUTHWASH MM SCH (22:30)
[2020-04-11] MEDS: Ipratropium/Albuterol Neb 3 ML IH SCH (23:19)
[2020-04-11] MEDS: Artificial Tears SOLN 15 ML BOTTLE BOTH EYES SCH (23:34)
[2020-04-12] MEDS: FentaNYL (PF) 1,000 MCG/100 ML IV.SOLN IVC SCH ×3 (00:15→13:12)
[2020-04-12] MEDS: Ipratropium/Albuterol Neb 3 ML IH SCH ×6 (03:17→23:20)
[2020-04-12] MEDS: Artificial Tears SOLN 15 ML BOTTLE BOTH EYES SCH ×6 (03:30→23:13)
[2020-04-12 04:36] LABS: ABG Base Excess 19 mEq/L (-2 to 3); ABG HCO3 44 mEq/L (21-27); ABG Oxygen Saturation 93 % (95-98); ABG PCO2 51 mmHg (35-45); ABG PH 7.54 pH Units (7.32-7.45); ABG PO2 62 mmHg (85-104); ABG TCO2 45 mEq/L (20-26); Blood Gas VT 450 cc
[2020-04-12] MEDS: Midazolam HCl 50 MG/100 ML IV.SOLN IVC SCH (04:55)
[2020-04-12] MEDS: Insulin LISPRO 300 UNITS/3 ML VIAL SUBQ SCH ×4 (05:10→23:13)
[2020-04-12] MEDS: *HR* Heparin 5,000 UNIT/ML VIAL SQ SCH (05:10)
[2020-04-12] MEDS: Pantoprazole 40 MG VIAL IVP SCH (05:46)
[2020-04-12 06:01] LABS: Hematocrit 32.1 % (35.3-44.9); Mean Corpuscular Volume 93.3 fL (83.0-100.0); Red Blood Count 3.44 M/mcL (3.82-4.97)
[2020-04-12 06:02] LABS: Hemoglobin 8.6 g/dL (11.5-15.4); Mean Corpuscular HGB Conc 26.8 g/dL (31.6-35.5); Mean Platelet Volume 11.1 fL (9.4-12.4); Platelet Count 154 K/mcL (140-400); White Blood Count 11.6 K/mcL (4.3-11.1)
[2020-04-12 06:32] LABS: BUN/Creatinine Ratio 64 (6-26); Blood Urea Nitrogen 49 mg/dL (6-20); Calcium 10.6 mg/dL (8.6-10.3); Carbon Dioxide 40 mEq/L (23-29); Chloride 96 mEq/L (98-107); Glucose 205 mg/dL (70-105); Osmolality,Calculated 321 (280-300); Potassium 3.4 mEq/L (3.5-5.1); Sodium 146 mEq/L (136-145); eGFR For African Americans > 60 (> 60); eGFR For Non-African Americans > 60 (> 60)
[2020-04-12] MEDS: Budesonide/Formoterol 160/4.5 1 PUFF INH IH SCH ×2 (07:28→19:47)
[2020-04-12] MEDS: Furosemide 40 MG/4 ML VIAL IVP SCH ×2 (08:43→19:32)
[2020-04-12] MEDS: Magnesium Oxide 400 MG TABLET PO SCH (08:43)
[2020-04-12] MEDS: Chlorhexidine Rinse 15 ML MOUTHWASH MM SCH ×2 (08:43→19:31)
[2020-04-12] MEDS: rOPINIRole 1 MG TABLET PO SCH ×3 (08:43→19:31)
[2020-04-12] MEDS: Divalproex (12 HR) 500 MG TABLET PO SCH (08:44)
[2020-04-12] MEDS: Metoprolol XL (24 HR) Succ 25 MG TAB.ER.24H PO SCH (08:44)
[2020-04-12] MEDS: Aspirin Enteric Coated 81 MG Tablet PO SCH (08:44)
[2020-04-12] MEDS: metOLazone 5 MG TABLET PO SCH (08:50)
[2020-04-12] MEDS ORDERED: DilTIAZem CD (24hr) 180 MG CAP.ER.24H PO SCH (09:00)
[2020-04-12] MEDS: Iron Sucrose Complex 250 MG in 0.9 % Sodium Chloride 250 ML IVPB SCH (10:52)
[2020-04-12] MEDS ORDERED: Divalproex Sodium 125 MG Sprinkle Capsule (DR) PO SCH (11:45)
[2020-04-12] MEDS ORDERED: Potassium Phosphate 44 MEQ in 0.9 % Sodium Chloride 250 ML IVPB PRN (12:03)
[2020-04-12 12:55] LABS: Basophils % 0.1 %; Eosinophils % 0.1 %; Hematocrit 29.5 % (35.3-44.9); Immature Granulocytes % 0.6 % (0-4); Lymphocytes # 1.3 K/mcL (0.6-4.6); Lymphocytes % 11.5 %; Mean Corpuscular HGB Conc 27.1 g/dL (31.6-35.5); Mean Corpuscular Volume 92.2 fL (83.0-100.0); Mean Platelet Volume 11.4 fL (9.4-12.4); Monocytes # 0.5 K/mcL (0.0-1.3); Monocytes % 4.7 %; Neutrophils # 9.2 K/mcL (1.6-8.9); Platelet Count 162 K/mcL (140-400); Red Cell Distribution Width 25.4 % (11.5-14.5); White Blood Count 11.1 K/mcL (4.3-11.1)
[2020-04-12 13:15] LABS: BUN/Creatinine Ratio 58 (6-26); Blood Urea Nitrogen 48 mg/dL (6-20); Calcium 10.1 mg/dL (8.6-10.3); Carbon Dioxide > 45 mEq/L (23-29); Chloride 97 mEq/L (98-107); Glucose 144 mg/dL (70-105); Osmolality,Calculated 315 (280-300); Potassium 3.2 mEq/L (3.5-5.1); Sodium 145 mEq/L (136-145); eGFR For African Americans > 60 (> 60); eGFR For Non-African Americans > 60 (> 60)
[2020-04-12] MEDS: Potassium Chloride 40 MEQ/200 ML BAG IVPB PRN ×2 (13:27→18:47)
[2020-04-12] MEDS: Valproic Acid Oral Soln 250 MG/5 ML UDC GTUBE SCH ×2 (13:46→19:31)
[2020-04-12 14:43] LABS: Appearance of Body Fluid Hazy (Clear); Volume of Body Fluid 24 mL
[2020-04-12 18:13] LABS: Hematocrit 30.2 % (35.3-44.9); Hemoglobin 8.2 g/dL (11.5-15.4)
[2020-04-12] MEDS: Insulin DETEMIR 100 UNIT/ML X5UNITS SUBQ SCH (19:31)
[2020-04-13 00:49] LABS: Hematocrit 32.2 % (35.3-44.9); Hemoglobin 8.8 g/dL (11.5-15.4)
[2020-04-13 01:03] LABS: BUN/Creatinine Ratio 63 (6-26); Blood Urea Nitrogen 47 mg/dL (6-20); Calcium 10.3 mg/dL (8.6-10.3); Carbon Dioxide > 45 mEq/L (23-29); Chloride 96 mEq/L (98-107); Glucose 87 mg/dL (70-105); Osmolality,Calculated 310 (280-300); Potassium 3.7 mEq/L (3.5-5.1); Sodium 144 mEq/L (136-145); eGFR For African Americans > 60 (> 60); eGFR For Non-African Americans > 60 (> 60)
[2020-04-13] MEDS: FentaNYL (PF) 1,000 MCG/100 ML IV.SOLN IVC SCH ×3 (01:19→20:41)
[2020-04-13] MEDS: Potassium Chloride 40 MEQ/200 ML BAG IVPB PRN (01:19)
[2020-04-13] MEDS: Ipratropium/Albuterol Neb 3 ML IH SCH ×6 (03:28→23:25)
[2020-04-13] MEDS: Artificial Tears SOLN 15 ML BOTTLE BOTH EYES SCH ×6 (03:31→23:47)
[2020-04-13 04:37] LABS: Basophils % 0.1 %; Hemoglobin 8.7 g/dL (11.5-15.4); Immature Granulocytes % 0.6 % (0-4)
[2020-04-13 04:38] LABS: Eosinophils % 0.3 %; Hematocrit 31.7 % (35.3-44.9); Immature Platelets 10.4 % (1.1-6.1); Lymphocytes % 14.3 %; Mean Corpuscular HGB Conc 27.4 g/dL (31.6-35.5); Mean Corpuscular Hemoglobin 25.1 pg (28.0-33.3); Mean Corpuscular Volume 91.6 fL (83.0-100.0); Mean Platelet Volume 11.8 fL (9.4-12.4); Monocytes # 0.6 K/mcL (0.0-1.3); Monocytes % 5.2 %; Neutrophils # 8.6 K/mcL (1.6-8.9); Platelet Count 147 K/mcL (140-400); Red Blood Count 3.46 M/mcL (3.82-4.97); Red Cell Distribution Width 25.7 % (11.5-14.5); Segmented Neutrophils % 79.5 %; White Blood Count 10.8 K/mcL (4.3-11.1)
[2020-04-13 04:42] LABS: Lymphocytes # 1.5 K/mcL (0.6-4.6)
[2020-04-13 04:50] LABS: ABG Base Excess 27 mEq/L (-2 to 3); ABG HCO3 53 mEq/L (21-27); ABG Oxygen Saturation 90 % (95-98); ABG PCO2 63 mmHg (35-45); ABG PH 7.53 pH Units (7.32-7.45); ABG PO2 55 mmHg (85-104); ABG TCO2 > 50 mEq/L (20-26); Blood Gas VT 400 cc
[2020-04-13 04:54] LABS: Anisocytosis 3+ (Not Present); Platelet Estimate Normal (Normal); Poikilocytosis 3+ (Not Present)
[2020-04-13 04:55] LABS: Macrocytosis Present (Not Present); Microcytosis Present (Not Present); Stomatocytes 2+ (Not Present); Target Cells 1+ (Not Present)
[2020-04-13] MEDS: Midazolam HCl 50 MG/100 ML IV.SOLN IVC SCH (05:22)
[2020-04-13] MEDS: Pantoprazole 40 MG VIAL IVP SCH (05:22)
[2020-04-13] MEDS: Insulin LISPRO 300 UNITS/3 ML VIAL SUBQ SCH ×4 (05:40→23:47)
[2020-04-13 06:23] LABS: BUN/Creatinine Ratio 60 (6-26); Blood Urea Nitrogen 46 mg/dL (6-20); Calcium 10.1 mg/dL (8.6-10.3); Carbon Dioxide > 45 mEq/L (23-29); Chloride 97 mEq/L (98-107); Glucose 78 mg/dL (70-105); Osmolality,Calculated 313 (280-300); Sodium 146 mEq/L (136-145); eGFR For African Americans > 60 (> 60); eGFR For Non-African Americans > 60 (> 60)
[2020-04-13] MEDS: Budesonide/Formoterol 160/4.5 1 PUFF INH IH SCH ×2 (07:41→19:59)
[2020-04-13] MEDS: Valproic Acid Oral Soln 250 MG/5 ML UDC GTUBE SCH ×2 (08:03→19:46)
[2020-04-13] MEDS: Magnesium Oxide 400 MG TABLET PO SCH (08:04)
[2020-04-13] MEDS: Chlorhexidine Rinse 15 ML MOUTHWASH MM SCH ×2 (08:04→19:47)
[2020-04-13] MEDS: rOPINIRole 1 MG TABLET PO SCH ×3 (08:04→19:47)
[2020-04-13] MEDS: Furosemide 40 MG/4 ML VIAL IVP SCH ×2 (08:04→19:47)
[2020-04-13] MEDS: Iron Sucrose Complex 250 MG in 0.9 % Sodium Chloride 250 ML IVPB SCH (08:05)
[2020-04-13] MEDS: Aspirin Enteric Coated 81 MG Tablet PO SCH (08:05)
[2020-04-13] MEDS: metOLazone 5 MG TABLET PO SCH (08:06)
[2020-04-13] MEDS ORDERED: acetaZOLAMIDE 500 MG in Water for inj. (sterile) 5 ML IVP ONE ×2 (09:30→21:39)
[2020-04-13] MEDS: Insulin DETEMIR 100 UNIT/ML X5UNITS SUBQ SCH (19:50)
[2020-04-13] MEDS: Dexmedetomidine HCl 400 MCG/100 ML MLS IVC SCH (22:05)
[2020-04-13 23:53] LABS: ABG Base Excess 23 mEq/L (-2 to 3); ABG HCO3 53 mEq/L (21-27); ABG Oxygen Saturation 96 % (95-98); ABG PCO2 89 mmHg (35-45); ABG PH 7.38 pH Units (7.32-7.45); ABG PO2 90 mmHg (85-104); ABG TCO2 > 50 mEq/L (20-26); Blood Gas VT 350 cc
[2020-04-14 00:06] LABS: VBG Ionized Calcium 1.28 mmol/L (1.15-1.35)
[2020-04-14 00:26] LABS: BUN/Creatinine Ratio 58 (6-26); Blood Urea Nitrogen 43 mg/dL (6-20); Calcium 9.7 mg/dL (8.6-10.3); Carbon Dioxide > 45 mEq/L (23-29); Chloride 96 mEq/L (98-107); Glucose 104 mg/dL (70-105); Hematocrit 31.7 % (35.3-44.9); Hemoglobin 8.4 g/dL (11.5-15.4); Osmolality,Calculated 315 (280-300); Phosphorous 2.8 mg/dL (2.7-4.5); Potassium 3.7 mEq/L (3.5-5.1); Sodium 147 mEq/L (136-145); eGFR For African Americans > 60 (> 60); eGFR For Non-African Americans > 60 (> 60)
[2020-04-14] MEDS: Ipratropium/Albuterol Neb 3 ML IH SCH ×6 (03:35→23:54)
[2020-04-14] MEDS: Artificial Tears SOLN 15 ML BOTTLE BOTH EYES SCH ×5 (04:02→19:40)
[2020-04-14 04:24] LABS: ABG Base Excess 23 mEq/L (-2 to 3); ABG HCO3 53 mEq/L (21-27); ABG Oxygen Saturation 94 % (95-98); ABG PCO2 89 mmHg (35-45); ABG PH 7.38 pH Units (7.32-7.45); ABG PO2 78 mmHg (85-104); ABG TCO2 > 50 mEq/L (20-26); Blood Gas VT 350 cc
[2020-04-14 04:26] LABS: Basophils % 0.1 %; Mean Corpuscular Hemoglobin 25.4 pg (28.0-33.3); Red Cell Distribution Width 26.4 % (11.5-14.5)
[2020-04-14 04:28] LABS: Eosinophils # 0.2 K/mcL (0.0-0.6); Hematocrit 32.6 % (35.3-44.9); Hemoglobin 8.6 g/dL (11.5-15.4); Immature Granulocytes % 0.6 % (0-4); Immature Platelets 6.1 % (1.1-6.1); Lymphocytes % 10.9 %; Mean Corpuscular HGB Conc 26.4 g/dL (31.6-35.5); Mean Corpuscular Volume 96.4 fL (83.0-100.0); Monocytes # 0.5 K/mcL (0.0-1.3); Monocytes % 5.5 %; Neutrophils # 7.6 K/mcL (1.6-8.9); Platelet Count 129 K/mcL (140-400); Red Blood Count 3.38 M/mcL (3.82-4.97); Segmented Neutrophils % 80.9 %; White Blood Count 9.4 K/mcL (4.3-11.1)
[2020-04-14 04:44] LABS: BUN/Creatinine Ratio 63 (6-26); Blood Urea Nitrogen 43 mg/dL (6-20); Calcium 10.1 mg/dL (8.6-10.3); Carbon Dioxide > 45 mEq/L (23-29); Chloride 95 mEq/L (98-107); Glucose 107 mg/dL (70-105); Magnesium 1.9 mg/dL (1.6-2.6); Osmolality,Calculated 315 (280-300); Potassium 3.6 mEq/L (3.5-5.1); Sodium 147 mEq/L (136-145); eGFR For African Americans > 60 (> 60); eGFR For Non-African Americans > 60 (> 60)
[2020-04-14 05:03] LABS: Anisocytosis 1+ (Not Present); Hypochromasia Present (Not Present); Platelet Estimate Normal (Normal); Poikilocytosis 1+ (Not Present)
[2020-04-14] MEDS: Pantoprazole 40 MG VIAL IVP SCH (05:13)
[2020-04-14] MEDS: Potassium Chloride 40 MEQ/200 ML BAG IVPB PRN ×2 (05:14→15:02)
[2020-04-14] MEDS: Insulin LISPRO 300 UNITS/3 ML VIAL SUBQ SCH ×3 (05:14→17:23)
[2020-04-14] MEDS ORDERED: Magnesium Sulfate 1 GM/102 ML PIGGYBACK IVPB ONE (05:37)
[2020-04-14] MEDS: FentaNYL (PF) 1,000 MCG/100 ML IV.SOLN IVC SCH ×2 (07:01→19:23)
[2020-04-14] MEDS: Budesonide/Formoterol 160/4.5 1 PUFF INH IH SCH ×2 (08:39→20:21)
[2020-04-14] MEDS: rOPINIRole 1 MG TABLET PO SCH ×3 (08:53→19:40)
[2020-04-14] MEDS: Chlorhexidine Rinse 15 ML MOUTHWASH MM SCH ×2 (08:53→19:40)
[2020-04-14] MEDS: Furosemide 40 MG/4 ML VIAL IVP SCH ×2 (08:53→19:40)
[2020-04-14] MEDS: Aspirin Enteric Coated 81 MG Tablet PO SCH (08:53)
[2020-04-14] MEDS: Magnesium Oxide 400 MG TABLET PO SCH (08:53)
[2020-04-14] MEDS: Iron Sucrose Complex 250 MG in 0.9 % Sodium Chloride 250 ML IVPB SCH (08:55)
[2020-04-14] MEDS: metOLazone 5 MG TABLET PO SCH (09:28)
[2020-04-14] MEDS: Valproic Acid Oral Soln 250 MG/5 ML UDC GTUBE SCH ×2 (09:29→19:40)
[2020-04-14] MEDS: Dexmedetomidine HCl 400 MCG/100 ML MLS IVC SCH (10:15)
[2020-04-14] MEDS: levoFLOXacin 750 MG/150 ML 750 MG/150 ML BAG IVPB SCH (11:26)
[2020-04-14 14:03] LABS: VBG Ionized Calcium 1.23 mmol/L (1.15-1.35)
[2020-04-14 14:55] LABS: BUN/Creatinine Ratio 56 (6-26); Blood Urea Nitrogen 37 mg/dL (6-20); Calcium 10.4 mg/dL (8.6-10.3); Carbon Dioxide > 45 mEq/L (23-29); Chloride 93 mEq/L (98-107); Glucose 180 mg/dL (70-105); Magnesium 1.9 mg/dL (1.6-2.6); Osmolality,Calculated 315 (280-300); Potassium 3.7 mEq/L (3.5-5.1); Sodium 146 mEq/L (136-145); eGFR For African Americans > 60 (> 60); eGFR For Non-African Americans > 60 (> 60)
[2020-04-14] MEDS: Midazolam HCl 50 MG/100 ML IV.SOLN IVC SCH (17:23)
[2020-04-14] MEDS: Insulin DETEMIR 100 UNIT/ML X5UNITS SUBQ SCH (20:07)
[2020-04-15] MEDS: Artificial Tears SOLN 15 ML BOTTLE BOTH EYES SCH ×7 (00:01→23:12)
[2020-04-15] MEDS: Dexmedetomidine HCl 400 MCG/100 ML MLS IVC SCH ×2 (00:02→20:16)
[2020-04-15] MEDS: Insulin LISPRO 300 UNITS/3 ML VIAL SUBQ SCH ×5 (00:03→23:12)
[2020-04-15 04:02] LABS: BUN/Creatinine Ratio 48 (6-26); Blood Urea Nitrogen 34 mg/dL (6-20); Calcium 10.3 mg/dL (8.6-10.3); Carbon Dioxide > 45 mEq/L (23-29); Chloride 90 mEq/L (98-107); Glucose 156 mg/dL (70-105); Magnesium 1.7 mg/dL (1.6-2.6); Osmolality,Calculated 307 (280-300); Phosphorous 2.7 mg/dL (2.7-4.5); Potassium 3.6 mEq/L (3.5-5.1); Sodium 143 mEq/L (136-145); eGFR For African Americans > 60 (> 60); eGFR For Non-African Americans > 60 (> 60)
[2020-04-15] MEDS: Ipratropium/Albuterol Neb 3 ML IH SCH ×6 (04:04→23:39)
[2020-04-15 04:08] LABS: ABG Base Excess 22 mEq/L (-2 to 3); ABG HCO3 50 mEq/L (21-27); ABG Oxygen Saturation 95 % (95-98); ABG PCO2 75 mmHg (35-45); ABG PH 7.44 pH Units (7.32-7.45); ABG PO2 77 mmHg (85-104); ABG TCO2 > 50 mEq/L (20-26); Blood Gas Modality ASSIST CONTROL; Blood Gas VT 450 cc
[2020-04-15 05:25] LABS: VBG Ionized Calcium 1.19 mmol/L (1.15-1.35)
[2020-04-15] MEDS: Pantoprazole 40 MG VIAL IVP SCH (06:00)
[2020-04-15] MEDS: Potassium Chloride 40 MEQ/200 ML BAG IVPB PRN ×2 (06:01→17:25)
[2020-04-15] MEDS: FentaNYL (PF) 1,000 MCG/100 ML IV.SOLN IVC SCH (06:14)
[2020-04-15 07:06] LABS: Basophils % 0.1 %; Hemoglobin 9.2 g/dL (11.5-15.4); Red Cell Distribution Width 25.5 % (11.5-14.5)
[2020-04-15 07:08] LABS: Eosinophils # 0.2 K/mcL (0.0-0.6); Hematocrit 33.2 % (35.3-44.9); Immature Granulocytes % 0.6 % (0-4); Immature Platelets 11.2 % (1.1-6.1); Lymphocytes # 0.9 K/mcL (0.6-4.6); Lymphocytes % 9.3 %; Mean Corpuscular HGB Conc 27.7 g/dL (31.6-35.5); Mean Corpuscular Hemoglobin 25.1 pg (28.0-33.3); Mean Corpuscular Volume 90.7 fL (83.0-100.0); Monocytes # 0.7 K/mcL (0.0-1.3); Monocytes % 7.2 %; Neutrophils # 7.9 K/mcL (1.6-8.9); Platelet Count 124 K/mcL (140-400); Red Blood Count 3.66 M/mcL (3.82-4.97); Segmented Neutrophils % 80.8 %; White Blood Count 9.8 K/mcL (4.3-11.1)
[2020-04-15 07:16] LABS: Anisocytosis 2+ (Not Present); Hypochromasia Present (Not Present); Platelet Estimate Slight Decrease (Normal); Poikilocytosis 1+ (Not Present)
[2020-04-15] MEDS: levoFLOXacin 750 MG/150 ML 750 MG/150 ML BAG IVPB SCH (07:18)
[2020-04-15] MEDS: Chlorhexidine Rinse 15 ML MOUTHWASH MM SCH ×2 (07:23→19:59)
[2020-04-15] MEDS: Valproic Acid Oral Soln 250 MG/5 ML UDC GTUBE SCH ×2 (07:23→19:59)
[2020-04-15] MEDS: Aspirin Enteric Coated 81 MG Tablet PO SCH (07:23)
[2020-04-15] MEDS: Magnesium Oxide 400 MG TABLET PO SCH (07:24)
[2020-04-15] MEDS: rOPINIRole 1 MG TABLET PO SCH ×3 (07:24→19:59)
[2020-04-15] MEDS: Furosemide 40 MG/4 ML VIAL IVP SCH ×2 (07:24→20:05)
[2020-04-15] MEDS: Budesonide/Formoterol 160/4.5 1 PUFF INH IH SCH ×2 (07:27→19:40)
[2020-04-15] MEDS: Acetaminophen 325 MG TABLET PO PRN (07:59)
[2020-04-15] MEDS: metOLazone 5 MG TABLET PO SCH (08:00)
[2020-04-15 12:12] LABS: ABG Base Excess 23 mEq/L (-2 to 3); ABG HCO3 51 mEq/L (21-27); ABG Oxygen Saturation 77 % (95-98); ABG PCO2 73 mmHg (35-45); ABG PH 7.45 pH Units (7.32-7.45); ABG PO2 43 mmHg (85-104); ABG TCO2 > 50 mEq/L (20-26); Blood Gas Modality AF; Blood Gas VT 400 cc
[2020-04-15 15:06] LABS: VBG Ionized Calcium 0.96 mmol/L (1.15-1.35)
[2020-04-15 15:50] LABS: BUN/Creatinine Ratio 39 (6-26); Blood Urea Nitrogen 31 mg/dL (6-20); Calcium 10.1 mg/dL (8.6-10.3); Carbon Dioxide > 45 mEq/L (23-29); Chloride 91 mEq/L (98-107); Glucose 139 mg/dL (70-105); Magnesium 2.1 mg/dL (1.6-2.6); Osmolality,Calculated 307 (280-300); Potassium 3.8 mEq/L (3.5-5.1); Sodium 144 mEq/L (136-145); eGFR For African Americans > 60 (> 60); eGFR For Non-African Americans > 60 (> 60)
[2020-04-15] MEDS: Midazolam HCl 50 MG/100 ML IV.SOLN IVC SCH (17:16)
[2020-04-15] MEDS ORDERED: Calcium Gluconate 1gm/50mL 1 GM/50 ML BAG IVPB PRN (17:38)
[2020-04-15] MEDS ORDERED: acetaZOLAMIDE 250 MG in Water for inj. (sterile) 2.5 ML IVP ONE (18:43)
[2020-04-15] MEDS: Docusate Oral Soln 100 MG/10 ML UDC GTUBE SCH (19:59)
[2020-04-15] MEDS: Insulin DETEMIR 100 UNIT/ML X5UNITS SUBQ SCH (20:05)
[2020-04-16] MEDS: Artificial Tears SOLN 15 ML BOTTLE BOTH EYES SCH ×6 (03:26→23:18)
[2020-04-16 03:35] LABS: Basophils % 0.1 %; Immature Granulocytes % 0.5 % (0-4)
[2020-04-16 03:36] LABS: Eosinophils # 0.2 K/mcL (0.0-0.6); Eosinophils % 2.4 %; Hematocrit 30.8 % (35.3-44.9); Hemoglobin 8.5 g/dL (11.5-15.4); Immature Platelets 7.1 % (1.1-6.1); Lymphocytes # 1.7 K/mcL (0.6-4.6); Lymphocytes % 20.9 %; Mean Corpuscular HGB Conc 27.6 g/dL (31.6-35.5); Mean Corpuscular Hemoglobin 25.2 pg (28.0-33.3); Mean Corpuscular Volume 91.4 fL (83.0-100.0); Monocytes # 0.1 K/mcL (0.0-1.3); Monocytes % 1.3 %; Platelet Count 106 K/mcL (140-400); Red Blood Count 3.37 M/mcL (3.82-4.97); Red Cell Distribution Width 25.2 % (11.5-14.5); Segmented Neutrophils % 74.8 %; White Blood Count 8.2 K/mcL (4.3-11.1)
[2020-04-16] MEDS: Ipratropium/Albuterol Neb 3 ML IH SCH ×6 (03:37→23:25)
[2020-04-16 03:45] LABS: VBG Ionized Calcium 1.23 mmol/L (1.15-1.35)
[2020-04-16 04:07] LABS: ABG Base Excess 19 mEq/L (-2 to 3); ABG HCO3 47 mEq/L (21-27); ABG Oxygen Saturation 87 % (95-98); ABG PCO2 73 mmHg (35-45); ABG PH 7.42 pH Units (7.32-7.45); ABG PO2 56 mmHg (85-104); ABG TCO2 49 mEq/L (20-26); Blood Gas Modality ASSIST CONTROL; Blood Gas VT 400 cc
[2020-04-16 04:07] LABS: BUN/Creatinine Ratio 43 (6-26); Blood Urea Nitrogen 30 mg/dL (6-20); Carbon Dioxide > 45 mEq/L (23-29); Chloride 91 mEq/L (98-107); Glucose 166 mg/dL (70-105); Osmolality,Calculated 304 (280-300); Phosphorous 3.1 mg/dL (2.7-4.5); Potassium 3.4 mEq/L (3.5-5.1); Sodium 142 mEq/L (136-145); eGFR For African Americans > 60 (> 60); eGFR For Non-African Americans > 60 (> 60)
[2020-04-16 04:16] LABS: Neutrophils # 6.1 K/mcL (1.6-8.9)
[2020-04-16 04:43] LABS: Anisocytosis 2+ (Not Present); Hypochromasia Present (Not Present); Macrocytosis Present (Not Present); Platelet Estimate Decreased (Normal); Polychromasia 1+ (Not Present)
[2020-04-16] MEDS: Pantoprazole 40 MG VIAL IVP SCH (05:08)
[2020-04-16] MEDS: Insulin LISPRO 300 UNITS/3 ML VIAL SUBQ SCH ×4 (05:08→23:18)
[2020-04-16] MEDS: Potassium Chloride 40 MEQ/200 ML BAG IVPB PRN ×2 (05:36→16:05)
[2020-04-16] MEDS: Budesonide/Formoterol 160/4.5 1 PUFF INH IH SCH ×2 (07:33→20:08)
[2020-04-16] MEDS: Docusate Oral Soln 100 MG/10 ML UDC GTUBE SCH ×2 (07:38→19:37)
[2020-04-16] MEDS: Chlorhexidine Rinse 15 ML MOUTHWASH MM SCH ×2 (07:38→19:37)
[2020-04-16] MEDS: Valproic Acid Oral Soln 250 MG/5 ML UDC GTUBE SCH ×2 (07:38→19:37)
[2020-04-16] MEDS: metOLazone 5 MG TABLET PO SCH (07:39)
[2020-04-16] MEDS: Aspirin Enteric Coated 81 MG Tablet PO SCH (07:39)
[2020-04-16] MEDS: rOPINIRole 1 MG TABLET PO SCH ×3 (07:39→19:37)
[2020-04-16] MEDS: Magnesium Oxide 400 MG TABLET PO SCH (07:39)
[2020-04-16] MEDS: Aspirin 81 MG TAB.CHEW PO SCH (08:17)
[2020-04-16] MEDS ORDERED: 0.9 % Sodium Chloride 500 ML IVC ONE (08:30)
[2020-04-16] MEDS: levoFLOXacin 750 MG/150 ML 750 MG/150 ML BAG IVPB SCH (09:03)
[2020-04-16 15:38] LABS: Magnesium 1.4 mg/dL (1.6-2.6); Potassium 3.7 mEq/L (3.5-5.1)
[2020-04-16] MEDS: Insulin DETEMIR 100 UNIT/ML X5UNITS SUBQ SCH (19:37)
[2020-04-16] MEDS: Midazolam HCl 50 MG/100 ML IV.SOLN IVC SCH (19:38)
[2020-04-16] MEDS: Dexmedetomidine HCl 400 MCG/100 ML MLS IVC SCH (19:38)
[2020-04-16 23:55] LABS: Magnesium 1.6 mg/dL (1.6-2.6); Potassium 3.4 mEq/L (3.5-5.1)
[2020-04-17] MEDS: Potassium Chloride 40 MEQ/200 ML BAG IVPB PRN ×3 (00:25→15:40)
[2020-04-17] MEDS: Artificial Tears SOLN 15 ML BOTTLE BOTH EYES SCH ×6 (03:15→23:10)
[2020-04-17] MEDS: Ipratropium/Albuterol Neb 3 ML IH SCH ×6 (03:40→23:37)
[2020-04-17 04:34] LABS: ABG Base Excess 19 mEq/L (-2 to 3); ABG HCO3 47 mEq/L (21-27); ABG Oxygen Saturation 92 % (95-98); ABG PCO2 75 mmHg (35-45); ABG PH 7.41 pH Units (7.32-7.45); ABG PO2 66 mmHg (85-104); ABG TCO2 50 mEq/L (20-26); Blood Gas VT 400 cc
[2020-04-17 05:15] LABS: VBG Ionized Calcium 1.19 mmol/L (1.15-1.35)
[2020-04-17 05:21] LABS: Basophils % 0.1 %; Red Cell Distribution Width 25.2 % (11.5-14.5)
[2020-04-17 05:23] LABS: Eosinophils # 0.2 K/mcL (0.0-0.6); Eosinophils % 2.5 %; Hematocrit 30.5 % (35.3-44.9); Hemoglobin 8.3 g/dL (11.5-15.4); Immature Granulocytes % 0.9 % (0-4); Immature Platelets 7.1 % (1.1-6.1); Lymphocytes # 1.1 K/mcL (0.6-4.6); Lymphocytes % 13.6 %; Mean Corpuscular HGB Conc 27.2 g/dL (31.6-35.5); Mean Corpuscular Hemoglobin 25.4 pg (28.0-33.3); Mean Corpuscular Volume 93.3 fL (83.0-100.0); Monocytes # 0.9 K/mcL (0.0-1.3); Neutrophils # 5.7 K/mcL (1.6-8.9); Red Blood Count 3.27 M/mcL (3.82-4.97); Segmented Neutrophils % 71.9 %; White Blood Count 7.9 K/mcL (4.3-11.1)
[2020-04-17 05:37] LABS: BUN/Creatinine Ratio 44 (6-26); Blood Urea Nitrogen 27 mg/dL (6-20); Calcium 9.3 mg/dL (8.6-10.3); Carbon Dioxide 45 mEq/L (23-29); Chloride 93 mEq/L (98-107); Glucose 158 mg/dL (70-105); Magnesium 1.9 mg/dL (1.6-2.6); Osmolality,Calculated 300 (280-300); Phosphorous 2.7 mg/dL (2.7-4.5); Potassium 3.6 mEq/L (3.5-5.1); Sodium 141 mEq/L (136-145); eGFR For African Americans > 60 (> 60); eGFR For Non-African Americans > 60 (> 60)
[2020-04-17] MEDS: Insulin LISPRO 300 UNITS/3 ML VIAL SUBQ SCH ×4 (05:54→23:52)
[2020-04-17] MEDS: Pantoprazole 40 MG VIAL IVP SCH (05:57)
[2020-04-17 06:26] LABS: Platelet Count 98 K/mcL (140-400)
[2020-04-17 06:28] LABS: Hypochromasia Present (Not Present)
[2020-04-17 06:29] LABS: Anisocytosis 1+ (Not Present); Platelet Estimate Decreased (Normal); Poikilocytosis 1+ (Not Present)
[2020-04-17] MEDS: Valproic Acid Oral Soln 250 MG/5 ML UDC GTUBE SCH ×2 (07:39→19:35)
[2020-04-17] MEDS: Docusate Oral Soln 100 MG/10 ML UDC GTUBE SCH ×2 (07:39→19:35)
[2020-04-17] MEDS: Magnesium Oxide 400 MG TABLET PO SCH (07:40)
[2020-04-17] MEDS: rOPINIRole 1 MG TABLET PO SCH ×3 (07:40→19:35)
[2020-04-17] MEDS: Chlorhexidine Rinse 15 ML MOUTHWASH MM SCH ×2 (07:41→20:13)
[2020-04-17] MEDS: Aspirin 81 MG TAB.CHEW PO SCH (07:42)
[2020-04-17] MEDS: Budesonide/Formoterol 160/4.5 1 PUFF INH IH SCH ×2 (07:43→19:42)
[2020-04-17] MEDS ORDERED: Isovue-370 500 ML BOTTLE IVP ONE (08:15)
[2020-04-17] MEDS ORDERED: Bisacodyl 10 MG RECTAL SUPPOSITORY RC PRN (10:27)
[2020-04-17 10:52] LABS: Adenovirus Not Detected (Not Detect); Bordetella Pertussis Not Detected (Not Detect); Chlamydophila pneumoniae Not Detected (Not Detect); Coronavirus 229E Not Detected (Not Detect); Coronavirus HKU1 Not Detected (Not Detect); Coronavirus NL63 Not Detected (Not Detect); Coronavirus OC43 Not Detected (Not Detect); Human Metapneumovirus Not Detected (Not Detect); Human Rhinovirus/Enterovirus Not Detected (Not Detect); Influenza A Subtype 2009 H1 Not Detected (Not Detect); Influenza B Not Detected (Not Detect); Mycoplasma pneumoniae Not Detected (Not Detect); Parainfluenza Virus 1 Not Detected (Not Detect); Parainfluenza Virus 2 Not Detected (Not Detect); Parainfluenza Virus 3 Not Detected (Not Detect); Parainfluenza Virus 4 Not Detected (Not Detect); Respiratory Syncytial Virus Not Detected (Not Detect); SARS-CoV-2 Not Detected (Not Detect)
[2020-04-17] MEDS ORDERED: Bisacodyl 10 MG RECTAL SUPPOSITORY RC ONE (11:00)
[2020-04-17] MEDS: levoFLOXacin 750 MG/150 ML 750 MG/150 ML BAG IVPB SCH (12:40)
[2020-04-17 13:37] LABS: Magnesium 2.6 mg/dL (1.6-2.6); Phosphorous 2.9 mg/dL (2.7-4.5); Potassium 3.6 mEq/L (3.5-5.1)
[2020-04-17] MEDS ORDERED: *HR* Heparin 5,000 UNIT/ML VIAL SQ SCH (14:00)
[2020-04-17] MEDS: *HR* Heparin 5,000 UNIT/ML VIAL SQ SCH ×2 (15:19→20:13)
[2020-04-17] MEDS: Dexmedetomidine HCl 400 MCG/100 ML MLS IVC SCH (15:48)
[2020-04-17] MEDS: Midazolam HCl 50 MG/100 ML IV.SOLN IVC SCH (15:49)
[2020-04-17] MEDS: Furosemide 40 MG/4 ML VIAL IVP SCH (16:31)
[2020-04-17] MEDS: Insulin DETEMIR 100 UNIT/ML X5UNITS SUBQ SCH (20:13)
[2020-04-18] MEDS: Ipratropium/Albuterol Neb 3 ML IH SCH ×5 (03:50→19:56)
[2020-04-18] MEDS: Artificial Tears SOLN 15 ML BOTTLE BOTH EYES SCH ×4 (04:04→15:26)
[2020-04-18 04:14] LABS: VBG Ionized Calcium 1.19 mmol/L (1.15-1.35)
[2020-04-18 04:29] LABS: Hemoglobin 8.2 g/dL (11.5-15.4); Immature Granulocytes % 0.8 % (0-4)
[2020-04-18 04:30] LABS: Basophils % 0.2 %; Eosinophils # 0.3 K/mcL (0.0-0.6); Eosinophils % 3.1 %; Hematocrit 29.7 % (35.3-44.9); Immature Platelets 7.1 % (1.1-6.1); Lymphocytes % 11.3 %; Mean Corpuscular HGB Conc 27.6 g/dL (31.6-35.5); Mean Corpuscular Hemoglobin 25.5 pg (28.0-33.3); Mean Corpuscular Volume 92.5 fL (83.0-100.0); Monocytes # 1.2 K/mcL (0.0-1.3); Monocytes % 14.2 %; Neutrophils # 6.1 K/mcL (1.6-8.9); Red Blood Count 3.21 M/mcL (3.82-4.97); Segmented Neutrophils % 70.4 %; White Blood Count 8.7 K/mcL (4.3-11.1)
[2020-04-18 04:34] LABS: Platelet Count 95 K/mcL (140-400)
[2020-04-18] MEDS: Insulin LISPRO 300 UNITS/3 ML VIAL SUBQ SCH ×3 (05:04→20:35)
[2020-04-18 05:08] LABS: Anisocytosis 2+ (Not Present); BUN/Creatinine Ratio 35 (6-26); Blood Urea Nitrogen 21 mg/dL (6-20); Calcium 9.5 mg/dL (8.6-10.3); Carbon Dioxide > 45 mEq/L (23-29); Chloride 93 mEq/L (98-107); Glucose 101 mg/dL (70-105); Hypochromasia Present (Not Present); Magnesium 2.2 mg/dL (1.6-2.6); Osmolality,Calculated 295 (280-300); Phosphorous 3.1 mg/dL (2.7-4.5); Platelet Estimate Decreased (Normal); Potassium 3.7 mEq/L (3.5-5.1); Sodium 141 mEq/L (136-145); eGFR For African Americans > 60 (> 60); eGFR For Non-African Americans > 60 (> 60)
[2020-04-18] MEDS: Potassium Chloride 40 MEQ/200 ML BAG IVPB PRN (05:58)
[2020-04-18] MEDS: *HR* Heparin 5,000 UNIT/ML VIAL SQ SCH ×3 (05:58→20:31)
[2020-04-18] MEDS: Pantoprazole 40 MG VIAL IVP SCH (05:58)
[2020-04-18] MEDS: Budesonide/Formoterol 160/4.5 1 PUFF INH IH SCH ×2 (08:05→19:55)
[2020-04-18] MEDS: Furosemide 40 MG/4 ML VIAL IVP SCH (08:12)
[2020-04-18] MEDS ORDERED: metroNIDAZOLE 500 MG TABLET PO SCH (09:00)
[2020-04-18] MEDS: Docusate Oral Soln 100 MG/10 ML UDC GTUBE SCH ×2 (09:02→19:36)
[2020-04-18] MEDS: levoFLOXacin 750 MG/150 ML 750 MG/150 ML BAG IVPB SCH (09:03)
[2020-04-18] MEDS: Chlorhexidine Rinse 15 ML MOUTHWASH MM SCH (09:03)
[2020-04-18 11:14] LABS: Appearance of Body Fluid Cloudy (Clear)
[2020-04-18 11:15] LABS: Volume of Body Fluid 27 mL
[2020-04-18] MEDS: Aspirin 81 MG TAB.CHEW PO SCH (13:06)
[2020-04-18] MEDS: Valproic Acid Oral Soln 250 MG/5 ML UDC GTUBE SCH ×2 (13:06→20:32)
[2020-04-18] MEDS: Magnesium Oxide 400 MG TABLET PO SCH (13:06)
[2020-04-18] MEDS: rOPINIRole 1 MG TABLET PO SCH ×3 (13:07→20:26)
[2020-04-18] MEDS: Dexmedetomidine HCl 400 MCG/100 ML MLS IVC SCH (13:07)
[2020-04-18] MEDS ORDERED: MetroNIDAZOLE 500 MG/100 ML 500 MG/100 ML BAG IVPB SCH (16:00)
[2020-04-18] MEDS: FentaNYL (PF) 1,000 MCG/100 ML IV.SOLN IVC SCH (16:16)
[2020-04-18] MEDS: Midazolam HCl 50 MG/100 ML IV.SOLN IVC SCH (16:16)
[2020-04-18] MEDS ORDERED: Furosemide 40 MG/4 ML VIAL IVP SCH (17:00)
[2020-04-18] MEDS ORDERED: *HR* Metoprolol 5 MG/5 ML VIAL IVP PRN (18:43)
[2020-04-18] MEDS ORDERED: Bisacodyl 10 MG RECTAL SUPPOSITORY RC PRN (18:43)
[2020-04-18] MEDS ORDERED: Naloxone 0.4 MG/ML INJ IVP PRN (18:43)
[2020-04-18] MEDS ORDERED: Dextrose Gel 15 GM/37.5 ML TUBE PO PRN ×2 (18:43)
[2020-04-18] MEDS ORDERED: Ondansetron 4 MG/2 ML VIAL IVP PRN (18:43)
[2020-04-18] MEDS ORDERED: *HR* Dextrose 50 % in Water (Vial) 50 ML VIAL IVP PRN (18:43)
[2020-04-18] MEDS ORDERED: D5% in Water 1,000 ML IVC PRN (18:43)
[2020-04-18] MEDS ORDERED: Acetaminophen 325 MG TABLET PO PRN (18:43)
[2020-04-18] MEDS: Insulin DETEMIR 100 UNIT/ML X5UNITS SUBQ SCH (20:35)
[2020-04-18] MEDS: MetroNIDAZOLE 500 MG/100 ML 500 MG/100 ML BAG IVPB SCH (23:29)
[2020-04-19] MEDS: Ipratropium/Albuterol Neb 3 ML IH SCH ×6 (00:14→19:45)
[2020-04-19 04:17] LABS: Immature Granulocytes % 0.9 % (0-4); Mean Corpuscular Hemoglobin 25.9 pg (28.0-33.3)
[2020-04-19 04:19] LABS: Basophils % 0.2 %; Eosinophils # 0.2 K/mcL (0.0-0.6); Eosinophils % 3.4 %; Hematocrit 26.8 % (35.3-44.9); Hemoglobin 7.5 g/dL (11.5-15.4); Immature Platelets 6.1 % (1.1-6.1); Lymphocytes % 18.2 %; Mean Corpuscular Volume 92.4 fL (83.0-100.0); Mean Platelet Volume 11.3 fL (9.4-12.4); Monocytes # 0.8 K/mcL (0.0-1.3); Neutrophils # 3.4 K/mcL (1.6-8.9); Red Cell Distribution Width 25.1 % (11.5-14.5); Segmented Neutrophils % 62.3 %; White Blood Count 5.5 K/mcL (4.3-11.1)
[2020-04-19 04:29] LABS: Platelet Count 89 K/mcL (140-400)
[2020-04-19 04:44] LABS: BUN/Creatinine Ratio 29 (6-26); Blood Urea Nitrogen 18 mg/dL (6-20); Carbon Dioxide 44 mEq/L (23-29); Chloride 94 mEq/L (98-107); Glucose 89 mg/dL (70-105); Osmolality,Calculated 295 (280-300); Phosphorous 3.2 mg/dL (2.7-4.5); Potassium 3.3 mEq/L (3.5-5.1); Sodium 142 mEq/L (136-145); eGFR For African Americans > 60 (> 60); eGFR For Non-African Americans > 60 (> 60)
[2020-04-19 04:51] LABS: Anisocytosis 3+ (Not Present); Hypochromasia Present (Not Present); Platelet Estimate Decreased (Normal)
[2020-04-19] MEDS: *HR* Heparin 5,000 UNIT/ML VIAL SQ SCH ×3 (06:21→19:54)
[2020-04-19] MEDS: Pantoprazole 40 MG VIAL IVP SCH (06:22)
[2020-04-19] MEDS: Budesonide/Formoterol 160/4.5 1 PUFF INH IH SCH ×2 (08:05→19:42)
[2020-04-19] MEDS: Insulin LISPRO 300 UNITS/3 ML VIAL SUBQ SCH ×4 (08:16→19:53)
[2020-04-19] MEDS ORDERED: metOLazone 5 MG TABLET PO SCH (08:30)
[2020-04-19] MEDS: Valproic Acid Oral Soln 250 MG/5 ML UDC GTUBE SCH ×2 (09:05→19:21)
[2020-04-19] MEDS: Aspirin 81 MG TAB.CHEW PO SCH (09:06)
[2020-04-19] MEDS: Docusate Oral Soln 100 MG/10 ML UDC GTUBE SCH ×2 (09:06→19:30)
[2020-04-19] MEDS: Furosemide 40 MG/4 ML VIAL IVP SCH ×2 (09:06→17:15)
[2020-04-19] MEDS: rOPINIRole 1 MG TABLET PO SCH ×3 (09:06→19:21)
[2020-04-19] MEDS: Magnesium Oxide 400 MG TABLET PO SCH (09:07)
[2020-04-19] MEDS: MetroNIDAZOLE 500 MG/100 ML 500 MG/100 ML BAG IVPB SCH ×2 (09:07→15:36)
[2020-04-19] MEDS: metOLazone 5 MG TABLET PO SCH (09:07)
[2020-04-19] MEDS: levoFLOXacin 750 MG/150 ML 750 MG/150 ML BAG IVPB SCH (09:08)
[2020-04-19 10:03] LABS: Basophils % 0.2 %; Red Cell Distribution Width 25.1 % (11.5-14.5)
[2020-04-19 10:05] LABS: Eosinophils # 0.2 K/mcL (0.0-0.6); Eosinophils % 3.6 %; Hematocrit 28.5 % (35.3-44.9); Immature Platelets 6.3 % (1.1-6.1); Lymphocytes # 0.9 K/mcL (0.6-4.6); Mean Corpuscular HGB Conc 28.1 g/dL (31.6-35.5); Mean Corpuscular Hemoglobin 25.7 pg (28.0-33.3); Mean Corpuscular Volume 91.6 fL (83.0-100.0); Mean Platelet Volume 11.3 fL (9.4-12.4); Monocytes % 16.2 %; Red Blood Count 3.11 M/mcL (3.82-4.97); White Blood Count 6.2 K/mcL (4.3-11.1)
[2020-04-19 10:24] LABS: BUN/Creatinine Ratio 27 (6-26); Blood Urea Nitrogen 16 mg/dL (6-20); Calcium 9.3 mg/dL (8.6-10.3); Carbon Dioxide 42 mEq/L (23-29); Chloride 95 mEq/L (98-107); Glucose 96 mg/dL (70-105); Osmolality,Calculated 295 (280-300); Potassium 3.4 mEq/L (3.5-5.1); Sodium 142 mEq/L (136-145); eGFR For African Americans > 60 (> 60); eGFR For Non-African Americans > 60 (> 60)
[2020-04-19 10:54] LABS: Platelet Count 95 K/mcL (140-400)
[2020-04-19 10:55] LABS: Anisocytosis 2+ (Not Present); Hypochromasia Present (Not Present); Platelet Estimate Slight Decrease (Normal)
[2020-04-19] MEDS ORDERED: *HR* Heparin 5,000 UNIT/ML VIAL IVP PRN ×2 (18:46)
[2020-04-19] MEDS ORDERED: *HR* Heparin 5,000 UNIT/ML VIAL IVP ONE (18:46)
[2020-04-19 19:25] LABS: Hemoglobin 7.7 g/dL (11.5-15.4); Mean Corpuscular Volume 91.4 fL (83.0-100.0)
[2020-04-19 19:26] LABS: Hematocrit 27.5 % (35.3-44.9); Mean Corpuscular Hemoglobin 25.6 pg (28.0-33.3); Mean Platelet Volume 10.1 fL (9.4-12.4); Red Blood Count 3.01 M/mcL (3.82-4.97); Red Cell Distribution Width 24.9 % (11.5-14.5); White Blood Count 6.2 K/mcL (4.3-11.1)
[2020-04-19] MEDS: DilTIAZem 50 MG/50 ML IV.SOLN IVC SCH (19:28)
[2020-04-19 19:33] LABS: INR 1.2; Prothrombin Time 13.9 Seconds (9.4-12.1)
[2020-04-19 19:36] LABS: Heparin anti-factor XA UFH 0.04 IU/mL (0.30-0.70)
[2020-04-19] MEDS: Insulin DETEMIR 100 UNIT/ML X5UNITS SUBQ SCH (19:53)
[2020-04-19] MEDS: Heparin 25,000UNIT/250ML 1/2NS 25,000 UNIT/250 ML IV.SOLN IVC SCH (20:15)
[2020-04-20] MEDS: Ipratropium/Albuterol Neb 3 ML IH SCH ×7 (00:04→22:51)
[2020-04-20] MEDS: MetroNIDAZOLE 500 MG/100 ML 500 MG/100 ML BAG IVPB SCH ×3 (00:38→16:19)
[2020-04-20 04:33] LABS: Hemoglobin 7.2 g/dL (11.5-15.4)
[2020-04-20] MEDS: DilTIAZem 50 MG/50 ML IV.SOLN IVC SCH (04:34)
[2020-04-20 04:35] LABS: Eosinophils # 0.2 K/mcL (0.0-0.6); Eosinophils % 3.2 %; Hematocrit 25.4 % (35.3-44.9); Immature Granulocytes % 1.2 % (0-4); Immature Platelets 5.9 % (1.1-6.1); Lymphocytes # 1.3 K/mcL (0.6-4.6); Lymphocytes % 23.2 %; Mean Corpuscular HGB Conc 28.3 g/dL (31.6-35.5); Mean Corpuscular Hemoglobin 26.1 pg (28.0-33.3); Mean Platelet Volume 10.6 fL (9.4-12.4); Monocytes # 0.8 K/mcL (0.0-1.3); Monocytes % 13.7 %; Neutrophils # 3.4 K/mcL (1.6-8.9); Platelet Count 96 K/mcL (140-400); Red Blood Count 2.76 M/mcL (3.82-4.97); Red Cell Distribution Width 25.1 % (11.5-14.5); Segmented Neutrophils % 58.7 %; White Blood Count 5.7 K/mcL (4.3-11.1)
[2020-04-20] MEDS: Pantoprazole 40 MG VIAL IVP SCH (04:35)
[2020-04-20] MEDS: *HR* Heparin 5,000 UNIT/ML VIAL SQ SCH (04:35)
[2020-04-20 04:55] LABS: Anisocytosis 1+ (Not Present); Hypochromasia Present (Not Present); Platelet Estimate Slight Decrease (Normal); Poikilocytosis 1+ (Not Present)
[2020-04-20 05:20] LABS: BUN/Creatinine Ratio 20 (6-26); Blood Urea Nitrogen 13 mg/dL (6-20); Calcium 8.8 mg/dL (8.6-10.3); Carbon Dioxide 45 mEq/L (23-29); Chloride 95 mEq/L (98-107); Glucose 94 mg/dL (70-105); Magnesium 1.7 mg/dL (1.6-2.6); Osmolality,Calculated 298 (280-300); Phosphorous 3.5 mg/dL (2.7-4.5); Potassium 2.9 mEq/L (3.5-5.1); Sodium 144 mEq/L (136-145); eGFR For African Americans > 60 (> 60); eGFR For Non-African Americans > 60 (> 60)
[2020-04-20] MEDS ORDERED: Potassium Chloride 40 MEQ, Lidocaine 1% 2 ML in 0.9 % Sodium Chloride 250 ML IVPB ONE (07:51)
[2020-04-20] MEDS: Budesonide/Formoterol 160/4.5 1 PUFF INH IH SCH ×2 (07:52→19:56)
[2020-04-20] MEDS: Insulin LISPRO 300 UNITS/3 ML VIAL SUBQ SCH ×3 (08:14→16:36)
[2020-04-20] MEDS: Aspirin 81 MG TAB.CHEW PO SCH (09:25)
[2020-04-20] MEDS: rOPINIRole 1 MG TABLET PO SCH ×3 (09:25→21:48)
[2020-04-20] MEDS: metOLazone 5 MG TABLET PO SCH (09:25)
[2020-04-20] MEDS: Magnesium Oxide 400 MG TABLET PO SCH ×2 (09:25→21:48)
[2020-04-20] MEDS: Docusate Oral Soln 100 MG/10 ML UDC GTUBE SCH ×2 (09:30→21:49)
[2020-04-20] MEDS: Valproic Acid Oral Soln 250 MG/5 ML UDC GTUBE SCH ×2 (09:30→21:49)
[2020-04-20] MEDS: Furosemide 40 MG/4 ML VIAL IVP SCH ×2 (11:08→16:16)
[2020-04-20] MEDS: levoFLOXacin 750 MG/150 ML 750 MG/150 ML BAG IVPB SCH (11:18)
[2020-04-20 17:13] LABS: BUN/Creatinine Ratio 16 (6-26); Blood Urea Nitrogen 11 mg/dL (6-20); Calcium 8.9 mg/dL (8.6-10.3); Carbon Dioxide 43 mEq/L (23-29); Chloride 94 mEq/L (98-107); Glucose 98 mg/dL (70-105); Magnesium 1.9 mg/dL (1.6-2.6); Osmolality,Calculated 295 (280-300); Sodium 143 mEq/L (136-145); eGFR For African Americans > 60 (> 60); eGFR For Non-African Americans > 60 (> 60)
[2020-04-21] MEDS: Heparin 25,000UNIT/250ML 1/2NS 25,000 UNIT/250 ML IV.SOLN IVC SCH (00:50)
[2020-04-21] MEDS: Insulin LISPRO 300 UNITS/3 ML VIAL SUBQ SCH ×4 (01:48→17:48)
[2020-04-21] MEDS: Insulin DETEMIR 100 UNIT/ML X5UNITS SUBQ SCH (01:48)
[2020-04-21] MEDS: MetroNIDAZOLE 500 MG/100 ML 500 MG/100 ML BAG IVPB SCH ×2 (02:20→07:54)
[2020-04-21] MEDS: Ipratropium/Albuterol Neb 3 ML IH SCH ×6 (04:01→23:09)
[2020-04-21] MEDS: Pantoprazole 40 MG VIAL IVP SCH (04:51)
[2020-04-21 05:08] LABS: Basophils % 0.4 %; Eosinophils # 0.1 K/mcL (0.0-0.6); Eosinophils % 2.8 %; Hematocrit 25.5 % (35.3-44.9); Hemoglobin 7.3 g/dL (11.5-15.4); Immature Granulocytes % 1.8 % (0-4); Immature Platelets 4.5 % (1.1-6.1); Lymphocytes # 1.2 K/mcL (0.6-4.6); Lymphocytes % 22.8 %; Mean Corpuscular HGB Conc 28.6 g/dL (31.6-35.5); Mean Corpuscular Hemoglobin 26.2 pg (28.0-33.3); Mean Corpuscular Volume 91.4 fL (83.0-100.0); Mean Platelet Volume 10.2 fL (9.4-12.4); Monocytes # 0.6 K/mcL (0.0-1.3); Monocytes % 12.3 %; Platelet Count 113 K/mcL (140-400); Red Blood Count 2.79 M/mcL (3.82-4.97); Red Cell Distribution Width 24.8 % (11.5-14.5); Segmented Neutrophils % 59.9 %; White Blood Count 5.1 K/mcL (4.3-11.1)
[2020-04-21 05:09] LABS: Neutrophils # 3.1 K/mcL (1.6-8.9)
[2020-04-21 05:27] LABS: BUN/Creatinine Ratio 14 (6-26); Blood Urea Nitrogen 9 mg/dL (6-20); Calcium 8.7 mg/dL (8.6-10.3); Carbon Dioxide 44 mEq/L (23-29); Chloride 94 mEq/L (98-107); Glucose 91 mg/dL (70-105); Magnesium 1.8 mg/dL (1.6-2.6); Osmolality,Calculated 294 (280-300); Potassium 2.7 mEq/L (3.5-5.1); Sodium 143 mEq/L (136-145); eGFR For African Americans > 60 (> 60); eGFR For Non-African Americans > 60 (> 60)
[2020-04-21 05:56] LABS: Anisocytosis 2+ (Not Present); Hypochromasia Present (Not Present); Macrocytosis Present (Not Present); Microcytosis Present (Not Present); Poikilocytosis 1+ (Not Present)
[2020-04-21 05:57] LABS: Platelet Estimate Decreased (Normal)
[2020-04-21] MEDS: Budesonide/Formoterol 160/4.5 1 PUFF INH IH SCH ×2 (07:27→19:55)
[2020-04-21] MEDS: Magnesium Oxide 400 MG TABLET PO SCH ×2 (07:51→19:33)
[2020-04-21] MEDS: rOPINIRole 1 MG TABLET PO SCH ×3 (07:52→19:33)
[2020-04-21] MEDS: Aspirin 81 MG TAB.CHEW PO SCH (07:52)
[2020-04-21] MEDS: Docusate Oral Soln 100 MG/10 ML UDC GTUBE SCH ×2 (07:52→19:35)
[2020-04-21] MEDS: Furosemide 40 MG/4 ML VIAL IVP SCH ×2 (07:53→17:47)
[2020-04-21] MEDS: Valproic Acid Oral Soln 250 MG/5 ML UDC GTUBE SCH ×2 (07:53→19:34)
[2020-04-21] MEDS: levoFLOXacin 750 MG/150 ML 750 MG/150 ML BAG IVPB SCH (07:54)
[2020-04-21] MEDS: Metoprolol XL (24 HR) Succ 25 MG TAB.ER.24H PO SCH (12:08)
[2020-04-21 13:29] LABS: BUN/Creatinine Ratio 11 (6-26); Blood Urea Nitrogen 7 mg/dL (6-20); Calcium 8.4 mg/dL (8.6-10.3); Carbon Dioxide 43 mEq/L (23-29); Chloride 93 mEq/L (98-107); Glucose 149 mg/dL (70-105); Osmolality,Calculated 293 (280-300); Potassium 2.7 mEq/L (3.5-5.1); Sodium 141 mEq/L (136-145); eGFR For African Americans > 60 (> 60); eGFR For Non-African Americans > 60 (> 60)
[2020-04-21] MEDS ORDERED: Potassium Chloride 40 MEQ, Lidocaine 1% 2 ML in 0.9 % Sodium Chloride 250 ML IVPB ONE (15:00)
[2020-04-21] MEDS ORDERED: E-Z-HD (BARIUM SULF) SUSPENSION PO ONE (15:36)
[2020-04-21] MEDS ORDERED: E-Z-PAQUE (BARIUM SULF) SUSP 1 BOTTLE PO ONE (15:36)
[2020-04-21] MEDS: DilTIAZem CD (24hr) 120 MG CAP.ER.24H PO SCH (15:48)
[2020-04-21] MEDS ORDERED: SODIUM CHLORIDE/NAHCO3/KCL/PEG 4,000 ML SOLN.RECON PO ONE (17:00)
[2020-04-21] MEDS: metroNIDAZOLE 500 MG TABLET PO SCH (19:34)
[2020-04-21 22:14] LABS: BUN/Creatinine Ratio 9 (6-26); Blood Urea Nitrogen 6 mg/dL (6-20); Carbon Dioxide 43 mEq/L (23-29); Chloride 93 mEq/L (98-107); Glucose 146 mg/dL (70-105); Osmolality,Calculated 292 (280-300); Potassium 2.9 mEq/L (3.5-5.1); Sodium 141 mEq/L (136-145); eGFR For African Americans > 60 (> 60); eGFR For Non-African Americans > 60 (> 60)
[2020-04-22] MEDS ORDERED: Potassium Chloride Elixir 20 MEQ/15 ML UDC PO ONE (01:08)
[2020-04-22] MEDS: Ipratropium/Albuterol Neb 3 ML IH SCH ×6 (03:45→22:54)
[2020-04-22] MEDS: Insulin LISPRO 300 UNITS/3 ML VIAL SUBQ SCH ×5 (04:27→19:57)
[2020-04-22] MEDS: Insulin DETEMIR 100 UNIT/ML X5UNITS SUBQ SCH (04:28)
[2020-04-22] MEDS: Pantoprazole 40 MG VIAL IVP SCH (04:28)
[2020-04-22 06:28] LABS: Hematocrit 27.3 % (35.3-44.9)
[2020-04-22 06:29] LABS: Basophils % 0.4 %; Eosinophils # 0.2 K/mcL (0.0-0.6); Eosinophils % 2.9 %; Hemoglobin 7.6 g/dL (11.5-15.4); Lymphocytes # 1.1 K/mcL (0.6-4.6); Lymphocytes % 20.6 %; Mean Corpuscular HGB Conc 27.8 g/dL (31.6-35.5); Mean Corpuscular Hemoglobin 26.7 pg (28.0-33.3); Mean Corpuscular Volume 95.8 fL (83.0-100.0); Mean Platelet Volume 10.1 fL (9.4-12.4); Monocytes # 0.7 K/mcL (0.0-1.3); Monocytes % 12.5 %; Neutrophils # 3.3 K/mcL (1.6-8.9); Platelet Count 116 K/mcL (140-400); Red Blood Count 2.85 M/mcL (3.82-4.97); Red Cell Distribution Width 24.9 % (11.5-14.5); Segmented Neutrophils % 61.6 %; White Blood Count 5.4 K/mcL (4.3-11.1)
[2020-04-22 07:20] LABS: Anisocytosis 2+ (Not Present); Hypochromasia Present (Not Present); Macrocytosis Present (Not Present); Microcytosis Present (Not Present)
[2020-04-22 07:21] LABS: Platelet Estimate Slight Decrease (Normal)
[2020-04-22] MEDS: Budesonide/Formoterol 160/4.5 1 PUFF INH IH SCH ×2 (07:32→20:06)
[2020-04-22] MEDS: Furosemide 40 MG/4 ML VIAL IVP SCH ×2 (08:20→17:10)
[2020-04-22] MEDS: Aspirin 81 MG TAB.CHEW PO SCH (08:21)
[2020-04-22] MEDS: levoFLOXacin 750 MG TABLET PO SCH (08:22)
[2020-04-22] MEDS: Docusate Oral Soln 100 MG/10 ML UDC GTUBE SCH (08:22)
[2020-04-22] MEDS: DilTIAZem CD (24hr) 120 MG CAP.ER.24H PO SCH (08:22)
[2020-04-22] MEDS: Valproic Acid Oral Soln 250 MG/5 ML UDC GTUBE SCH ×2 (08:22→20:00)
[2020-04-22] MEDS: Magnesium Oxide 400 MG TABLET PO SCH ×2 (08:22→19:57)
[2020-04-22] MEDS: metroNIDAZOLE 500 MG TABLET PO SCH ×3 (08:22→19:57)
[2020-04-22] MEDS: Metoprolol XL (24 HR) Succ 25 MG TAB.ER.24H PO SCH (08:23)
[2020-04-22] MEDS: rOPINIRole 1 MG TABLET PO SCH ×3 (08:23→19:57)
[2020-04-22] MEDS ORDERED: Lidocaine -MPF 2% 5 ML VIAL INFILT ONE (10:03)
[2020-04-22] MEDS ORDERED: *HR* Propofol 200 MG/20 ML VIAL IVP ONE (10:03)
[2020-04-22] MEDS ORDERED: Simethicone 40 MG/0.6 ML MLS IR ONE (12:23)
[2020-04-22 17:05] LABS: BUN/Creatinine Ratio 9 (6-26); Blood Urea Nitrogen 5 mg/dL (6-20); Calcium 8.9 mg/dL (8.6-10.3); Carbon Dioxide > 45 mEq/L (23-29); Chloride 93 mEq/L (98-107); Glucose 57 mg/dL (70-105); Magnesium 1.7 mg/dL (1.6-2.6); Osmolality,Calculated 289 (280-300); Sodium 142 mEq/L (136-145); eGFR For African Americans > 60 (> 60); eGFR For Non-African Americans > 60 (> 60)
[2020-04-23] MEDS: SODIUM CHLORIDE/NAHCO3/KCL/PEG 4,000 ML SOLN.RECON PO ONE ×2 (00:08→05:38)
[2020-04-23 03:08] LABS: Basophils % 0.4 %
[2020-04-23 03:09] LABS: Eosinophils # 0.2 K/mcL (0.0-0.6); Hematocrit 28.4 % (35.3-44.9); Hemoglobin 8.1 g/dL (11.5-15.4); Immature Granulocytes % 1.6 % (0-4); Lymphocytes # 1.3 K/mcL (0.6-4.6); Lymphocytes % 22.3 %; Mean Corpuscular HGB Conc 28.5 g/dL (31.6-35.5); Mean Corpuscular Hemoglobin 26.9 pg (28.0-33.3); Mean Corpuscular Volume 94.4 fL (83.0-100.0); Mean Platelet Volume 9.7 fL (9.4-12.4); Monocytes # 0.6 K/mcL (0.0-1.3); Monocytes % 11.4 %; Neutrophils # 3.4 K/mcL (1.6-8.9); Platelet Count 119 K/mcL (140-400); Red Blood Count 3.01 M/mcL (3.82-4.97); Segmented Neutrophils % 61.3 %; White Blood Count 5.6 K/mcL (4.3-11.1)
[2020-04-23] MEDS: Ipratropium/Albuterol Neb 3 ML IH SCH ×5 (03:28→20:16)
[2020-04-23 03:30] LABS: Anisocytosis 1+ (Not Present); Platelet Estimate Normal (Normal)
[2020-04-23 03:31] LABS: Hypochromasia Present (Not Present)
[2020-04-23 03:33] LABS: BUN/Creatinine Ratio 8 (6-26); Blood Urea Nitrogen 5 mg/dL (6-20); Calcium 9.1 mg/dL (8.6-10.3); Carbon Dioxide 45 mEq/L (23-29); Chloride 91 mEq/L (98-107); Glucose 117 mg/dL (70-105); Osmolality,Calculated 292 (280-300); Potassium 3.2 mEq/L (3.5-5.1); Sodium 142 mEq/L (136-145); eGFR For African Americans > 60 (> 60); eGFR For Non-African Americans > 60 (> 60)
[2020-04-23] MEDS: Pantoprazole 40 MG VIAL IVP SCH (06:01)
[2020-04-23] MEDS: Furosemide 40 MG/4 ML VIAL IVP SCH ×2 (08:43→17:56)
[2020-04-23] MEDS: rOPINIRole 1 MG TABLET PO SCH ×2 (08:47→15:10)
[2020-04-23] MEDS: levoFLOXacin 750 MG TABLET PO SCH (08:47)
[2020-04-23] MEDS: Metoprolol XL (24 HR) Succ 25 MG TAB.ER.24H PO SCH (08:48)
[2020-04-23] MEDS: Aspirin 81 MG TAB.CHEW PO SCH (08:49)
[2020-04-23] MEDS: metroNIDAZOLE 500 MG TABLET PO SCH ×2 (08:49→15:11)
[2020-04-23] MEDS: DilTIAZem CD (24hr) 120 MG CAP.ER.24H PO SCH (08:49)
[2020-04-23] MEDS: Magnesium Oxide 400 MG TABLET PO SCH (08:52)
[2020-04-23] MEDS: Insulin LISPRO 300 UNITS/3 ML VIAL SUBQ SCH ×3 (09:15→17:46)
[2020-04-23] MEDS: Valproic Acid Oral Soln 250 MG/5 ML UDC GTUBE SCH ×2 (09:33→10:09)
[2020-04-23] MEDS ORDERED: Potassium Chloride 40 MEQ, Lidocaine 1% 2 ML in 0.9 % Sodium Chloride 500 ML IVPB ONE (10:36)
[2020-04-23] MEDS: Budesonide/Formoterol 160/4.5 1 PUFF INH IH SCH ×2 (10:51→20:18)
[2020-04-23] MEDS ORDERED: *HR* Warfarin 2.5 MG TABLET PO ONE (18:00)
[2020-04-23] MEDS ORDERED: Warfarin perPT PO PRN (18:00)
[2020-04-23 18:33] LABS: VBG HCO3 53 mEq/L (21-27); VBG PCO2 61 mmHg (41-51); VBG PH 7.54 pH Units (7.32-7.42); VBG PO2 234 mmHg (25-50)
[2020-04-24] MEDS: Divalproex (12 HR) 500 MG TABLET PO SCH ×3 (00:01→20:58)
[2020-04-24] MEDS: metroNIDAZOLE 500 MG TABLET PO SCH ×4 (00:02→20:58)
[2020-04-24] MEDS: rOPINIRole 1 MG TABLET PO SCH ×4 (00:03→20:58)
[2020-04-24] MEDS: Magnesium Oxide 400 MG TABLET PO SCH ×3 (00:04→20:58)
[2020-04-24] MEDS: Insulin LISPRO 300 UNITS/3 ML VIAL SUBQ SCH ×5 (00:15→20:56)
[2020-04-24] MEDS: Ipratropium/Albuterol Neb 3 ML IH SCH ×7 (00:31→23:29)
[2020-04-24 03:13] LABS: INR 1.1; Prothrombin Time 12.6 Seconds (9.4-12.1)
[2020-04-24 03:15] LABS: Basophils % 0.6 %; Eosinophils # 0.2 K/mcL (0.0-0.6); Hemoglobin 7.5 g/dL (11.5-15.4); Immature Granulocytes % 1.4 % (0-4); Lymphocytes % 25.4 %; Mean Corpuscular HGB Conc 27.8 g/dL (31.6-35.5); Mean Corpuscular Hemoglobin 26.3 pg (28.0-33.3); Mean Corpuscular Volume 94.7 fL (83.0-100.0); Mean Platelet Volume 10.1 fL (9.4-12.4); Monocytes # 0.5 K/mcL (0.0-1.3); Monocytes % 10.3 %; Neutrophils # 2.9 K/mcL (1.6-8.9); Platelet Count 120 K/mcL (140-400); Red Blood Count 2.85 M/mcL (3.82-4.97); Segmented Neutrophils % 59.3 %; White Blood Count 4.9 K/mcL (4.3-11.1)
[2020-04-24 03:17] LABS: Lymphocytes # 1.2 K/mcL (0.6-4.6)
[2020-04-24 03:21] LABS: VBG HCO3 57 mEq/L (21-27); VBG PCO2 71 mmHg (41-51); VBG PH 7.51 pH Units (7.32-7.42); VBG PO2 191 mmHg (25-50)
[2020-04-24 03:28] LABS: Albumin 2.9 g/dL (3.5-5.7); Bilirubin,Direct 0.3 mg/dL (0.0-0.2); Bilirubin,Indirect 0.4 mg/dL (0.0-1.0); Bilirubin,Total 0.7 mg/dL (0.3-1.0); Total Protein 5.9 g/dL (6.4-8.9)
[2020-04-24 03:31] LABS: Anisocytosis 2+ (Not Present); Hypochromasia Present (Not Present); Microcytosis Present (Not Present); Platelet Estimate Slight Decrease (Normal)
[2020-04-24 03:32] LABS: Macrocytosis Present (Not Present)
[2020-04-24 04:27] LABS: BUN/Creatinine Ratio 7 (6-26); Blood Urea Nitrogen 4 mg/dL (6-20); Calcium 8.5 mg/dL (8.6-10.3); Carbon Dioxide 43 mEq/L (23-29); Chloride 93 mEq/L (98-107); Glucose 111 mg/dL (70-105); Magnesium 1.5 mg/dL (1.6-2.6); Osmolality,Calculated 288 (280-300); Potassium 3.3 mEq/L (3.5-5.1); Sodium 140 mEq/L (136-145); eGFR For African Americans > 60 (> 60); eGFR For Non-African Americans > 60 (> 60)
[2020-04-24] MEDS: Pantoprazole 40 MG VIAL IVP SCH (05:52)
[2020-04-24] MEDS: Furosemide 40 MG/4 ML VIAL IVP SCH (07:39)
[2020-04-24] MEDS: Metoprolol XL (24 HR) Succ 25 MG TAB.ER.24H PO SCH (10:23)
[2020-04-24] MEDS: DilTIAZem CD (24hr) 120 MG CAP.ER.24H PO SCH (10:24)
[2020-04-24] MEDS: Aspirin 81 MG TAB.CHEW PO SCH (10:24)
[2020-04-24] MEDS: levoFLOXacin 750 MG TABLET PO SCH (10:24)
[2020-04-24] MEDS: Budesonide/Formoterol 160/4.5 1 PUFF INH IH SCH ×2 (11:32→20:10)
[2020-04-24] MEDS ORDERED: *HR* Warfarin 2.5 MG TABLET PO ONE (18:00)
[2020-04-24 19:11] LABS: Hematocrit 28.3 % (35.3-44.9); Hemoglobin 7.9 g/dL (11.5-15.4)
[2020-04-25 02:11] LABS: Mean Corpuscular Hemoglobin 26.8 pg (28.0-33.3); Platelet Count 139 K/mcL (140-400)
[2020-04-25 02:13] LABS: Basophils % 0.5 %; Eosinophils # 0.2 K/mcL (0.0-0.6); Eosinophils % 2.6 %; Hematocrit 28.2 % (35.3-44.9); Immature Granulocytes % 1.2 % (0-4); Lymphocytes # 1.2 K/mcL (0.6-4.6); Lymphocytes % 21.3 %; Mean Corpuscular HGB Conc 28.4 g/dL (31.6-35.5); Mean Corpuscular Volume 94.3 fL (83.0-100.0); Mean Platelet Volume 9.3 fL (9.4-12.4); Monocytes # 0.6 K/mcL (0.0-1.3); Neutrophils # 3.7 K/mcL (1.6-8.9); Red Blood Count 2.99 M/mcL (3.82-4.97); Red Cell Distribution Width 24.8 % (11.5-14.5); Segmented Neutrophils % 64.4 %; White Blood Count 5.7 K/mcL (4.3-11.1)
[2020-04-25 02:15] LABS: VBG HCO3 43 mEq/L (21-27); VBG PCO2 53 mmHg (41-51); VBG PH 7.52 pH Units (7.32-7.42); VBG PO2 146 mmHg (25-50)
[2020-04-25 02:20] LABS: INR 1.3; Prothrombin Time 14.7 Seconds (9.4-12.1)
[2020-04-25 02:40] LABS: BUN/Creatinine Ratio 5 (6-26); Blood Urea Nitrogen 3 mg/dL (6-20); Calcium 8.6 mg/dL (8.6-10.3); Carbon Dioxide 42 mEq/L (23-29); Chloride 94 mEq/L (98-107); Glucose 90 mg/dL (70-105); Magnesium 2.2 mg/dL (1.6-2.6); Osmolality,Calculated 286 (280-300); Potassium 3.5 mEq/L (3.5-5.1); Sodium 140 mEq/L (136-145); eGFR For African Americans > 60 (> 60); eGFR For Non-African Americans > 60 (> 60)
[2020-04-25 02:50] LABS: Anisocytosis 2+ (Not Present); Hypochromasia Present (Not Present); Platelet Estimate Slight Decrease (Normal)
[2020-04-25] MEDS: Ipratropium/Albuterol Neb 3 ML IH SCH ×6 (03:41→23:01)
[2020-04-25] MEDS: Pantoprazole 40 MG VIAL IVP SCH (05:19)
[2020-04-25] MEDS: Insulin LISPRO 300 UNITS/3 ML VIAL SUBQ SCH ×4 (07:28→20:40)
[2020-04-25] MEDS: Budesonide/Formoterol 160/4.5 1 PUFF INH IH SCH ×2 (07:41→19:44)
[2020-04-25] MEDS: DilTIAZem CD (24hr) 120 MG CAP.ER.24H PO SCH (08:44)
[2020-04-25] MEDS: Aspirin 81 MG TAB.CHEW PO SCH (08:44)
[2020-04-25] MEDS: rOPINIRole 1 MG TABLET PO SCH ×3 (08:45→20:37)
[2020-04-25] MEDS: Metoprolol XL (24 HR) Succ 25 MG TAB.ER.24H PO SCH (08:45)
[2020-04-25] MEDS: Divalproex (12 HR) 500 MG TABLET PO SCH ×2 (08:45→20:38)
[2020-04-25] MEDS: acetaZOLAMIDE 250 MG TABLET PO SCH ×3 (08:46→20:38)
[2020-04-25] MEDS: levoFLOXacin 750 MG TABLET PO SCH (08:46)
[2020-04-25] MEDS: Magnesium Oxide 400 MG TABLET PO SCH ×2 (08:46→20:38)
[2020-04-25] MEDS: metroNIDAZOLE 500 MG TABLET PO SCH ×3 (08:46→20:38)
[2020-04-25] MEDS ORDERED: Furosemide 40 MG/4 ML VIAL IVP SCH (09:00)
[2020-04-25] MEDS ORDERED: Furosemide 20 MG/2 ML VIAL IVP SCH (16:00)
[2020-04-25] MEDS: Furosemide 20 MG/2 ML VIAL IVP SCH (17:16)
[2020-04-25] MEDS ORDERED: *HR* Warfarin 2.5 MG TABLET PO ONE (18:00)
[2020-04-26 02:08] LABS: Lymphocytes % 20.4 %
[2020-04-26 02:09] LABS: VBG HCO3 36 mEq/L (21-27); VBG PCO2 56 mmHg (41-51); VBG PH 7.41 pH Units (7.32-7.42); VBG PO2 115 mmHg (25-50)
[2020-04-26 02:09] LABS: Basophils % 0.6 %; Eosinophils # 0.2 K/mcL (0.0-0.6); Eosinophils % 2.6 %; Hematocrit 30.8 % (35.3-44.9); Hemoglobin 8.6 g/dL (11.5-15.4); Immature Granulocytes % 1.3 % (0-4); Lymphocytes # 1.3 K/mcL (0.6-4.6); Mean Corpuscular HGB Conc 27.9 g/dL (31.6-35.5); Mean Corpuscular Hemoglobin 26.6 pg (28.0-33.3); Mean Corpuscular Volume 95.4 fL (83.0-100.0); Mean Platelet Volume 9.5 fL (9.4-12.4); Monocytes # 0.6 K/mcL (0.0-1.3); Monocytes % 10.1 %; Platelet Count 178 K/mcL (140-400); Red Blood Count 3.23 M/mcL (3.82-4.97); White Blood Count 6.2 K/mcL (4.3-11.1)
[2020-04-26 02:14] LABS: INR 1.8; Prothrombin Time 20.4 Seconds (9.4-12.1)
[2020-04-26 02:30] LABS: BUN/Creatinine Ratio 6 (6-26); Blood Urea Nitrogen 4 mg/dL (6-20); Calcium 8.8 mg/dL (8.6-10.3); Carbon Dioxide 35 mEq/L (23-29); Chloride 96 mEq/L (98-107); Glucose 105 mg/dL (70-105); Magnesium 1.7 mg/dL (1.6-2.6); Osmolality,Calculated 281 (280-300); Sodium 137 mEq/L (136-145); eGFR For African Americans > 60 (> 60); eGFR For Non-African Americans > 60 (> 60)
[2020-04-26 02:53] LABS: Anisocytosis 1+ (Not Present); Hypochromasia Present (Not Present); Polychromasia 1+ (Not Present)
[2020-04-26 02:54] LABS: Platelet Estimate Slight Decrease (Normal)
[2020-04-26] MEDS: Ipratropium/Albuterol Neb 3 ML IH SCH ×6 (04:12→23:07)
[2020-04-26] MEDS: Pantoprazole 40 MG VIAL IVP SCH (05:21)
[2020-04-26] MEDS: Budesonide/Formoterol 160/4.5 1 PUFF INH IH SCH ×2 (07:32→19:59)
[2020-04-26] MEDS: DilTIAZem CD (24hr) 120 MG CAP.ER.24H PO SCH (08:21)
[2020-04-26] MEDS: Furosemide 20 MG/2 ML VIAL IVP SCH (08:21)
[2020-04-26] MEDS: levoFLOXacin 750 MG TABLET PO SCH (08:21)
[2020-04-26] MEDS: rOPINIRole 1 MG TABLET PO SCH ×3 (08:21→20:27)
[2020-04-26] MEDS: Aspirin 81 MG TAB.CHEW PO SCH (08:22)
[2020-04-26] MEDS: Magnesium Oxide 400 MG TABLET PO SCH ×2 (08:22→20:27)
[2020-04-26] MEDS: Divalproex (12 HR) 500 MG TABLET PO SCH ×2 (08:22→20:27)
[2020-04-26] MEDS: Metoprolol XL (24 HR) Succ 25 MG TAB.ER.24H PO SCH (08:22)
[2020-04-26] MEDS: Insulin LISPRO 300 UNITS/3 ML VIAL SUBQ SCH ×4 (08:22→20:29)
[2020-04-26] MEDS: metroNIDAZOLE 500 MG TABLET PO SCH ×3 (08:22→20:28)
[2020-04-26] MEDS ORDERED: *HR* Warfarin 2.5 MG TABLET PO ONE (18:00)
[2020-04-27] MEDS: Ipratropium/Albuterol Neb 3 ML IH SCH ×7 (04:07→22:56)
[2020-04-27 04:30] LABS: Basophils % 0.3 %; Hemoglobin 9.1 g/dL (11.5-15.4)
[2020-04-27 04:31] LABS: Eosinophils # 0.2 K/mcL (0.0-0.6); Eosinophils % 3.1 %; Immature Granulocytes % 1.3 % (0-4); Lymphocytes # 1.4 K/mcL (0.6-4.6); Lymphocytes % 22.9 %; Mean Corpuscular HGB Conc 28.4 g/dL (31.6-35.5); Mean Platelet Volume 9.6 fL (9.4-12.4); Monocytes # 0.7 K/mcL (0.0-1.3); Monocytes % 11.8 %; Neutrophils # 3.8 K/mcL (1.6-8.9); Platelet Count 206 K/mcL (140-400); Red Blood Count 3.37 M/mcL (3.82-4.97); Red Cell Distribution Width 25.3 % (11.5-14.5); Segmented Neutrophils % 60.6 %; White Blood Count 6.2 K/mcL (4.3-11.1)
[2020-04-27 04:32] LABS: VBG HCO3 30 mEq/L (21-27); VBG PCO2 47 mmHg (41-51); VBG PH 7.42 pH Units (7.32-7.42); VBG PO2 53 mmHg (25-50)
[2020-04-27 04:38] LABS: INR 2.6
[2020-04-27 04:51] LABS: Anisocytosis 3+ (Not Present); Hypochromasia Present (Not Present); Macrocytosis Present (Not Present); Microcytosis Present (Not Present); Platelet Estimate Normal (Normal); Polychromasia 1+ (Not Present)
[2020-04-27 05:16] LABS: BUN/Creatinine Ratio 7 (6-26); Blood Urea Nitrogen 5 mg/dL (6-20); Calcium 8.8 mg/dL (8.6-10.3); Carbon Dioxide 33 mEq/L (23-29); Chloride 100 mEq/L (98-107); Glucose 97 mg/dL (70-105); Magnesium 1.8 mg/dL (1.6-2.6); Osmolality,Calculated 283 (280-300); Potassium 3.5 mEq/L (3.5-5.1); Sodium 138 mEq/L (136-145); eGFR For African Americans > 60 (> 60); eGFR For Non-African Americans > 60 (> 60)
[2020-04-27] MEDS: Budesonide/Formoterol 160/4.5 1 PUFF INH IH SCH ×2 (07:29→20:45)
[2020-04-27] MEDS: Insulin LISPRO 300 UNITS/3 ML VIAL SUBQ SCH ×4 (07:45→20:27)
[2020-04-27] MEDS: Metoprolol XL (24 HR) Succ 25 MG TAB.ER.24H PO SCH (08:54)
[2020-04-27] MEDS: Magnesium Oxide 400 MG TABLET PO SCH ×2 (08:54→20:20)
[2020-04-27] MEDS: rOPINIRole 1 MG TABLET PO SCH ×3 (08:55→20:20)
[2020-04-27] MEDS: Furosemide 20 MG/2 ML VIAL IVP SCH ×2 (08:55→20:19)
[2020-04-27] MEDS: Divalproex (12 HR) 500 MG TABLET PO SCH ×2 (08:55→20:20)
[2020-04-27] MEDS: DilTIAZem CD (24hr) 120 MG CAP.ER.24H PO SCH (08:56)
[2020-04-27] MEDS: levoFLOXacin 750 MG TABLET PO SCH (08:56)
[2020-04-27] MEDS: metroNIDAZOLE 500 MG TABLET PO SCH ×3 (08:56→20:20)
[2020-04-27] MEDS ORDERED: *HR* Warfarin 2 MG TABLET PO ONE (18:00)
[2020-04-28 01:17] LABS: Hematocrit 31.9 % (35.3-44.9)
[2020-04-28 01:25] LABS: INR 3.2; Prothrombin Time 35.8 Seconds (9.4-12.1)
[2020-04-28 01:38] LABS: BUN/Creatinine Ratio 6 (6-26); Blood Urea Nitrogen 5 mg/dL (6-20); Carbon Dioxide 30 mEq/L (23-29); Chloride 100 mEq/L (98-107); Glucose 75 mg/dL (70-105); Magnesium 1.7 mg/dL (1.6-2.6); Osmolality,Calculated 280 (280-300); Potassium 3.3 mEq/L (3.5-5.1); Sodium 137 mEq/L (136-145); eGFR For African Americans > 60 (> 60); eGFR For Non-African Americans > 60 (> 60)
[2020-04-28] MEDS: Ipratropium/Albuterol Neb 3 ML IH SCH ×6 (04:00→22:55)
[2020-04-28] MEDS: Budesonide/Formoterol 160/4.5 1 PUFF INH IH SCH ×2 (07:34→19:47)
[2020-04-28] MEDS: Insulin LISPRO 300 UNITS/3 ML VIAL SUBQ SCH ×4 (07:38→20:42)
[2020-04-28] MEDS: rOPINIRole 1 MG TABLET PO SCH ×3 (10:04→20:43)
[2020-04-28] MEDS: Magnesium Oxide 400 MG TABLET PO SCH ×2 (10:05→20:43)
[2020-04-28] MEDS: DilTIAZem CD (24hr) 120 MG CAP.ER.24H PO SCH (10:05)
[2020-04-28] MEDS: Metoprolol XL (24 HR) Succ 25 MG TAB.ER.24H PO SCH (10:05)
[2020-04-28] MEDS: metroNIDAZOLE 500 MG TABLET PO SCH ×3 (10:05→20:43)
[2020-04-28] MEDS: levoFLOXacin 750 MG TABLET PO SCH (10:05)
[2020-04-28] MEDS: Divalproex (12 HR) 500 MG TABLET PO SCH ×2 (10:06→20:43)
[2020-04-28] MEDS: Furosemide 20 MG/2 ML VIAL IVP SCH ×2 (10:06→20:44)
[2020-04-29] MEDS: Ipratropium/Albuterol Neb 3 ML IH SCH ×6 (03:45→23:18)
[2020-04-29 04:01] LABS: Hematocrit 33.5 % (35.3-44.9); Hemoglobin 9.6 g/dL (11.5-15.4)
[2020-04-29 04:15] LABS: INR 3.3; Prothrombin Time 36.9 Seconds (9.4-12.1)
[2020-04-29 04:23] LABS: BUN/Creatinine Ratio 6 (6-26); Blood Urea Nitrogen 5 mg/dL (6-20); Carbon Dioxide 33 mEq/L (23-29); Chloride 101 mEq/L (98-107); Glucose 106 mg/dL (70-105); Magnesium 1.9 mg/dL (1.6-2.6); Osmolality,Calculated 286 (280-300); Potassium 3.2 mEq/L (3.5-5.1); Sodium 139 mEq/L (136-145); eGFR For African Americans > 60 (> 60); eGFR For Non-African Americans > 60 (> 60)
[2020-04-29] MEDS: Budesonide/Formoterol 160/4.5 1 PUFF INH IH SCH ×2 (07:49→19:32)
[2020-04-29] MEDS: Insulin LISPRO 300 UNITS/3 ML VIAL SUBQ SCH ×4 (08:42→20:22)
[2020-04-29] MEDS: metroNIDAZOLE 500 MG TABLET PO SCH ×3 (10:10→20:21)
[2020-04-29] MEDS: Divalproex (12 HR) 500 MG TABLET PO SCH ×2 (10:10→20:21)
[2020-04-29] MEDS: Metoprolol XL (24 HR) Succ 25 MG TAB.ER.24H PO SCH (10:10)
[2020-04-29] MEDS: DilTIAZem CD (24hr) 120 MG CAP.ER.24H PO SCH (10:10)
[2020-04-29] MEDS: Magnesium Oxide 400 MG TABLET PO SCH ×2 (10:11→20:21)
[2020-04-29] MEDS: rOPINIRole 1 MG TABLET PO SCH ×3 (10:11→20:22)
[2020-04-29] MEDS: Furosemide 20 MG/2 ML VIAL IVP SCH ×2 (10:11→20:22)
[2020-04-30 03:43] LABS: Hematocrit 34.2 % (35.3-44.9); Hemoglobin 9.6 g/dL (11.5-15.4)
[2020-04-30] MEDS: Ipratropium/Albuterol Neb 3 ML IH SCH ×5 (03:48→20:22)
[2020-04-30 03:51] LABS: INR 2.5; Prothrombin Time 28.6 Seconds (9.4-12.1)
[2020-04-30 03:59] LABS: BUN/Creatinine Ratio 8 (6-26); Blood Urea Nitrogen 6 mg/dL (6-20); Calcium 9.1 mg/dL (8.6-10.3); Carbon Dioxide 31 mEq/L (23-29); Chloride 102 mEq/L (98-107); Glucose 121 mg/dL (70-105); Magnesium 1.9 mg/dL (1.6-2.6); Osmolality,Calculated 289 (280-300); Potassium 3.8 mEq/L (3.5-5.1); Sodium 140 mEq/L (136-145); eGFR For African Americans > 60 (> 60); eGFR For Non-African Americans > 60 (> 60)
[2020-04-30] MEDS: Budesonide/Formoterol 160/4.5 1 PUFF INH IH SCH ×2 (07:29→20:22)
[2020-04-30] MEDS: Insulin LISPRO 300 UNITS/3 ML VIAL SUBQ SCH ×4 (07:39→20:47)
[2020-04-30] MEDS: Furosemide 20 MG/2 ML VIAL IVP SCH ×2 (10:07→20:47)
[2020-04-30] MEDS: rOPINIRole 1 MG TABLET PO SCH ×3 (10:08→20:46)
[2020-04-30] MEDS: Divalproex (12 HR) 500 MG TABLET PO SCH ×2 (10:08→20:46)
[2020-04-30] MEDS: Magnesium Oxide 400 MG TABLET PO SCH ×2 (10:08→20:46)
[2020-04-30] MEDS: metroNIDAZOLE 500 MG TABLET PO SCH ×3 (10:08→20:46)
[2020-04-30] MEDS: DilTIAZem CD (24hr) 120 MG CAP.ER.24H PO SCH (10:09)
[2020-04-30] MEDS: Metoprolol XL (24 HR) Succ 25 MG TAB.ER.24H PO SCH (10:09)
[2020-04-30] MEDS ORDERED: *HR* Warfarin 1 MG TABLET PO ONE (18:00)
[2020-05-01] MEDS: Ipratropium/Albuterol Neb 3 ML IH SCH ×5 (00:14→15:47)
[2020-05-01] MEDS: metroNIDAZOLE 500 MG TABLET PO SCH ×3 (08:04→21:35)
[2020-05-01] MEDS: Metoprolol XL (24 HR) Succ 25 MG TAB.ER.24H PO SCH (08:04)
[2020-05-01] MEDS: DilTIAZem CD (24hr) 120 MG CAP.ER.24H PO SCH (08:04)
[2020-05-01] MEDS: rOPINIRole 1 MG TABLET PO SCH ×3 (08:04→21:35)
[2020-05-01] MEDS: Magnesium Oxide 400 MG TABLET PO SCH ×2 (08:04→21:35)
[2020-05-01] MEDS: Furosemide 20 MG/2 ML VIAL IVP SCH ×2 (08:04→21:36)
[2020-05-01] MEDS: Budesonide/Formoterol 160/4.5 1 PUFF INH IH SCH (08:04)
[2020-05-01] MEDS: Divalproex (12 HR) 500 MG TABLET PO SCH ×2 (08:05→21:35)
[2020-05-01] MEDS: Insulin LISPRO 300 UNITS/3 ML VIAL SUBQ SCH ×4 (08:05→21:31)
[2020-05-01 09:32] LABS: INR 1.7; Prothrombin Time 19.5 Seconds (9.4-12.1)
[2020-05-01] MEDS ORDERED: *HR* Warfarin 2 MG TABLET PO ONE (18:00)
[2020-05-01 21:14] VITALS: BP 111/59
== END 2020-05-01 21:49 | DRG 870 ==
LOC: EMEROOARM 20:37 → 2ANU 20:37 → 2NNU 04-01 03:28 → ICNU 04-01 04:03 → SUATTDRO 04-01 19:38 → 2ANU 04-05 19:21 → 2NNU 04-06 16:48 → 2NENU 04-10 13:23 → ICNU 04-11 18:07 → 2NENU 04-19 07:35
PROVIDERS: ADMIT Family Medicine; ATTEND Internal Medicine
PROC: ENDOEBX (2020-04-22 13:00)

== ENCOUNTER 2020-08-03 19:21 | Inpatient (IN) ==
[2020-08-03] MEDS ORDERED: Azithromycin 500 MG in 0.9 % Sodium Chloride 250 ML IVPB ONE (20:21)
[2020-08-03] MEDS ORDERED: Ipratropium/Albuterol Neb 3 ML IH ONE (20:21)
[2020-08-03] MEDS ORDERED: cefTRIAXone 1,000 MG in Water for inj. (sterile) 10 ML IVP ONE (20:21)
[2020-08-03 20:44] LABS: Basophils % 0.5 %; Eosinophils # 0.1 K/mcL (0.0-0.6); Eosinophils % 1.1 %; Hematocrit 42.1 % (35.3-44.9); Hemoglobin 12.2 g/dL (11.5-15.4); Immature Granulocytes % 2.1 % (0-4); Lymphocytes % 15.7 %; Mean Corpuscular Hemoglobin 30.3 pg (28.0-33.3); Mean Corpuscular Volume 104.7 fL (83.0-100.0); Mean Platelet Volume 9.6 fL (9.4-12.4); Monocytes # 0.6 K/mcL (0.0-1.3); Monocytes % 9.3 %; Neutrophils # 4.4 K/mcL (1.6-8.9); Nucleated Red Blood Cells 0.3 /100 WBC (0); Platelet Count 254 K/mcL (140-400); Red Blood Count 4.02 M/mcL (3.82-4.97); Red Cell Distribution Width 15.6 % (11.5-14.5); Segmented Neutrophils % 71.3 %; White Blood Count 6.2 K/mcL (4.3-11.1)
[2020-08-03 21:11] LABS: Alanine Aminotransferase 5 Units/L (7-52); Albumin 3.3 g/dL (3.5-5.7); Albumin/Globulin Ratio 0.8 (1.1-2.2); Alkaline Phosphatase 117 Units/L (34-104); Aspartate Amino Transferase 8 Units/L (13-39); BUN/Creatinine Ratio 28 (6-26); Bilirubin,Indirect 0.3 mg/dL (0.0-1.0); Bilirubin,Total 0.3 mg/dL (0.3-1.0); Blood Urea Nitrogen 23 mg/dL (6-20); Calcium 9.3 mg/dL (8.6-10.3); Carbon Dioxide 42 mEq/L (23-29); Chloride 92 mEq/L (98-107); Globulin 4.1 g/dL (2.4-3.5); Glucose 263 mg/dL (70-105); Osmolality,Calculated 297 (280-300); Potassium 4.1 mEq/L (3.5-5.1); Sodium 137 mEq/L (136-145); Total Protein 7.4 g/dL (6.4-8.9); Troponin I < 0.03 ng/mL (< 0.04); eGFR For African Americans > 60 (> 60); eGFR For Non-African Americans > 60 (> 60)
[2020-08-03 21:53] LABS: VBG HCO3 48 mEq/L (21-27); VBG PCO2 114 mmHg (41-51); VBG PH 7.23 pH Units (7.32-7.42); VBG PO2 84 mmHg (25-50)
[2020-08-03] MEDS ORDERED: Furosemide 20 MG/2 ML VIAL IVP ONE ×2 (22:57→23:20)
[2020-08-03 23:22] LABS: ABG Base Excess 13 mEq/L (-2 to 3); ABG HCO3 46 mEq/L (21-27); ABG Oxygen Saturation 90 % (95-98); ABG PCO2 110 mmHg (35-45); ABG PH 7.23 pH Units (7.32-7.45); ABG PO2 76 mmHg (85-104); ABG TCO2 49 mEq/L (20-26); Blood Gas VT 450 cc
[2020-08-04] MEDS ORDERED: Naloxone 0.4 MG/ML INJ IVP PRN (00:54)
[2020-08-04 02:15] LABS: Basophils % 0.4 %; Eosinophils % 0.2 %; Hematocrit 40.2 % (35.3-44.9); Hemoglobin 11.9 g/dL (11.5-15.4); Immature Granulocytes % 2.8 % (0-4); Lymphocytes # 0.3 K/mcL (0.6-4.6); Lymphocytes % 6.5 %; Mean Corpuscular HGB Conc 29.6 g/dL (31.6-35.5); Mean Corpuscular Hemoglobin 30.9 pg (28.0-33.3); Mean Corpuscular Volume 104.4 fL (83.0-100.0); Mean Platelet Volume 10.2 fL (9.4-12.4); Monocytes # 0.1 K/mcL (0.0-1.3); Neutrophils # 4.4 K/mcL (1.6-8.9); Nucleated Red Blood Cells 0.4 /100 WBC (0); Platelet Count 241 K/mcL (140-400); Red Blood Count 3.85 M/mcL (3.82-4.97); Red Cell Distribution Width 15.7 % (11.5-14.5); Segmented Neutrophils % 88.1 %
[2020-08-04 02:51] LABS: BUN/Creatinine Ratio 27 (6-26); Blood Urea Nitrogen 23 mg/dL (6-20); Calcium 9.1 mg/dL (8.6-10.3); Carbon Dioxide 44 mEq/L (23-29); Chloride 91 mEq/L (98-107); Glucose 343 mg/dL (70-105); Magnesium 2.2 mg/dL (1.6-2.6); Osmolality,Calculated 301 (280-300); Phosphorous 3.4 mg/dL (2.7-4.5); Potassium 4.3 mEq/L (3.5-5.1); Sodium 137 mEq/L (136-145); eGFR For African Americans > 60 (> 60); eGFR For Non-African Americans > 60 (> 60)
[2020-08-04] MEDS: Nicotine 21 MG PATCH.TD24 TD SCH (03:19)
[2020-08-04] MEDS ORDERED: Dextrose Gel 15 GM/37.5 ML TUBE PO PRN ×2 (03:20)
[2020-08-04] MEDS ORDERED: D5% in Water 1,000 ML IVC PRN (03:20)
[2020-08-04] MEDS ORDERED: *HR* Dextrose 50 % in Water (Vial) 50 ML VIAL IVP PRN (03:20)
[2020-08-04] MEDS: Ipratropium/Albuterol Neb 3 ML IH SCH ×4 (03:52→22:38)
[2020-08-04 04:31] LABS: ABG Base Excess 17 mEq/L (-2 to 3); ABG HCO3 48 mEq/L (21-27); ABG Oxygen Saturation 90 % (95-98); ABG PCO2 97 mmHg (35-45); ABG PO2 70 mmHg (85-104); ABG TCO2 > 50 mEq/L (20-26); Blood Gas VT 450 cc
[2020-08-04 04:53] LABS: Prothrombin Time 11.8 Seconds (9.4-12.1)
[2020-08-04] MEDS ORDERED: MethylPREDNISolone 40 MG/ML VIAL IVP SCH (06:00)
[2020-08-04] MEDS: *HR* Heparin 5,000 UNIT/ML VIAL SQ SCH ×2 (06:29→16:57)
[2020-08-04] MEDS: Insulin LISPRO 300 UNITS/3 ML VIAL SUBQ SCH ×3 (06:30→16:57)
[2020-08-04 07:09] LABS: Bilirubin,Urine Negative (Negative); Blood,Urine Small (Negative); Clarity,Urine Clear (Clear); Color,Urine Light-Yellow (Yellow); Glucose,Urine (UA) 50 mg/dL (Normal); Hyaline Casts,Urine Moderate per lpf (None Seen); Ketones,Urine Negative (Negative); Leukocyte Esterase,Urine Negative (Negative); Nitrite,Urine Negative (Negative); Protein,Urine 100 mg/dL (Neg-Trace); Specific Gravity,Urine 1.021 (1.010-1.025); Urobilinogen,Urine Normal (Normal); WBC,Urine 0-3 per hpf (0-3)
[2020-08-04] MEDS ORDERED: tiZANidine 4 MG TABLET PO PRN (07:19)
[2020-08-04] MEDS ORDERED: Gabapentin 400 MG CAPSULE PO SCH (09:00)
[2020-08-04] MEDS: Metoprolol XL (24 HR) Succ 25 MG TAB.ER.24H PO SCH (09:25)
[2020-08-04] MEDS: Furosemide 40 MG/4 ML VIAL IVP SCH ×2 (09:25→22:08)
[2020-08-04] MEDS: Divalproex (12 HR) 500 MG TABLET PO SCH ×2 (09:25→22:08)
[2020-08-04] MEDS: Aspirin Enteric Coated 81 MG Tablet PO SCH (09:25)
[2020-08-04] MEDS: Budesonide/Formoterol 160/4.5 1 PUFF INH IH SCH ×2 (09:54→22:37)
[2020-08-04] MEDS: predniSONE 20 MG TABLET PO SCH (14:31)
[2020-08-04] MEDS: rOPINIRole 1 MG TABLET PO PRN (14:31)
[2020-08-04] MEDS: *HR* HYDROcodone/Acet 10/325 mg TABLET PO PRN ×2 (14:31→23:46)
[2020-08-04] MEDS ORDERED: Warfarin perPT PO PRN (18:00)
[2020-08-04] MEDS ORDERED: Azithromycin 500 MG in 0.9 % Sodium Chloride 250 ML IVPB SCH (21:00)
[2020-08-04] MEDS ORDERED: Insulin DETEMIR 100 UNIT/ML X5UNITS SUBQ SCH (21:00)
[2020-08-04] MEDS ORDERED: Insulin LISPRO 300 UNITS/3 ML VIAL SUBQ SCH (21:00)
[2020-08-05] MEDS: Nicotine 21 MG PATCH.TD24 TD SCH (02:17)
[2020-08-05 03:37] LABS: VBG HCO3 44 mEq/L (21-27); VBG PCO2 69 mmHg (41-51); VBG PH 7.42 pH Units (7.32-7.42); VBG PO2 78 mmHg (25-50)
[2020-08-05 03:41] LABS: INR 0.9; Prothrombin Time 10.9 Seconds (9.4-12.1)
[2020-08-05 04:19] LABS: BUN/Creatinine Ratio 27 (6-26); Blood Urea Nitrogen 27 mg/dL (6-20); Carbon Dioxide > 45 mEq/L (23-29); Chloride 88 mEq/L (98-107); Glucose 429 mg/dL (70-105); Osmolality,Calculated 305 (280-300); Potassium 4.5 mEq/L (3.5-5.1); Sodium 136 mEq/L (136-145); eGFR For African Americans > 60 (> 60); eGFR For Non-African Americans 58 (> 60)
[2020-08-05] MEDS: Ipratropium/Albuterol Neb 3 ML IH SCH ×2 (04:24→10:25)
[2020-08-05] MEDS: *HR* Heparin 5,000 UNIT/ML VIAL SQ SCH (05:56)
[2020-08-05] MEDS ORDERED: Furosemide 40 MG TABLET PO SCH (08:00)
[2020-08-05] MEDS: Insulin LISPRO 300 UNITS/3 ML VIAL SUBQ SCH ×2 (08:17→11:29)
[2020-08-05] MEDS: Divalproex (12 HR) 500 MG TABLET PO SCH (08:18)
[2020-08-05] MEDS: Aspirin Enteric Coated 81 MG Tablet PO SCH (08:18)
[2020-08-05] MEDS: Metoprolol XL (24 HR) Succ 25 MG TAB.ER.24H PO SCH (08:19)
[2020-08-05] MEDS: predniSONE 20 MG TABLET PO SCH (08:19)
[2020-08-05] MEDS ORDERED: Azithromycin 250 MG TABLET PO SCH (09:00)
[2020-08-05 10:04] VITALS: BP 148/68
[2020-08-05] MEDS: Budesonide/Formoterol 160/4.5 1 PUFF INH IH SCH (10:25)
[2020-08-05] MEDS: *HR* HYDROcodone/Acet 10/325 mg TABLET PO PRN (11:34)
[2020-08-05] MEDS: rOPINIRole 1 MG TABLET PO PRN (11:35)
== END 2020-08-05 15:25 | disposition home health service (06) | DRG 291 ==
LOC: 2NENU 19:21 → EMEROOARM 19:21 → SUATTDRO 23:41 → 2NENU 08-04 00:55
PROVIDERS: ADMIT Family Medicine; ATTEND Internal Medicine

== ENCOUNTER 2020-08-21 15:28 | Observation (INO) ==
[2020-08-22] MEDS ORDERED: Acetaminophen 325 MG TABLET PO PRN (03:13)
[2020-08-22] MEDS ORDERED: Ondansetron 4 MG/2 ML VIAL IVP PRN (03:13)
[2020-08-22] MEDS ORDERED: Naloxone 0.4 MG/ML INJ IVP PRN (03:13)
[2020-08-22] MEDS ORDERED: Dextrose Gel 15 GM/37.5 ML TUBE PO PRN ×2 (04:23)
[2020-08-22] MEDS ORDERED: *HR* Dextrose 50 % in Water (Vial) 50 ML VIAL IVP PRN (04:23)
[2020-08-22] MEDS ORDERED: D5% in Water 1,000 ML IVC PRN (04:23)
[2020-08-22 04:48] LABS: Basophils % 0.3 %; Hematocrit 38.4 % (35.3-44.9); Hemoglobin 11.7 g/dL (11.5-15.4); Immature Granulocytes % 0.7 % (0-4); Lymphocytes # 0.9 K/mcL (0.6-4.6); Lymphocytes % 14.1 %; Mean Corpuscular HGB Conc 30.5 g/dL (31.6-35.5); Mean Corpuscular Hemoglobin 30.2 pg (28.0-33.3); Mean Corpuscular Volume 99.2 fL (83.0-100.0); Mean Platelet Volume 10.9 fL (9.4-12.4); Monocytes # 0.3 K/mcL (0.0-1.3); Neutrophils # 4.8 K/mcL (1.6-8.9); Platelet Count 157 K/mcL (140-400); Red Blood Count 3.87 M/mcL (3.82-4.97); Red Cell Distribution Width 16.2 % (11.5-14.5); Segmented Neutrophils % 79.9 %
[2020-08-22 04:53] LABS: Prothrombin Time 11.9 Seconds (9.4-12.1)
[2020-08-22 05:06] LABS: Platelet Estimate Normal (Normal); Polychromasia 1+ (Not Present)
[2020-08-22] MEDS: methylPREDNISolone 125 MG/2 ML VIAL IVP SCH ×2 (05:10→17:18)
[2020-08-22] MEDS: Insulin LISPRO 300 UNITS/3 ML VIAL SUBQ SCH ×6 (05:18→20:44)
[2020-08-22 05:24] LABS: Alanine Aminotransferase 4 Units/L (7-52); Albumin 3.1 g/dL (3.5-5.7); Albumin/Globulin Ratio 0.8 (1.1-2.2); Alkaline Phosphatase 105 Units/L (34-104); Aspartate Amino Transferase 8 Units/L (13-39); BUN/Creatinine Ratio 28 (6-26); Bilirubin,Total 0.3 mg/dL (0.3-1.0); Blood Urea Nitrogen 31 mg/dL (6-20); Calcium 9.1 mg/dL (8.6-10.3); Carbon Dioxide 43 mEq/L (23-29); Chloride 92 mEq/L (98-107); Globulin 3.7 g/dL (2.4-3.5); Glucose 165 mg/dL (70-105); Magnesium 2.5 mg/dL (1.6-2.6); Osmolality,Calculated 292 (280-300); Potassium 5.8 mEq/L (3.5-5.1); Sodium 136 mEq/L (136-145); Total Protein 6.8 g/dL (6.4-8.9); Troponin I < 0.03 ng/mL (< 0.04); eGFR For African Americans > 60 (> 60); eGFR For Non-African Americans 52 (> 60)
[2020-08-22 06:07] LABS: Thyroid Stimulating Hormone 0.722 mcIU/mL (0.340-5.600)
[2020-08-22] MEDS ORDERED: *HR* Dextrose 50 % in Water (Vial) 50 ML VIAL IVP ONE (07:49)
[2020-08-22] MEDS ORDERED: Insulin Human Regular 10 UNIT in 0.9 % Sodium Chloride 10 ML IV ONE (07:49)
[2020-08-22 09:27] LABS: Bilirubin,Urine Negative (Negative); Blood,Urine Negative (Negative); Clarity,Urine Clear (Clear); Color,Urine Yellow (Yellow); Glucose,Urine (UA) Normal (Normal); Hyaline Casts,Urine Few per lpf (None Seen); Ketones,Urine Negative (Negative); Leukocyte Esterase,Urine Negative (Negative); Nitrite,Urine Negative (Negative); Protein,Urine 50 mg/dL (Neg-Trace); RBC,Urine 0-3 per hpf (0-3); Specific Gravity,Urine 1.021 (1.010-1.025); Squamous Epithelial Cell,Urine Few per hpf (None-Few); Urobilinogen,Urine Normal (Normal); WBC,Urine 0-3 per hpf (0-3)
[2020-08-22] MEDS: Ipratropium/Albuterol Neb 3 ML IH SCH ×2 (17:31→22:24)
[2020-08-22] MEDS: rOPINIRole 1 MG TABLET PO SCH (20:43)
[2020-08-23] MEDS ORDERED: Gabapentin 400 MG CAPSULE PO SCH (04:30)
[2020-08-23] MEDS: Ipratropium/Albuterol Neb 3 ML IH SCH ×2 (04:32→10:38)
[2020-08-23] MEDS: methylPREDNISolone 125 MG/2 ML VIAL IVP SCH (05:11)
[2020-08-23 08:43] LABS: Basophils % 0.2 %; Eosinophils % 0.2 %; Hematocrit 36.6 % (35.3-44.9); Hemoglobin 10.6 g/dL (11.5-15.4); Immature Granulocytes % 0.2 % (0-4); Lymphocytes # 1.3 K/mcL (0.6-4.6); Lymphocytes % 27.5 %; Mean Corpuscular Hemoglobin 29.2 pg (28.0-33.3); Mean Corpuscular Volume 100.8 fL (83.0-100.0); Mean Platelet Volume 10.7 fL (9.4-12.4); Monocytes # 0.4 K/mcL (0.0-1.3); Monocytes % 8.4 %; Platelet Count 162 K/mcL (140-400); Red Blood Count 3.63 M/mcL (3.82-4.97); Red Cell Distribution Width 16.3 % (11.5-14.5); Segmented Neutrophils % 63.5 %; White Blood Count 4.7 K/mcL (4.3-11.1)
[2020-08-23] MEDS ORDERED: Neosporin OINT 15 GM TUBE TP SCH (09:00)
[2020-08-23] MEDS: rOPINIRole 1 MG TABLET PO SCH (09:01)
[2020-08-23] MEDS: Insulin LISPRO 300 UNITS/3 ML VIAL SUBQ SCH ×2 (09:02→12:38)
[2020-08-23 09:12] LABS: BUN/Creatinine Ratio 31 (6-26); Blood Urea Nitrogen 29 mg/dL (6-20); Calcium 8.9 mg/dL (8.6-10.3); Carbon Dioxide 45 mEq/L (23-29); Chloride 89 mEq/L (98-107); Glucose 254 mg/dL (70-105); Osmolality,Calculated 292 (280-300); Potassium 4.3 mEq/L (3.5-5.1); Sodium 134 mEq/L (136-145); eGFR For African Americans > 60 (> 60); eGFR For Non-African Americans > 60 (> 60)
[2020-08-23 12:15] VITALS: BP 112/64
== END 2020-08-23 15:08 | disposition home or self-care (01) ==
LOC: 2ANU
PROVIDERS: ADMIT Internal Medicine; ATTEND Internal Medicine